=== PATIENT | female | born 1990 | race Caucasian/White ===

== ENCOUNTER 2018-03-09 19:05 | Emergency (ER) | payer OTHER, MEDICAID, SELFPAY ==
[2018-03-09 19:19] VITALS: BP 139/82; PULSE 69; RESP 15; TEMP 36.5; O2SAT 100; BMI 29.2
--- NOTE | 2018-03-09 19:44 | ED.PREGNANCY ---
HPI - General Chief complaint: OB/Uterine Contractions Stated complaint: THINKS SHE HAD MISCARRIAGE Time Seen by Provider: 03/09/18 19:34 Source: patient Mode of arrival: ambulatory Limitations: no limitations History of Present Illness HPI Narrative: Patient is a at which she thinks is 6 weeks EGA by her last menstrual period unknown blood type here for evaluation of vaginal bleeding. She states that the vaginal bleeding started earlier this evening. She states that it is as much as a menstrual cycle. She states she had multiple positive home tests in the past several weeks. She states she does have some cramping. No urinary symptoms. Has not been evaluated by an OB provider to this point in this . Patient : Yes Related Data Home Medications Medication Instructions Recorded Confirmed [id number] fumarate-FA 1 cap PO QAM 03/09/18 03/09/18 [] Allergies Allergy/AdvReac Type Severity Reaction Status Date / Time acetaminophen [From Vicodin] AdvReac Verified 03/09/18 19:18 hydrocodone [From Vicodin] AdvReac Verified 03/09/18 19:18 Review of Systems Constitutional Denies chills, Denies fever(s), Denies lethargy and Denies weakness Gastrointestinal Comments: Some lower abdominal cramping Genitourinary Comments: Vaginal bleeding Integumentary/Breasts Denies pruritus, Denies erythema, Denies rash and Denies wounds Neurologic Denies weakness Hematologic/Lymphatic Denies easy bruising PMFSH - Past Medical History Medical history: Reports no medical history Surgical history: Reports no surgical history Patient : Yes Family history: Reports no significant family history Exam Initial Vital Signs Initial Vital Signs: Vital Signs Temperature 97.7 F 03/09/18 19:19 Pulse Rate 69 03/09/18 19:19 Respiratory Rate 15 03/09/18 19:19 Blood Pressure 139/82 H 03/09/18 19:19 Pulse Oximetry 100 03/09/18 19:19 Const General: cooperative and well developed Nutritional Appearance: well nourished Orientation: alert, awake, oriented x3 and not confused Resp Effort & Inspection: normal respiratory effort, able to speak in complete sentences, no respiratory distress and no use of accessory muscles Auscultation: clear to auscultation bilaterally, no rales, no rhonchi and no wheezes Cardio Rate: regular rate Rhythm: regular rhythm Heart Sounds: no click, no gallops, no murmurs and no rubs Pulses: normal peripheral pulses GI Inspection: non-distended Palpation: soft, no hepatosplenomegaly, No guarding, No pulsatile mass and No tender Auscultation: normal bowel sounds Skin General: no rashes or lesions noted, No jaundice and No petechiae Neuro General: alert, oriented x3, gait normal and no focal motor deficits Speech: speech normal Extrem General: full ROM, no clubbing, cyanosis or edema, no pedal edema and no calf tenderness Course Orders Ordered: ED Orders 03/09/18 19:36 Urine Culture Stat Urine Microscopic Stat 03/09/18 19:44 US pelvic complete Stat 03/09/18 19:56 ABO RH Type Stat Basic Metabolic Panel Stat Complete Blood Count AUTO DIFF Stat HCG Quantitative Stat Vital Signs - 8 hr 03/09/18 19:19 03/09/18 20:42 03/09/18 22:00 Temperature 97.7 F Pulse Rate 69 67 72 Respiratory Rate 15 16 18 Blood Pressure 139/82 H 122/79 H Blood Pressure [Right Arm] 124/81 H Pulse Oximetry 100 100 100 MDM - OB/Uterine Contractions Lab Data Attestation: I reviewed the patient's lab results. Result diagrams: 03/09/18 19:56 03/09/18 19:56 Lab Results 03/09/18 03/09/18 03/09/18 Range/Units 19:36 19:56 19:56 WBC (4.5-11.0) X10^3/uL RBC (4.0-5.2) X10^6/uL Hgb (12.0-16.0) g/dL Hct (36-46) % MCV (80-100) fL MCH (26-34) PG MCHC (30-36) % RDW (11.6-14.8) % Plt Count (150-400) X10^3/uL Neut % (Auto) (50-75) % Lymph % (Auto) (25-40) % [place] % (Auto) (3-14) % Eos % (Auto) (2-4) % Baso % (Auto) (0-2) % Neut # (Auto) (0316-8998) /uL Sodium (137-145) mmol/L Potassium (3.4-5.1) mmol/L Chloride (98-107) mmol/L Carbon Dioxide (22-32) mmol/L BUN (7-17) mg/dL Creatinine (0.52-1.04) mg/dL Estimated GFR (>60) mL/min BUN/Creatinine Ratio (6-22) Glucose (70-100) mg/dL Calcium (8.4-10.2) mg/dL HCG, Quant 16.77 mIU/mL Urine RBC 10-30/hpf H (0-5/HPF) Urine WBC 10-30/hpf H (0-5/HPF) Urine Bacteria None seen (None) Ur Culture Indicated? Specimen cultured Micro UA Comment Not Reportable Blood Type O Positive 03/09/18 03/09/18 Range/Units 19:56 19:56 WBC 11.1 H (4.5-11.0) X10^3/uL RBC 4.36 (4.0-5.2) X10^6/uL Hgb 13.1 (12.0-16.0) g/dL Hct 38.8 (36-46) % MCV 89.0 (80-100) fL MCH 30.1 (26-34) PG MCHC 33.8 (30-36) % RDW 12.5 (11.6-14.8) % Plt Count 362 (150-400) X10^3/uL Neut % (Auto) 67.9 (50-75) % Lymph % (Auto) 22.3 L (25-40) % [place] % (Auto) 6.8 (3-14) % Eos % (Auto) 1.9 L (2-4) % Baso % (Auto) 1.1 (0-2) % Neut # (Auto) 7500 H (5422-8847) /uL Sodium 142 (137-145) mmol/L Potassium 4.1 (3.4-5.1) mmol/L Chloride 104 (98-107) mmol/L Carbon Dioxide 27 (22-32) mmol/L BUN 12 (7-17) mg/dL Creatinine 0.80 (0.52-1.04) mg/dL Estimated GFR > 60.0 (>60) mL/min BUN/Creatinine Ratio 15.0 (6-22) Glucose 102 H (70-100) mg/dL Calcium 9.6 (8.4-10.2) mg/dL HCG, Quant mIU/mL Urine RBC (0-5/HPF) Urine WBC (0-5/HPF) Urine Bacteria (None) Ur Culture Indicated? Micro UA Comment Blood Type Imaging Data Pelvic ultrasound: Radiologist's impression: PROCEDURE: US PELVIC COMPLETE INDICATIONS: approx 6 weeks ega with bleeding TECHNIQUE: Real-time scanning was performed of the pelvic organs, with image documentation. Additional endovaginal scanning was necessary due to incomplete visualization of the adnexal and endometrial structures by transabdominal scanning. COMPARISON: None. FINDINGS: Transabdominal scanning: Limited scanning through the kidneys shows no hydronephrosis. No pathologic free abdominal or pelvic fluid. Endovaginal scanning: Uterus: Uterus is normal in size at 8.5 x 4.4 x 5.3 cm. The endometrium measures 16 mm in combined thickness. Ovaries: Right ovary measures 2.4 x 1.6 x 2.8 CM. The left ovary measures 3.4 x 2.7 x 2.8 CM. There is a 2.3 cm left ovarian cyst. IMPRESSION: No intrauterine gestation identified. Given the patient's positive test possibilities include spontaneous , normal too small for identification with ultrasound, or ectopic . No direct evidence of ectopic is identified. Please note ultrasound cannot exclude ectopic . Recommend short term clinical and sonographic followup. Dictated by: Mo Bustamante M.D. on 03/09/2018 at 21:02 MDM Narrative Medical decision making narrative: Patient is Rh positive. No IUP seen on pelvic ultrasound however her hCG quant is only 14. I suspect in this clinical setting that she is having a miscarriage however there is some question about her exact gestational age. I discussed all this with the patient. Informed her that she needed to contact her primary doctor tomorrow to schedule a repeat HCG quant in 48 hr. She was given return precautions. She expressed understanding and agreement with plan. Discharge Plan Departure Patient Disposition: Home, Self-Care Clinical Impression: Miscarriage, threatened, early Discharge Date/Time: 03/09/18 21:50 Interventions: ED Discharge Assessment Last Done: 03/09/18 22:00 Instructions: Dealing With Miscarriage, DI for Miscarriage Activity Restrictions/Additional Instructions: Tomorrow you need to contact your primary care doctor's office to schedule a recheck all of your hormone level in at least 48 hr. Return to the emergency department for any new symptoms, worsening pain, bleeding more than 1 pad an hour for 4 hr or any other concerning symptoms. Recommend that you continue to take the vitamins as directed. Prescriptions: No Action [id number] fumarate-FA [] 28-800 mg-mcg Tablet 1 cap PO QAM RF: 0
[2018-03-09 19:50] LABS: Bacteria Urine None Seen
--- NOTE | 2018-03-09 20:01 | PC.NURSE ---
pt reports vag spotting started at work this afternoon and progressively increasing in amt. Bright red w/o clots and mild abd cramping associated with this vag bleeding.
[2018-03-09 20:02] LABS: Add Manual Diff / Slide Review NO; Basophils Percent Auto 1.1 % (0-2); Eosinophils Percent Auto 1.9 % (2-4); Hematocrit 38.8 % (36-46); Hemoglobin 13.1 g/dL (12.0-16.0); Lymphocytes Percent Auto 22.3 % (25-40); Mean Corpuscular HGB Conc 33.8 % (30-36); Mean Corpuscular Hemoglobin 30.1 PG (26-34); Monocytes Percent Auto 6.8 % (3-14); Neutrophils Absolute Auto 7500 /uL (3000-5900); Neutrophils Percent Auto 67.9 % (50-75); Platelet Count 362 X10^3/uL (150-400); Red Blood Cell Count 4.36 X10^6/uL (4.0-5.2); Red Cell Distribution Width 12.5 % (11.6-14.8); White Blood Cell Count 11.1 X10^3/uL (4.5-11.0)
[2018-03-09 20:05] LABS: Culture Indicated Urine Specimen Cultured; RBC Urine 10-30/HPF (0-5/HPF); WBC Urine 10-30/HPF (0-5/HPF)
[2018-03-09 20:14] LABS: Blood Urea Nitrogen 12 mg/dL (7-17); Calcium 9.6 mg/dL (8.4-10.2); Carbon Dioxide 27 mmol/L (22-32); Chloride 104 mmol/L (98-107); Estimated Glomerular Filt Rate > 60.0 mL/min (>60); Glucose 102 mg/dL (70-100); HEMOLYSIS < 15 (0-50); Potassium 4.1 mmol/L (3.4-5.1); Sodium 142 mmol/L (137-145)
--- NOTE | 2018-03-09 20:33 | PC.NURSE ---
Stand by assist provided for US tech Brent for pelvic US test
[2018-03-09 20:42] VITALS: BP 124/81; PULSE 67; RESP 16; O2SAT 100
--- NOTE | 2018-03-09 21:28 | PC.NURSE ---
Care endorsed to SMITH Almanza for continuation of care.
[2018-03-09 22:00] VITALS: BP 122/79; PULSE 72; RESP 18; O2SAT 100
[2018-03-15 20:56] LABS: HCG Quantitative /Beta subunit 16.77 mIU/mL
== END 2018-03-09 21:50 | disposition home or self-care (01) ==
PROVIDERS: Emergency Provider Emergency Medicine; PCP Family Medicine
DX: O20.0 Threatened abortion (principal)
CPT/HCPCS: 36415; 76856; 80048; 81003; 81015; 81025; 84702; 85025; 86900; 86901; 87077; 87086; 99282; 99284

== ENCOUNTER → 2018-09-19 10:25 | Outpatient (CLI) | payer OTHER, MEDICAID, SELFPAY | PROVIDERS: Visit Provider Physician Assistant | DX: N39.0 Urinary tract infection, site not specified (principal); N94.9 Unspecified condition associated with female genital organs and menstrual cycle | CPT/HCPCS: 87086; 87210; 87491; 87591 ==

== ENCOUNTER → 2018-12-24 12:48 | Outpatient (CLI) | payer OTHER, MEDICAID, SELFPAY | PROVIDERS: Visit Provider Physician Assistant | DX: N89.8 Other specified noninflammatory disorders of vagina (principal) | CPT/HCPCS: 87210 ==

== ENCOUNTER 2019-09-12 20:55 | Emergency (ER) | payer OTHER, MEDICAID, SELFPAY ==
[2019-09-12 21:01] VITALS: BP 129/77; PULSE 64; RESP 24; TEMP 35.8; O2SAT 97
[2019-09-12] MEDS: SODIUM CHLORIDE 0.9% 1,000 ML 1000 ML IV ×2 (21:13→22:20)
[2019-09-12] MEDS: ONDANSETRON 4 MG/2 ML INJ IV ×2 (21:13→21:47)
[2019-09-12] MEDS: KETOROLAC 60 MG/2 ML VIAL 30 MG IV (21:47)
[2019-09-12 21:48] LABS: Add Manual Diff / Slide Review NO; Basophils Absolute Auto 100 /uL (0-100); Basophils Percent Auto 0.5 % (0-2); Eosinophils Absolute Auto 0 /uL (0-450); Eosinophils Percent Auto 0.1 % (2-4); Hematocrit 40.5 % (36-46); Hemoglobin 13.8 g/dL (12.0-16.0); Lymphocytes Absolute Auto 1700 /uL (1100-4500); Lymphocytes Percent Auto 9.2 % (25-40); Mean Corpuscular HGB Conc 34.1 % (30-36); Mean Corpuscular Hemoglobin 30.2 PG (26-34); Mean Corpuscular Volume 88.7 fL (80-100); Monocytes Absolute Auto 400 /uL (0-900); Monocytes Percent Auto 2.3 % (3-14); Neutrophils Absolute Auto 16600 /uL (1500-7000); Neutrophils Percent Auto 87.9 % (50-75); Platelet Count 424 X10^3/uL (150-400); Red Blood Cell Count 4.56 X10^6/uL (4.0-5.2); Red Cell Distribution Width 13.1 % (11.6-14.8); White Blood Cell Count 18.9 X10^3/uL (4.5-11.0)
[2019-09-12 21:50] LABS: Alanine Aminotransferase 25 IU/L (<35); Albumin 4.7 g/dL (3.5-5.0); Albumin Globulin Ratio 1.5 (1.0-2.8); Alkaline Phosphatase 86 U/L (38-126); Aspartate Aminotransferase 45 IU/L (14-36); BUN Creatinine Ratio 16.7 (6-22); Bilirubin Total 0.6 mg/dL (0.2-1.3); Blood Urea Nitrogen 15 mg/dL (7-17); Calcium 9.9 mg/dL (8.4-10.2); Carbon Dioxide 18 mmol/L (22-32); Chloride 104 mmol/L (98-107); Estimated Glomerular Filt Rate > 60.0 mL/min (>60); Globulin 3.1 g/dL (1.7-4.1); Glucose 180 mg/dL (70-100); HEMOLYSIS < 15 (0-50); Lipase 101 U/L (23-300); Potassium 3.8 mmol/L (3.4-5.1); Sodium 137 mmol/L (137-145); Total Protein 7.8 g/dL (6.3-8.2)
--- NOTE | 2019-09-12 22:06 | ED.ABDPAIN ---
HPI - Abdominal Pain General Chief Complaint: Abdominal Pain Stated Complaint: ABDOMINAL PAIN Time Seen by Provider: 09/12/19 22:06 Source: patient and family Mode of arrival: Ambulatory Limitations: no limitations History of Present Illness HPI narrative: 29-year-old female comes to the emergency department with complaint of abdominal pain, nausea and vomiting and diarrhea that all started today about 5:00 a.m. this evening. Patient has not had fevers but she has felt super chilled. She has goose bumps when I evaluate her. She complains of generalized abdominal pains not really localize to 1 area but does kind of radiate to the back area too. She states that this all started when she felt like she had to go to the bathroom and she had a large amount of diarrhea. She denies any black or blood in her stool. Any urinary symptoms. Patient denies any medical problems otherwise. States she has not had similar symptoms in the past. Denies any prior surgical history. States that she is allergic to Vicodin and it sometimes makes her throw up. Patient states she uses marijuana but denies alcohol, tobacco or other illicit. Related Data Home Medications Medication Instructions Recorded Confirmed [id number] fumarate-FA 1 cap PO QAM 03/09/18 12/24/18 [] Previous Rx's Medication Instructions Recorded fluconazole 150 mg tablet 150 mg PO ONCE #1 tab 12/24/18 Allergies Allergy/AdvReac Type Severity Reaction Status Date / Time acetaminophen [From Vicodin] AdvReac Verified 12/24/18 12:05 hydrocodone [From Vicodin] AdvReac Verified 12/24/18 12:05 Review of Systems Review of Systems ROS Unobtainable: All systems reviewed & are unremarkable except as noted in HPI and below Patient History Medical History 2 (Resolved) Vaginal delivery (Resolved) Social History Smoking Status: Never smoker alcohol intake frequency: 0-2 drinks per day Substance Use Type: marijuana Exam Narrative Exam Narrative: GENERAL: Alert and oriented x three, moderately obese female in moderate distress. Patient appears pale and uncomfortable. HEENT: Head normocephalic, atraumatic, EOMI, pupils reactive, face symmetric, moist mucous membranes NECK: Supple, full range of motion CARDIOVASCULAR: Regular rate and rhythm without murmurs, rubs or gallops. RESPIRATORY: Breath sounds equal bilaterally, no wheezes rales or rhonchi. ABDOMEN: Soft, generalized tenderness. Nondistended. Normoactive bowel sounds all 4 quadrants. No guarding or rebound, rigidity, no mass : No CVA tenderness EXTREMITIES: Normal range of motion, no clubbing or edema. Neurovascularly intact NEUROLOGICAL: Cranial nerves II through XII grossly intact. Moving all extremities SKIN: Warm, dry, no petechiae, no rashes or lesions. Patient does have goosebumps and piloerection Initial Vital Signs Initial Vital Signs: Vital Signs Temperature 96.4 F L 09/12/19 21:01 Pulse Rate 64 09/12/19 21:01 Respiratory Rate 24 09/12/19 21:01 Blood Pressure 129/77 09/12/19 21:01 Pulse Oximetry 97 09/12/19 21:01 Course Orders Ordered: ED Orders 09/12/19 22:00 Urine Microscopic Stat 09/12/19 22:13 CT abdomen pelvis w con Stat 09/12/19 22:35 Lactate (Lactic Acid) Stat 09/12/19 22:41 Blood Culture Stat 09/12/19 23:14 EKG-12 Lead Stat 09/13/19 02:36 Troponin & CK Cardiac Panel Stat Sodium Chloride (Normal Saline 0.9%) 1,000 mls @ 1,000 mls/hr IV BOLUS PRN PRN Reason: Fluid replacement Last Infusion: 09/13/19 00:15 Dose: 0 mls/hr Documented by: Admin: 09/12/19 22:20 Dose: 1,000 mls/hr Documented by: BRIAN Discontinued Medications Diphenhydramine HCl (Benadryl) 50 mg IV NOW ONE Stop: 09/13/19 01:55 Last Admin: 09/13/19 02:00 Dose: 50 mg Documented by: JESSICA Sodium Chloride (Normal Saline 0.9%) 1,000 mls @ 1,000 mls/hr IV BOLUS ONE Stop: 09/12/19 22:08 Last Infusion: 09/12/19 22:20 Dose: 0 mls/hr Documented by: Admin: 09/12/19 21:13 Dose: 1,000 mls/hr Documented by: BHARATI Sodium Chloride (Normal Saline 0.9%) 1,000 mls @ 1,000 mls/hr IV BOLUS ONE Stop: 09/13/19 01:25 Last Infusion: 09/13/19 03:16 Dose: 0 mls/hr Documented by: Admin: 09/13/19 01:15 Dose: 1,000 mls/hr Documented by: JESSICA Ketorolac Tromethamine (Toradol) 30 mg IV NOW ONE Stop: 09/12/19 21:42 Last Admin: 09/12/19 21:47 Dose: 30 mg Documented by: BRIAN Lorazepam (Ativan) 0.5 mg IV NOW ONE Stop: 09/12/19 22:11 Last Admin: 09/12/19 22:20 Dose: 0.5 mg Documented by: BRIAN Morphine Sulfate (Morphine) 4 mg IV NOW ONE Stop: 09/12/19 22:11 Last Admin: 09/12/19 22:19 Dose: 4 mg Documented by: BRIAN Ondansetron HCl (Zofran) 4 mg IV NOW ONE Stop: 09/12/19 21:11 Last Admin: 09/12/19 21:13 Dose: 4 mg Documented by: BHARATI Ondansetron HCl (Zofran) 4 mg IV NOW ONE Stop: 09/12/19 21:41 Last Admin: 09/12/19 21:47 Dose: 4 mg Documented by: BRIAN Ondansetron HCl (Zofran Odt Prepack) 1 bottle MISC SEEINSTR ONE Stop: 09/13/19 01:34 Last Admin: 09/13/19 01:44 Dose: 1 bottle Documented by: JAMESFARL Prochlorperazine (Compazine) 10 mg IV NOW ONE Stop: 09/13/19 01:55 Last Admin: 09/13/19 02:00 Dose: 10 mg Documented by: JESSICA Vital Signs Vital signs: Vital Signs - 8 hr 09/12/19 22:48 09/13/19 00:04 09/13/19 01:21 Pulse Rate 45 L 48 L 70 Respiratory Rate 16 14 23 Blood Pressure Blood Pressure [Right Arm] 151/84 H 108/49 L 141/81 H Pulse Oximetry 93 98 100 09/13/19 02:00 09/13/19 02:34 09/13/19 04:42 Pulse Rate 53 L 50 L 64 Respiratory Rate 16 10 L Blood Pressure 163/85 H Blood Pressure [Right Arm] 134/81 107/66 Pulse Oximetry 100 99 09/13/19 05:38 09/13/19 06:08 Pulse Rate 43 L 52 L Respiratory Rate 13 13 Blood Pressure Blood Pressure [Right Arm] 103/55 L 100/50 L Pulse Oximetry 99 98 MDM - Abdominal Pain Lab Data Attestation: I reviewed the patient's lab results. Result diagrams: 09/12/19 21:15 09/12/19 21:15 Labs: Lab Results 09/12/19 09/12/19 09/12/19 Range/Units 21:15 21:15 21:15 WBC 18.9 H (4.5-11.0) X10^3/uL RBC 4.56 (4.0-5.2) X10^6/uL Hgb 13.8 (12.0-16.0) g/dL Hct 40.5 (36-46) % MCV 88.7 (80-100) fL MCH 30.2 (26-34) PG MCHC 34.1 (30-36) % RDW 13.1 (11.6-14.8) % Plt Count 424 H (150-400) X10^3/uL Neut % (Auto) 87.9 H (50-75) % Lymph % (Auto) 9.2 L (25-40) % [place] % (Auto) 2.3 L (3-14) % Eos % (Auto) 0.1 L (2-4) % Baso % (Auto) 0.5 (0-2) % Neut # (Auto) 47340 H (5097-4499) /uL Lymph # (Auto) 1700 (8789-8262) /uL [place] # (Auto) 400 (0-900) /uL Eos # (Auto) 0 (0-450) /uL Baso # (Auto) 100 (0-100) /uL Sodium 137 (137-145) mmol/L Potassium 3.8 (3.4-5.1) mmol/L Chloride 104 (98-107) mmol/L Carbon Dioxide 18 L (22-32) mmol/L BUN 15 (7-17) mg/dL Creatinine 0.90 (0.52-1.04) mg/dL Estimated GFR > 60.0 (>60) mL/min BUN/Creatinine Ratio 16.7 (6-22) Glucose 180 H (70-100) mg/dL Lactate (0.7-2.1) mmol/L Calcium 9.9 (8.4-10.2) mg/dL Total Bilirubin 0.6 (0.2-1.3) mg/dL AST 45 H (14-36) IU/L ALT 25 (<35) IU/L Alkaline Phosphatase 86 (38-126) U/L Total Creatine Kinase (30-135) U/L CK-MB (CK-2) CK-MB (CK-2) Rel Index Troponin I (0.01-0.034) ng/mL Total Protein 7.8 (6.3-8.2) g/dL Albumin 4.7 (3.5-5.0) g/dL Globulin 3.1 (1.7-4.1) g/dL Albumin/Globulin Ratio 1.5 (1.0-2.8) Lipase 101 (23-300) U/L Serum , Qual Negative (Negative) Urine RBC (0-5/HPF) Urine WBC (0-5/HPF) Ur Squamous Epith Cells (0-5/HPF) Amorphous Sediment Urine Bacteria (None) Urine Mucus (Negative) Ur Culture Indicated? 09/12/19 09/12/19 09/12/19 Range/Units 21:15 22:00 22:35 WBC (4.5-11.0) X10^3/uL RBC (4.0-5.2) X10^6/uL Hgb (12.0-16.0) g/dL Hct (36-46) % MCV (80-100) fL MCH (26-34) PG MCHC (30-36) % RDW (11.6-14.8) % Plt Count (150-400) X10^3/uL Neut % (Auto) (50-75) % Lymph % (Auto) (25-40) % [place] % (Auto) (3-14) % Eos % (Auto) (2-4) % Baso % (Auto) (0-2) % Neut # (Auto) (0081-1751) /uL Lymph # (Auto) (7906-3270) /uL [place] # (Auto) (0-900) /uL Eos # (Auto) (0-450) /uL Baso # (Auto) (0-100) /uL Sodium (137-145) mmol/L Potassium (3.4-5.1) mmol/L Chloride (98-107) mmol/L Carbon Dioxide (22-32) mmol/L BUN (7-17) mg/dL Creatinine (0.52-1.04) mg/dL Estimated GFR (>60) mL/min BUN/Creatinine Ratio (6-22) Glucose (70-100) mg/dL Lactate 3.0 H (0.7-2.1) mmol/L Calcium (8.4-10.2) mg/dL Total Bilirubin (0.2-1.3) mg/dL AST (14-36) IU/L ALT (<35) IU/L Alkaline Phosphatase (38-126) U/L Total Creatine Kinase 79 (30-135) U/L CK-MB (CK-2) TNP CK-MB (CK-2) Rel Index TNP Troponin I < 0.012 (0.01-0.034) ng/mL Total Protein (6.3-8.2) g/dL Albumin (3.5-5.0) g/dL Globulin (1.7-4.1) g/dL Albumin/Globulin Ratio (1.0-2.8) Lipase (23-300) U/L Serum , Qual (Negative) Urine RBC None seen (0-5/HPF) Urine WBC 5-10/hpf H (0-5/HPF) Ur Squamous Epith Cells 5-10 /hpf H (0-5/HPF) Amorphous Sediment 1+ Urine Bacteria Moderate (10-30) H (None) Urine Mucus 1+ H (Negative) Ur Culture Indicated? Cult not indicated 09/13/19 Range/Units 00:45 WBC (4.5-11.0) X10^3/uL RBC (4.0-5.2) X10^6/uL Hgb (12.0-16.0) g/dL Hct (36-46) % MCV (80-100) fL MCH (26-34) PG MCHC (30-36) % RDW (11.6-14.8) % Plt Count (150-400) X10^3/uL Neut % (Auto) (50-75) % Lymph % (Auto) (25-40) % [place] % (Auto) (3-14) % Eos % (Auto) (2-4) % Baso % (Auto) (0-2) % Neut # (Auto) (8580-4607) /uL Lymph # (Auto) (1001-0200) /uL [place] # (Auto) (0-900) /uL Eos # (Auto) (0-450) /uL Baso # (Auto) (0-100) /uL Sodium (137-145) mmol/L Potassium (3.4-5.1) mmol/L Chloride (98-107) mmol/L Carbon Dioxide (22-32) mmol/L BUN (7-17) mg/dL Creatinine (0.52-1.04) mg/dL Estimated GFR (>60) mL/min BUN/Creatinine Ratio (6-22) Glucose (70-100) mg/dL Lactate 1.1 (0.7-2.1) mmol/L Calcium (8.4-10.2) mg/dL Total Bilirubin (0.2-1.3) mg/dL AST (14-36) IU/L ALT (<35) IU/L Alkaline Phosphatase (38-126) U/L Total Creatine Kinase (30-135) U/L CK-MB (CK-2) CK-MB (CK-2) Rel Index Troponin I (0.01-0.034) ng/mL Total Protein (6.3-8.2) g/dL Albumin (3.5-5.0) g/dL Globulin (1.7-4.1) g/dL Albumin/Globulin Ratio (1.0-2.8) Lipase (23-300) U/L Serum , Qual (Negative) Urine RBC (0-5/HPF) Urine WBC (0-5/HPF) Ur Squamous Epith Cells (0-5/HPF) Amorphous Sediment Urine Bacteria (None) Urine Mucus (Negative) Ur Culture Indicated? Point of care testing: Point of Care Testing Test Results Negative Urine Dip Bedside Urine Glucose Negative Bedside Urine Bilirubin - Negative Bedside Urine Ketone +++ 80 Urine Specific [place] 1.015 Bedside Urine Occult Blood - Negative Bedside Urine pH 8.5 Bedside Urine Protein +/- 15 Bedside Urine Urobilinogen - Negative Bedside Urine Nitrite - Negative Bedside Urine Leukocytes - Negative Esterase Imaging Data CT scan - abdomen: Radiologist's impression: Moderate liver enlargement with periportal edema with venous or lymphatic congestion. No discrete liver lesions. ECG Data Attestation: I personally reviewed and interpreted this ECG as follows: Interpretation: Sinus bradycardia with sinus arrhythmia, rate of 38, VT 156, QRS of 91 and QTC of 406. MDM Narrative Medical decision making narrative: With General surgery with Dr. Fred valdivia. She states this could possibly be 2nd to an enteritis, she states a very nonspecific finding. She would follow the patient clinically and if they are improving could potentially be discharged home. If there is worsening than but potentially need further evaluation. Patient had several episodes of dry heaves after initial medications. After last round of medications, patient was able to sleep several hours and is feeling much better. Pain is at 2/10 with no nausea at this time. Patient and I did discuss that her lactate improved. Patient has had intermittently sinus bradycardia particularly when she is asleep. But her pressures have not been inappropriate. Discussed with patient possible causes, the findings on her CT including her changes of the liver. We also discussed signs and symptoms and reasons to return. Patient was given Zofran prepack. Strict return precautions. Differential could include enteritis, possible other acute intra-abdominal process, possibly hyperemesis cannabis although she has not had these symptoms in the past she does use THC. Discharge Plan Departure Patient Disposition: Home Clinical Impression: Enteritis Discharge Date/Time: 09/13/19 06:30 Instructions: DI for Enteritis Activity Restrictions/Additional Instructions: Follow up in 2-3 days for recheck if your symptoms have not totally resolved. You may take 1 Zofran sublingually every 6 hours as needed for nausea. I would not eat any solid foods this evening, I would start clear liquids later in the morning and advance your diet as tolerated. Return to the emergency department for fevers greater 100.4 F, persistent vomiting, rapidly worsening abdominal or flank pain, passing out, black or bloody stools or other new or concerning symptoms. Prescriptions: No Action fluconazole 150 mg tablet 150 mg PO ONCE Qty: 1 RF: 0 [id number] fumarate-FA [] 28-800 mg-mcg Tablet 1 cap PO QAM RF: 0
--- NOTE | 2019-09-12 22:13 | DI.CT.S_ITS ---
PROCEDURE: CT ABDOMEN PELVIS W CON INDICATIONS: abdominal pain, generalized, vomiting and diarrhea today TECHNIQUE: After the administration of intravenous contrast, 5 mm thick sections acquired from the diaphragm to the symphysis. 5 mm coronal and sagittal reformats were acquired. For radiation dose reduction, the following was used: automated exposure control, adjustment of mA and/or kV according to patient size. COMPARISON: None. FINDINGS: Image quality: Excellent. ABDOMEN: Lung bases: Lung bases are clear. Heart size is normal. Solid organs: Liver is mildly enlarged. There is prominent periportal edema. Gallbladder is normal. Biliary system is non dilated. Pancreas enhances normally. Spleen is normal in size and enhancement. No adrenal nodules. Kidneys demonstrate normal size and enhancement, without hydronephrosis. Peritoneum and bowel: Bowel loops demonstrate normal caliber. There is mural thickening in the proximal intestine primarily involving jejunum. Mild colonic wall thickening involving the descending and transverse colon. No free air. There is a small amount of free fluid. Nodes and vessels: No retroperitoneal or mesenteric adenopathy by size criteria. Aorta and inferior vena cava are normal in size. Miscellaneous: No ventral hernias. PELVIS: Genitourinary: Bladder wall thickness is normal. Uterus is normal. There is a 1.9 cm irregular right ovarian cyst with peripheral enhancement likely a collapsing corpus luteum. A small amount of free fluid is present. Miscellaneous: No inguinal hernias or adenopathy. Bones: No suspicious bony lesions. No vertebral body compression fractures. IMPRESSION: 1. Mild hepatomegaly. There is prominent periportal edema suggesting hepatitis. Please correlate with liver enzymes. 2. There is mural thickening in the proximal intestine primarily involving jejunum as well as colonic wall thickening involving the descending and transverse colon. Differential diagnoses include inflammatory bowel disease versus infectious etiology. 3. There is a 1.9 cm irregular rim enhancing cyst in the right ovary, probably a collapsing corpus luteum. 4. A small amount of free fluid is present. No free air. Dictated by: Krystle Allen M.D. on 09/13/2019 at 8:12 Approved by: Krystle Allen M.D. on 09/13/2019 at 8:26
[2019-09-12] MEDS: MORPHINE 4 MG/ML INJ IV (22:19)
[2019-09-12] MEDS: LORazepam 2 MG/ML INJ 0.5 MG IV (22:20)
[2019-09-12 22:31] LABS: Pregnancy Test Serum,Qual Negative (Negative)
[2019-09-12 22:46] LABS: RBC Urine None Seen (0-5/HPF)
[2019-09-12 22:48] VITALS: BP 151/84; PULSE 45; RESP 16; O2SAT 93
[2019-09-12 22:48] LABS: Squamous Epithelial Cell Urine 5-10 /HPF (0-5/HPF)
[2019-09-12 22:49] LABS: Amorphous Sediment Urine 1+; Bacteria Urine Moderate (10-30); Culture Indicated Urine Cult Not Indicated; Mucus Urine 1+ (Negative); WBC Urine 5-10/HPF (0-5/HPF)
[2019-09-13] VITALS (7 sets, daily range): BP systolic 100–163; BP diastolic 49–85; PULSE 43–70; RESP 10–23; O2SAT 98–100
[2019-09-13 00:48] LABS: Reflexed Lactate in 2 Hours Y
[2019-09-13 01:01] LABS: Lactate 2HR (Lactic Acid Rflx) 1.1 mmol/L (0.7-2.1)
[2019-09-13] MEDS: SODIUM CHLORIDE 0.9% 1,000 ML 1000 ML IV (01:15)
[2019-09-13] MEDS: ONDANSETRON 4 MG ODT PREPACK 1 BOTTLE MISC (01:44)
[2019-09-13] MEDS: diphenhydrAMINE 50 MG/ML VIAL IV (02:00)
[2019-09-13] MEDS: PROCHLORPERAZINE 10 MG/2 ML VIAL IV (02:00)
[2019-09-13 02:48] LABS: Creatine Kinase 79 U/L (30-135)
[2019-09-13 03:01] LABS: Troponin I < 0.012 ng/mL (0.01-0.034)
== END 2019-09-13 06:30 | disposition home or self-care (01) ==
PROVIDERS: Emergency Provider Emergency Medicine
DX: K52.9 Noninfective gastroenteritis and colitis, unspecified (principal); R11.2 Nausea with vomiting, unspecified; R00.1 Bradycardia, unspecified; R16.0 Hepatomegaly, not elsewhere classified
CPT/HCPCS: 36415; 74177; 80053; 81003; 81015; 81025; 82550; 83605; 83690; 84484; 84703; 85025; 87040; 93005; 96361; 96374; 96375; 96376; 99285; J0780; J1200; J1885; J2060; J2270; J2405; Q9967

== ENCOUNTER 2020-10-26 08:51 | Emergency (ER) | payer OTHER, MEDICAID, SELFPAY ==
[2020-10-26] VITALS (15 sets, daily range): BP systolic 112–170; BP diastolic 58–91; PULSE 52–94; RESP 16; TEMP 36.6; O2SAT 99–100; BMI 27.3
--- NOTE | 2020-10-26 09:05 | ED_ITS ---
HPI - General Chief complaint: Abdominal Pain Stated complaint: , EXTREME NAUSEA, VOMITING Time Seen by Provider: 10/26/20 08:56 Source: patient Mode of arrival: Ambulatory Limitations: no limitations History of Present Illness HPI Narrative: Patient is a 30-year-old female who is approximately 6 weeks presents with vomiting. She says it has been ongoing for the last few days but has gotten significantly worse over the last night. She has all-over abdominal pain. She denies any vaginal bleeding. She states she just can not keep anything down. She wishes to terminate this . MD Complaint: abdominal pain Onset (ago): day(s) Pain Consistency: constant Location: abdomen Severity: moderate Relieving factors: none Exacerbating factors: none Associated symptoms: nausea and vomiting Vaginal discharge: none Vaginal bleeding: none Patient : Yes OB History - Previous Pregnancies: hyperemesis Related Data Home Medications Medication Instructions Recorded Confirmed [id number] fumarate-FA 1 cap PO QAM 03/09/18 12/24/18 [] Previous Rx's Medication Instructions Recorded fluconazole 150 mg tablet 150 mg PO ONCE #1 tab 12/24/18 doxylamine-pyridoxine (vit B6) 1 tab PO DAILY PRN #60 tab 10/26/20 ondansetron 4 mg PO Q8H PRN #10 tab 10/26/20 Allergies Allergy/AdvReac Type Severity Reaction Status Date / Time acetaminophen [From Vicodin] AdvReac Verified 10/26/20 09:04 hydrocodone [From Vicodin] AdvReac Verified 10/26/20 09:04 Review of Systems Review of Systems Narrative: GENERAL: Denies chills, fatigue, malaise, fever, sweats, travel HEENT: Denies sinus pain, ear pain, sore throat, difficulty swallowing, neck p ain RESPIRATORY: Denies dyspnea, cough, wheezing, hemoptysis, sputum. CARDIOVASCULAR: Denies chest pain, palpitations, orthopnea, edema GASTROINTESTINAL: See HPI : Denies dysuria, frequency, incontinence, hematuria, urinary retention, flank pain. MUSCULOSKELETAL: Denies weakness, joint pain, or bony pain SKIN: No rash, no erythema, no pruritus NEUROLOGIC: Denies weakness, dizziness, headache, numbness, change in speech, confusion PSYCHIATRIC: No concerning psychosocial issues. 12 point review of systems is negative except for those stated above and HPI PMFSH - Past Medical History Medical history: Reports no medical history Surgical history: Reports no surgical history Patient : Yes Family History Family history: Reports no significant family history Exam Initial Vital Signs Initial Vital Signs: Vital Signs Temperature 97.9 F 10/26/20 09:01 Pulse Rate 65 10/26/20 09:01 Respiratory Rate 16 10/26/20 09:01 Blood Pressure 152/73 H 10/26/20 09:01 Pulse Oximetry 100 10/26/20 09:01 GENERAL: Alert 30-year-old female appears to not feel well actually dry heaving HEENT: Head atraumatic,EOMI, pupils reactive, face symmetric, moist mucous membranes CARDIOVASCULAR: Regular rate and rhythm without murmurs, rubs or gallops. RESPIRATORY: Breath sounds equal bilaterally, no wheezes rales or rhonchi. ABDOMEN: Soft, diffuse all-over pain no localization no guarding no rebound : No CVA tenderness EXTREMITIES: Normal range of motion, no clubbing or edema. Neurovascularly intact NEUROLOGICAL: Alert and oriented x4.Normal gait and speech. Cranial nerves II through XII grossly intact. SKIN: Warm, dry, no laceration, no petechiae, no rashes or lesions. Course Orders Ordered: ED Orders 10/26/20 09:15 Complete Blood Count AUTO DIFF Stat Comprehensive Metabolic Panel Stat 10/26/20 11:48 US OB <= 14 weeks fetus Stat Discontinued Medications Diphenhydramine HCl (Diphenhydramine 50 Mg/Ml Vial) 25 mg IV NOW ONE Stop: 10/26/20 09:32 Last Admin: 10/26/20 09:35 Dose: 25 mg Documented by: MIRELLA Sodium Chloride (Normal Saline 0.9%) 1,000 mls @ 1,000 mls/hr IV BOLUS ONE Stop: 10/26/20 10:02 Last Infusion: 10/26/20 10:25 Dose: 0 mls/hr Documented by: Admin: 10/26/20 09:21 Dose: 1,000 mls/hr Documented by: NALDO Sodium Chloride (Normal Saline 0.9%) 1,000 mls @ 1,000 mls/hr IV BOLUS ONE Stop: 10/26/20 11:21 Last Infusion: 10/26/20 11:58 Dose: 0 mls/hr Documented by: Admin: 10/26/20 10:38 Dose: 1,000 mls/hr Documented by: MIRELLA Lorazepam (Lorazepam 2 Mg/Ml Inj) 0.5 mg IV NOW ONE Stop: 10/26/20 10:52 Last Admin: 10/26/20 10:57 Dose: 0.5 mg Documented by: MIRELLA Metoclopramide HCl (Metoclopramide 10 Mg/2 Ml Inj) 10 mg IV NOW ONE Stop: 10/26/20 09:32 Last Admin: 10/26/20 09:35 Dose: 10 mg Documented by: MIRELLA Ondansetron HCl (Ondansetron 4 Mg/2 Ml Inj) 4 mg IV NOW ONE Stop: 10/26/20 09:04 Last Admin: 10/26/20 09:21 Dose: 4 mg Documented by: NALDO Vital Signs Vital signs: Vital Signs - 8 hr 10/26/20 09:01 10/26/20 09:06 10/26/20 09:30 Temperature 97.9 F Pulse Rate 65 94 H 58 L Respiratory Rate 16 Blood Pressure 152/73 H Pulse Oximetry 100 100 100 10/26/20 10:00 10/26/20 10:30 10/26/20 10:38 Temperature Pulse Rate 52 L 71 66 Respiratory Rate Blood Pressure 170/91 H Pulse Oximetry 100 100 100 10/26/20 11:00 10/26/20 11:30 10/26/20 12:00 Temperature Pulse Rate 53 L 74 84 Respiratory Rate Blood Pressure Pulse Oximetry 100 100 100 10/26/20 12:01 10/26/20 12:30 10/26/20 12:31 Temperature Pulse Rate 73 78 59 L Respiratory Rate Blood Pressure 112/58 L 123/77 Pulse Oximetry 100 100 100 10/26/20 13:00 10/26/20 13:01 10/26/20 13:30 Temperature Pulse Rate 81 73 66 Respiratory Rate Blood Pressure 128/80 128/80 131/74 Pulse Oximetry 100 99 100 MDM - OB/Uterine Contractions Lab Data Attestation: I reviewed the patient's lab results. Result diagrams: 10/26/20 09:15 10/26/20 09:15 Labs: Lab Results 10/26/20 10/26/20 Range/Units 09:15 09:15 WBC 12.3 H (4.5-11.0) X10^3/uL RBC 4.88 (4.0-5.2) X10^6/uL Hgb 14.4 (12.0-16.0) g/dL Hct 42.5 (36-46) % MCV 87.1 (80-100) fL MCH 29.6 (26-34) PG MCHC 34.0 (30-36) % RDW 12.8 (11.6-14.8) % Plt Count 477 H (150-400) X10^3/uL Neut % (Auto) 81.5 H (50-75) % Lymph % (Auto) 14.2 L (25-40) % [place] % (Auto) 3.3 (3-14) % Eos % (Auto) 0.4 L (2-4) % Baso % (Auto) 0.6 (0-2) % Neut # (Auto) 97931 H (3595-1573) /uL Lymph # (Auto) 1700 (6920-3412) /uL [place] # (Auto) 400 (0-900) /uL Eos # (Auto) 100 (0-450) /uL Baso # (Auto) 100 (0-100) /uL Sodium 135 L (137-145) mmol/L Potassium 3.8 (3.4-5.1) mmol/L Chloride 103 (98-107) mmol/L Carbon Dioxide 19 L (22-32) mmol/L BUN 9 (7-17) mg/dL Creatinine 0.85 (0.52-1.04) mg/dL Estimated GFR > 60.0 (>60) mL/min BUN/Creatinine Ratio 10.6 (6-22) Glucose 171 H (70-100) mg/dL Calcium 10.0 (8.4-10.2) mg/dL Total Bilirubin 1.1 (0.2-1.3) mg/dL AST 29 (14-36) IU/L ALT 17 (<35) IU/L Alkaline Phosphatase 80 (38-126) U/L Total Protein 8.3 H (6.3-8.2) g/dL Albumin 4.8 (3.5-5.0) g/dL Globulin 3.5 (1.7-4.1) g/dL Albumin/Globulin Ratio 1.4 (1.0-2.8) Point of Care Testing Test Results Positive Urine Dip Bedside Urine Glucose Negative Bedside Urine Bilirubin - Negative Bedside Urine Ketone +++ 80 Urine Specific [place] 1.015 Bedside Urine Occult Blood - Negative Bedside Urine pH 8.0 Bedside Urine Protein - Negative Bedside Urine Urobilinogen - Negative Bedside Urine Nitrite - Negative Imaging Data US - OB: Radiologist's Impression: PROCEDURE: US OB <= 14 WEEKS FETUS INDICATIONS: VOMITING OUTSIDE/PRIOR DATING DATA: Last menstrual period (LMP): 09/16/2020. LMP-based estimated date of delivery (FLORES): 06/23/2021. First dating scan (date and location): 10/26/2020. Estimated date of delivery (FLORES) from first dating scan: 06/18/2021. TECHNIQUE: Real-time scanning was performed of the fetus and maternal pelvic organs, with image documentation. Endovaginal scanning was also performed to better visualize the fetus and maternal ovaries. COMPARISON: None. FINDINGS: Embryo: A single live intrauterine is seen. The measured heart rate is approximately 100 beats per minute. The crown-rump length measures 0.6 cm, corresponding to an estimated gestational age of 6 weeks 3 days. It is too early for detailed anatomic assessment. By visual inspection, the amount of amniotic fluid is within normal limits. No significant findings of subchorionic/perigestational hemorrhage are seen. Measurement variability in dating: +/- 4 weeks by LMP, +/- 7 days by mean sac diameter (use before 6 weeks gestation if crown-rump length not able to be measured), +/- 5 days by crown-rump length (up to 8 weeks 6 days gestation), +/- 7 days by crown-rump length (up to 13 weeks 6 days gestation). Maternal organs: The right ovary is not seen. The left ovary demonstrates an apparent corpus luteum. Limited images through the kidneys demonstrate no hydroneph rosis. IMPRESSION: A single live intrauterine is seen. No significant discrepancy is found between the estimated gestational age based on these images and the estimated gestational age based upon the given date of the last menstrual period. Dictated by: Yo Grace M.D. on 10/26/2020 at 12:01 Approved by: Yo Grace M.D. on 10/26/2020 at 12:02 [facility] Narrative Medical decision making narrative: 10:20 a.m. patient re-evaluated sleeping at this time Patient still had intermittent dry heaves. She was given Ativan on top of Benadryl the. The seem to help. She is tolerating some ice chips. Recommend she follow up with OB. I sent in prescription for B6 and Zofran Discharge Plan Departure Patient Disposition: Home Clinical Impression: Hyperemesis gravidarum Instructions: Hyperemesis Gravidarum Activity Restrictions/Additional Instructions: *You have been diagnosed with hyperemesis gravidarum *What to do: Increase fluid intake as tolerated. Recommend Gatorade or G atorade like product. Please call OB to discuss options *Continue to take medications as directed--> SENT TO [facility] [place] Zofran 4 mg every 8 hours if needed for nausea or vomiting doxylamine-pyroxine (vit B6) one tab once a day if needed for nausea or vomiting *Follow up with your primary care provider in 2-3 days *Return to ER if you should have persistent vomiting inability to tolerate fluids or any new, worsening or concerning symptoms Prescriptions: New doxylamine-pyridoxine (vit B6) 10-10 mg tablet,delayed release (DR/EC) 1 tab PO DAILY PRN (Reason: vomiting) Qty: 60 RF: 0 ondansetron 4 mg tablet,disintegrating 4 mg PO Q8H PRN (Reason: nausea and vomiting) Qty: 10 RF: 0 No Action fluconazole 150 mg tablet 150 mg PO ONCE Qty: 1 RF: 0 [id number] fumarate-FA [] 28-800 mg-mcg Tablet 1 cap PO QAM RF: 0 Referrals: Janett Curran MD [Physician] - Krystal Mcclure MD [Physician] - Connie Ventura MD [Physician] -
[2020-10-26] MEDS: ONDANSETRON 4 MG/2 ML INJ IV (09:21)
[2020-10-26] MEDS: SODIUM CHLORIDE 0.9% 1,000 ML 1000 ML IV ×2 (09:21→10:38)
[2020-10-26 09:35] LABS: Add Manual Diff / Slide Review NO; Basophils Absolute Auto 100 /uL (0-100); Basophils Percent Auto 0.6 % (0-2); Eosinophils Absolute Auto 100 /uL (0-450); Eosinophils Percent Auto 0.4 % (2-4); Hematocrit 42.5 % (36-46); Hemoglobin 14.4 g/dL (12.0-16.0); Lymphocytes Absolute Auto 1700 /uL (1100-4500); Lymphocytes Percent Auto 14.2 % (25-40); Mean Corpuscular Hemoglobin 29.6 PG (26-34); Mean Corpuscular Volume 87.1 fL (80-100); Monocytes Absolute Auto 400 /uL (0-900); Monocytes Percent Auto 3.3 % (3-14); Neutrophils Absolute Auto 10000 /uL (1500-7000); Neutrophils Percent Auto 81.5 % (50-75); Platelet Count 477 X10^3/uL (150-400); Red Blood Cell Count 4.88 X10^6/uL (4.0-5.2); Red Cell Distribution Width 12.8 % (11.6-14.8); White Blood Cell Count 12.3 X10^3/uL (4.5-11.0)
[2020-10-26] MEDS: METOCLOPRAMIDE 10 MG/2 ML INJ IV (09:35)
[2020-10-26] MEDS: diphenhydrAMINE 50 MG/ML VIAL 25 MG IV (09:35)
[2020-10-26 09:43] LABS: Alanine Aminotransferase 17 IU/L (<35); Albumin 4.8 g/dL (3.5-5.0); Albumin Globulin Ratio 1.4 (1.0-2.8); Alkaline Phosphatase 80 U/L (38-126); Aspartate Aminotransferase 29 IU/L (14-36); BUN Creatinine Ratio 10.6 (6-22); Bilirubin Total 1.1 mg/dL (0.2-1.3); Blood Urea Nitrogen 9 mg/dL (7-17); Carbon Dioxide 19 mmol/L (22-32); Chloride 103 mmol/L (98-107); Estimated Glomerular Filt Rate > 60.0 mL/min (>60); Globulin 3.5 g/dL (1.7-4.1); Glucose 171 mg/dL (70-100); HEMOLYSIS < 15 (0-50); Potassium 3.8 mmol/L (3.4-5.1); Sodium 135 mmol/L (137-145); Total Protein 8.3 g/dL (6.3-8.2)
[2020-10-26] MEDS: LORazepam 2 MG/ML INJ 0.5 MG IV (10:57)
--- NOTE | 2020-10-26 11:48 | DI.US.S_ITS ---
PROCEDURE: US OB <= 14 WEEKS FETUS INDICATIONS: VOMITING OUTSIDE/PRIOR DATING DATA: Last menstrual period (LMP): 09/16/2020. LMP-based estimated date of delivery (FLORES): 06/23/2021. First dating scan (date and location): 10/26/2020. Estimated date of delivery (FLORES) from first dating scan: 06/18/2021. TECHNIQUE: Real-time scanning was performed of the fetus and maternal pelvic organs, with image documentation. Endovaginal scanning was also performed to better visualize the fetus and maternal ovaries. COMPARISON: None. FINDINGS: Embryo: A single live intrauterine is seen. The measured heart rate is approximately 100 beats per minute. The crown-rump length measures 0.6 cm, corresponding to an estimated gestational age of 6 weeks 3 days. It is too early for detailed anatomic assessment. By visual inspection, the amount of amniotic fluid is within normal limits. No significant findings of subchorionic/perigestational hemorrhage are seen. Measurement variability in dating: +/- 4 weeks by LMP, +/- 7 days by mean sac diameter (use before 6 weeks gestation if crown-rump length not able to be measured), +/- 5 days by crown-rump length (up to 8 weeks 6 days gestation), +/- 7 days by crown-rump length (up to 13 weeks 6 days gestation). Maternal organs: The right ovary is not seen. The left ovary demonstrates an apparent corpus luteum. Limited images through the kidneys demonstrate no hydronephrosis. IMPRESSION: A single live intrauterine is seen. No significant discrepancy is found between the estimated gestational age based on these images and the estimated gestational age based upon the given date of the last menstrual period. Dictated by: Yo Grace M.D. on 10/26/2020 at 12:01 Approved by: Yo Grace M.D. on 10/26/2020 at 12:02
== END 2020-10-26 13:41 | disposition home or self-care (01) ==
PROVIDERS: Emergency Provider Emergency Medicine
DX: O21.0 Mild hyperemesis gravidarum (principal)
CPT/HCPCS: 36415; 76801; 76817; 80053; 81003; 81025; 85025; 96361; 96374; 96375; 99281; 99284; J1200; J2060; J2405; J2765

== ENCOUNTER 2020-10-31 12:29 | Emergency (ER) | payer OTHER, MEDICAID, SELFPAY ==
[2020-10-31] VITALS (12 sets, daily range): BP systolic 86–158; BP diastolic 50–88; PULSE 58–70; RESP 16–18; TEMP 37.2; O2SAT 100; BMI 27.3
[2020-10-31] MEDS: SODIUM CHLORIDE 0.9% 1,000 ML 1000 ML IV (12:49)
--- NOTE | 2020-10-31 12:50 | ED_ITS ---
HPI - Nausea/Vomiting/Diarrhea General Chief complaint: Nausea/Vomiting/Diarrhea Stated complaint: 6wks preg, extreme morning sickness,vomiting Time Seen by Provider: 10/31/20 12:41 Source: patient Mode of arrival: Ambulatory Limitations: no limitations History of Present Illness HPI Narrative: Patient is a at approximately 6 weeks EGA who is here for the 2nd time in 1 week for nausea and vomiting. She states she is having some abdominal cramping with the vomiting. No vaginal bleeding. No diarrhea. No sick contacts. Was seen here in the emergency department a couple days ago. Had an ultrasound which showed a single live IUP. She does [facility]. She does have Zofran at home which she has been taking without any improvement. Related Data Home Medications Medication Instructions Recorded Confirmed [id number] fumarate-FA 1 cap PO QAM 03/09/18 12/24/18 [] Previous Rx's Medication Instructions Recorded fluconazole 150 mg tablet 150 mg PO ONCE #1 tab 12/24/18 doxylamine-pyridoxine (vit B6) 1 tab PO DAILY PRN #60 tab 10/26/20 ondansetron 4 mg PO Q8H PRN #10 tab 10/26/20 promethazine 25 mg VT Q4-6H PRN #12 ea 10/31/20 Allergies Allergy/AdvReac Type Severity Reaction Status Date / Time acetaminophen [From Vicodin] AdvReac Verified 10/31/20 12:40 hydrocodone [From Vicodin] AdvReac Verified 10/31/20 12:40 Review of Systems Constitutional Constitutional: Denies fever(s) Cardiovascular Cardiovascular: Denies chest pain and Denies dyspnea Respiratory Respiratory: Denies dyspnea Gastrointestinal Gastrointestinal: Reports abdominal pain, Denies change in bowel habits, Reports nausea and Reports vomiting Genitourinary Genitourinary: Denies dysuria Genitourinary: Denies dysuria and Denies vaginal discharge Musculoskeletal Musculoskeletal: Denies arthralgias and Denies myalgias Integumentary/Breasts Skin/Breast: Denies lesions and Denies rash Neurologic Neurologic: Denies behavioral changes Psychiatric Psychiatric: Denies behavioral changes Hematologic/Lymphatic On Anticoagulants: No Allergic/Immunologic Allergic/Immunologic: Denies urticaria Patient History Medical History (Updated 10/31/20 @ 16:01 by Tremayne Jorgensen DO) 2 Vaginal delivery Social History Smoking Status: Never smoker Smoking Status: Never smoker alcohol intake frequency: 0-2 drinks per day Substance Use Type: marijuana Exam Initial Vital Signs Initial Vital Signs: Vital Signs Temperature 99.0 F 10/31/20 12:32 Pulse Rate 70 10/31/20 12:32 Respiratory Rate 18 10/31/20 12:32 Blood Pressure 158/72 H 10/31/20 12:32 Pulse Oximetry 100 10/31/20 12:32 Const General: cooperative Limitations: mental status not altered HENMT Head: normal to inspection and normocephalic Resp Effort & Inspection: normal respiratory effort Auscultation: clear to auscultation bilaterally Cardio Rate: regular rate Rhythm: regular rhythm GI Inspection: non-distended Palpation: soft Skin Lesions: no lesions Rashes: no rashes Neuro General: patient alert and patient awake Cognition: normal cognition Speech: speech normal Extrem General: capillary refill normal Psych Appearance: grossly normal and well kempt Course Orders Ordered: ED Orders 10/31/20 12:55 ABO RH Type Stat HCG Quantitative /Beta subunit Stat Discontinued Medications Sodium Chloride (Normal Saline 0.9%) 1,000 mls @ 1,000 mls/hr IV BOLUS ONE Stop: 10/31/20 13:43 Last Infusion: 10/31/20 15:38 Dose: 0 mls/hr Documented by: VICTOR M Admin: 10/31/20 12:49 Dose: 1,000 mls/hr Documented by: VICTOR M Metoclopramide HCl (Metoclopramide 10 Mg/2 Ml Inj) 10 mg IV NOW ONE Stop: 10/31/20 14:11 Last Admin: 10/31/20 14:17 Dose: 10 mg Documented by: VICTOR M Ondansetron HCl (Ondansetron 4 Mg/2 Ml Inj) 4 mg IV NOW ONE Stop: 10/31/20 12:51 Last Admin: 10/31/20 13:05 Dose: 4 mg Documented by: VICTOR M Vital Signs Vital signs: Vital Signs - 8 hr 10/31/20 12:32 10/31/20 13:08 10/31/20 13:09 Temperature 99.0 F Pulse Rate 70 58 L 59 L Respiratory Rate 18 Blood Pressure 158/72 H 128/66 Pulse Oximetry 100 100 100 10/31/20 13:30 10/31/20 14:00 10/31/20 14:30 Temperature Pulse Rate 68 63 59 L Respiratory Rate 16 Blood Pressure 134/67 128/88 Pulse Oximetry 100 100 100 10/31/20 15:00 10/31/20 15:30 10/31/20 15:35 Temperature Pulse Rate 69 66 64 Respiratory Rate 16 Blood Pressure 91/57 L 86/51 L 100/56 L Pulse Oximetry 100 100 100 10/31/20 15:59 10/31/20 16:00 10/31/20 16:08 Temperature Pulse Rate 70 66 Respiratory Rate 16 Blood Pressure 111/50 L 111/50 L Pulse Oximetry 100 100 MDM - Nausea/Vomiting/Diarrhea Lab Data Attestation: I reviewed the patient's lab results. Labs: Lab Results 10/31/20 10/31/20 Range/Units 12:55 12:55 HCG, Quant [id number] mIU/mL Blood Type O Positive MDM Narrative Medical decision making narrative: Rh positive. No vaginal bleeding. Patient states she plans on electively terminating the in a couple weeks and she already has a scheduled appointment for this. Patient was given fluids and medications. She felt that the Reglan potentially help her symptoms the most. She has a benign exam. Will send home with a prescription for rectal Phenergan. This was electronically transmitted to the pharmacy of her choice. No indication to admit to the hospital today. I feel we can hold on labs. She was given return precautions and follow-up instructions. She expressed understanding and agreement. Discharge Plan Departure Patient Disposition: Home Clinical Impression: Nausea and vomiting during Instructions: Nausea of (Alternative Therapy) Activity Restrictions/Additional Instructions: Continue all of your medications as directed. A prescription for nausea medicine was transmitted to [facility]. Take it as needed as directed. Keep all of your scheduled medical appointments. Return to the emergency department for any new or worsening symptoms Prescriptions: New promethazine 25 mg suppository 25 mg VT Q4-6H PRN (Reason: nausea and vomiting) Qty: 12 RF: 0 No Action fluconazole 150 mg tablet 150 mg PO ONCE Qty: 1 RF: 0 [id number] fumarate-FA [] 28-800 mg-mcg Tablet 1 cap PO QAM RF: 0 doxylamine-pyridoxine (vit B6) 10-10 mg tablet,delayed release (DR/EC) 1 tab PO DAILY PRN (Reason: vomiting) Qty: 60 RF: 0 ondansetron 4 mg tablet,disintegrating 4 mg PO Q8H PRN (Reason: nausea and vomiting) Qty: 10 RF: 0
[2020-10-31] MEDS: ONDANSETRON 4 MG/2 ML INJ IV (13:05)
[2020-10-31 13:55] LABS: HCG Quantitative /Beta subunit 105230 mIU/mL
[2020-10-31] MEDS: METOCLOPRAMIDE 10 MG/2 ML INJ IV (14:17)
== END 2020-10-31 16:09 | disposition home or self-care (01) ==
PROVIDERS: Emergency Provider Emergency Medicine
DX: O21.9 Vomiting of pregnancy, unspecified (principal); Z3A.01 Less than 8 weeks gestation of pregnancy
CPT/HCPCS: 36415; 84702; 86900; 86901; 96361; 96374; 96375; 99281; 99284; J2405; J2765

== ENCOUNTER 2021-08-30 12:23 | Emergency (ER) | payer OTHER, MEDICAID, SELFPAY ==
[2021-08-30 12:42] VITALS: BP 123/87; PULSE 82; RESP 19; TEMP 37.1; O2SAT 99; BMI 28.3
[2021-08-30] MEDS: SODIUM CHLORIDE 0.9% 1,000 ML 1000 ML IV (14:37)
--- NOTE | 2021-08-30 15:01 | ED_ITS ---
HPI - General Adult General Chief complaint: OB/Uterine Contractions Stated complaint: Needs fluids per - 6 wks Time Seen by Provider: 08/30/21 14:00 Source: patient Mode of arrival: Family Vehicle Limitations: no limitations History of Present Illness HPI narrative: Patient is a 31-year-old female. She is a at approximately 6 weeks EGA. Was seen here in the emergency department at the beginning of the year with a prior that she eventually electively terminated for similar symptoms to include nausea and vomiting. She has yet to see OBGYN during this . She has continued to have nausea at home. Has Zofran at home. Has also tried Unisom and B6. Contacted the [employer] [facility] last evening and describing the symptoms and was told to come to the emergency department. Related Data Home Medications Medication Instructions Recorded Confirmed vit no.133-ferrous 1 cap PO QAM 03/09/18 12/24/18 fumarate 28 mg-folic acid 800 mcg tablet () Previous Rx's Medication Instructions Recorded doxylamine 10 mg-pyridoxine (vit 1 tab PO DAILY PRN #60 tab 10/26/20 B6) 10 mg tablet,delayed release promethazine 25 mg rectal 25 mg MD Q4-6H PRN #12 ea 10/31/20 suppository ondansetron 4 mg disintegrating 4 mg PO Q6H PRN #20 tab 08/28/21 tablet Allergies Allergy/AdvReac Type Severity Reaction Status Date / Time hydrocodone [From Vicodin] AdvReac Verified 10/31/20 12:40 Review of Systems Constitutional Constitutional: Denies fever(s) Gastrointestinal Gastrointestinal: Reports as per HPI and Reports system reviewed and no additional complaints, except as documented Genitourinary Genitourinary: Reports system reviewed and no additional complaints, except as documented and Reports as per HPI Musculoskeletal Musculoskeletal: Reports system reviewed and no additional complaints, except as documented Hematologic/Lymphatic On Anticoagulants: No Patient History Medical History 2 Vaginal delivery Social History Smoking Status: Never smoker Smoking Status: Never smoker alcohol intake frequency: 0-2 drinks per day Substance Use Type: marijuana Exam Initial Vital Signs Initial Vital Signs: Vital Signs Temperature 98.7 F 08/30/21 12:42 Pulse Rate 82 08/30/21 12:42 Respiratory Rate 19 08/30/21 12:42 Blood Pressure 123/87 08/30/21 12:42 Pulse Oximetry 99 08/30/21 12:42 HENMT Head: normal to inspection and atraumatic Resp Effort & Inspection: normal respiratory effort Cardio Rate: regular rate GI Inspection: normal to inspection Palpation: soft, No firm and No tender Skin General: no rashes or lesions noted Neuro General: patient alert, patient awake, patient oriented x3 and moves all extremities Extrem General: normal to inspection and capillary refill normal Psych Appearance: grossly normal and well kempt Course Orders Ordered: Discontinued Medications Sodium Chloride (Normal Saline 0.9%) 1,000 mls @ 1,000 mls/hr IV BOLUS ONE Stop: 08/30/21 15:27 Last Infusion: 08/30/21 15:54 Dose: 0 mls/hr Documented by: Admin: 08/30/21 14:37 Dose: 1,000 mls/hr Documented by: ODILIA Vital Signs Vital signs: Vital Signs - 8 hr 08/30/21 12:42 08/30/21 16:21 Temperature 98.7 F Pulse Rate 82 80 Respiratory Rate 19 18 Blood Pressure 123/87 Pulse Oximetry 99 100 Medical Decision Making MDM Narrative Medical decision making narrative: Patient denies cramping. Denies vaginal bleeding. Stated that she did feel better after the IV fluids. I feel that we can hold on ultrasound for now. She does have nausea medication at home already prescribed to her. Patient states she feels well enough to go home. Was given return precautions and follow-up instructions. She expressed understanding and agreement. Discharge Plan Departure Patient Disposition: Home Clinical Impression: Nausea and vomiting during Instructions: DI for -- Discomforts and Remedies Activity Restrictions/Additional Instructions: I do recommend that you drink small amounts of fluid over longer periods of time. Keep all of your scheduled medical appointments. Return to the emergency department for any new or worsening symptoms Prescriptions: No Action ondansetron 4 mg tablet,disintegrating 4 mg PO Q6H PRN (Reason: nausea and vomiting) Qty: 20 2RF promethazine 25 mg suppository 25 mg MD Q4-6H PRN (Reason: nausea and vomiting) Qty: 12 0RF [id number] fumarate-FA [] 28-800 mg-mcg Tablet 1 cap PO QAM 0RF doxylamine-pyridoxine (vit B6) 10-10 mg tablet,delayed release (DR/EC) 1 tab PO DAILY PRN (Reason: vomiting) Qty: 60 0RF
[2021-08-30 16:21] VITALS: PULSE 80; RESP 18; O2SAT 100
== END 2021-08-30 16:22 | disposition home or self-care (01) ==
PROVIDERS: Emergency Provider Emergency Medicine; Referring Provider Obstetrics & Gynecology
DX: O21.9 Vomiting of pregnancy, unspecified (principal); Z3A.01 Less than 8 weeks gestation of pregnancy
CPT/HCPCS: 96360; 99283

== ENCOUNTER 2021-09-11 18:15 | Emergency (ER) | payer OTHER, MEDICAID, SELFPAY ==
[2021-09-11 18:28] VITALS: BP 131/86; PULSE 92; RESP 20; TEMP 37.4; O2SAT 96; BMI 27.5
--- NOTE | 2021-09-11 19:42 | ED_ITS ---
HPI - Nausea/Vomiting/Diarrhea General Chief complaint: OB/Uterine Contractions Stated complaint: 7 wks Preg/Can't Keep Anything Down/Dehydrated Time Seen by Provider: 09/11/21 19:42 Source: patient Mode of arrival: Family Vehicle Limitations: no limitations History of Present Illness HPI Narrative: 31F former smoker without chronic medical problems is a at 7 weeks with persistent nausea and vomiting over the course of the day. She has become a bit fatigued and lightheaded. She denies any fever or chills. She has no vaginal bleeding, discharge or leakage of fluid. She denies any focal neurologic find ings. Related Data Home Medications Medication Instructions Recorded Confirmed vit no.133-ferrous 1 cap PO QAM 03/09/18 12/24/18 fumarate 28 mg-folic acid 800 mcg tablet () Previous Rx's Medication Instructions Recorded doxylamine 10 mg-pyridoxine (vit 1 tab PO DAILY PRN #60 tab 10/26/20 B6) 10 mg tablet,delayed release promethazine 25 mg rectal 25 mg VA Q4-6H PRN #12 ea 10/31/20 suppository ondansetron 4 mg disintegrating 4 mg PO Q6H PRN #20 tab 08/28/21 tablet Allergies Allergy/AdvReac Type Severity Reaction Status Date / Time hydrocodone [From Vicodin] AdvReac Vomiting Verified 09/11/21 18:33 Review of Systems Review of Systems Narrative: GENERAL: Denies chills, fatigue, malaise, fever, sweats. HEENT: Denies sinus pain, ear pain, sore throat, difficulty swallowing, dizziness. RESPIRATORY: Denies dyspnea, cough, wheezing, hemoptysis, sputum. CARDIOVASCULAR: Denies chest pain, palpitations, orthopnea, edema, GASTROINTESTINAL: See HPI : Denies dysuria, frequency, incontinence, hematuria, urinary retention. MUSCULOSKELETAL: denies weakness, joint pain, or bony pain SKIN: Denies rash, skin lesions, or other NEUROLOGIC: Denies weakness, headache, numbness, change in speech, confusion, seizures, incoordination. PSYCHIATRIC: No concerning psychosocial issues. 12 point review of systems is negative except for those stated above Patient History Medical History 2 Vaginal delivery Social History (Reviewed 09/11/21 @ 19:55 by DIANNE Silva Smoking Status: Former smoker Smoking Status: Former smoker alcohol intake frequency: holidays/special occasions only Substance Use Type: marijuana Exam Narrative Exam Narrative: GENERAL: [31] year old patient appears stated age. Well-developed patient, in mild distress. HEAD: Atraumatic. Normocephalic. EYES: Pupils equal round and reactive. Extraocular motions intact. No scleral icterus. No injection or drainage. ENT: Nose without bleeding, purulent drainage. Throat without erythema, tonsillar hypertrophy or exudate. Airway patent. NECK: Trachea midline. Non tender CARDIOVASCULAR: Regular rate and rhythm without murmurs, gallops, or rubs. RESPIRATORY: Clear to auscultation. Breath sounds equal bilaterally. No wheezes, rales, or rhonchi. GASTROINTESTINAL: Abdomen soft, non-tender, nondistended. EXTREMITIES: No edema or joint tenderness. BACK: Nontender without deformity or crepitance. No flank tenderness. NEURO: AOx3. SKIN: No rash or erythema of visible areas Initial Vital Signs Initial Vital Signs: Vital Signs Temperature 99.4 F 09/11/21 18:28 Pulse Rate 92 H 09/11/21 18:28 Respiratory Rate 20 09/11/21 18:28 Blood Pressure 131/86 09/11/21 18:28 Pulse Oximetry 96 09/11/21 18:28 Course Orders Ordered: Discontinued Medications Sodium Chloride (Normal Saline 0.9%) 1,000 mls @ 1,000 mls/hr IV BOLUS ONE Stop: 09/11/21 20:41 Last Infusion: 09/11/21 21:04 Dose: 0 mls/hr Documented by: Admin: 09/11/21 20:01 Dose: 1,000 mls/hr Documented by: ESTEBAN Sodium Chloride (Normal Saline 0.9%) 1,000 mls @ 1,000 mls/hr IV BOLUS ONE Stop: 09/11/21 21:48 Last Infusion: 09/11/21 21:42 Dose: 0 mls/hr Documented by: Admin: 09/11/21 20:59 Dose: 1,000 mls/hr Documented by: ESTEBAN Metoclopramide HCl (Metoclopramide 10 Mg/2 Ml Inj) 10 mg IV NOW ONE Stop: 09/11/21 20:50 Last Admin: 09/11/21 20:59 Dose: 10 mg Documented by: ESTEBAN Ondansetron HCl (Ondansetron 4 Mg/2 Ml Inj) 4 mg IV NOW ONE Stop: 09/11/21 20:03 Last Admin: 09/11/21 20:07 Dose: 4 mg Documented by: ESTEBAN Vital Signs Vital signs: Vital Signs - 8 hr 09/11/21 18:28 Temperature 99.4 F Pulse Rate 92 H Respiratory Rate 20 Blood Pressure 131/86 Pulse Oximetry 96 MDM - Nausea/Vomiting/Diarrhea Lab Data Result diagrams: 09/11/21 20:00 09/11/21 20:00 Labs: Lab Results 09/11/21 09/11/21 09/11/21 Range/Units 20:00 20:00 20:40 WBC 16.4 H (4.5-11.0) X10^3/uL RBC 4.56 (4.0-5.2) X10^6/uL Hgb 13.5 (12.0-16.0) g/dL Hct 39.8 (36-46) % MCV 87.4 (80-100) fL MCH 29.6 (26-34) PG MCHC 33.9 (30-36) % RDW 13.1 (11.6-14.8) % Plt Count 396 (150-400) X10^3/uL Neut % (Auto) 82.1 H (50-75) % Lymph % (Auto) 12.6 L (25-40) % [place] % (Auto) 4.4 (3-14) % Eos % (Auto) 0.4 L (2-4) % Baso % (Auto) 0.5 (0-2) % Neut # (Auto) 75642 H (3420-8849) /uL Lymph # (Auto) 2100 (2083-7122) /uL [place] # (Auto) 700 (0-900) /uL Eos # (Auto) 100 (0-450) /uL Baso # (Auto) 100 (0-100) /uL Sodium 134 L (137-145) mmol/L Potassium 3.6 (3.4-5.1) mmol/L Chloride 98 (98-107) mmol/L Carbon Dioxide 28 (22-32) mmol/L BUN 5 L (7-17) mg/dL Creatinine 0.61 (0.52-1.04) mg/dL Estimated GFR > 60.0 (>60) mL/min BUN/Creatinine Ratio 8.2 (6-22) Glucose 102 H (70-100) mg/dL Calcium 9.7 (8.4-10.2) mg/dL Total Bilirubin 0.9 (0.2-1.3) mg/dL AST 25 (14-36) IU/L ALT 15 (<35) IU/L Alkaline Phosphatase 52 (38-126) U/L Total Protein 7.4 (6.3-8.2) g/dL Albumin 4.5 (3.5-5.0) g/dL Globulin 2.9 (1.7-4.1) g/dL Albumin/Globulin Ratio 1.6 (1.0-2.8) Urine Color Yellow Urine Appearance Clear Urine pH 8.0 (4.5-8.0) Ur Specific [place] 1.020 (1.000-1.035) Urine Protein Trace H (Negative) Urine Glucose (UA) Negative (Negative) g/dL Urine Ketones 1+ H (NEGATIVE) Urine Occult Blood Negative (Negative) Urine Nitrate Negative (Negative) Urine Bilirubin Negative (NEGATIVE) Urine Urobilinogen 0.2 (0.2) E.U./dL Ur Leukocyte Esterase Trace H (NEGATIVE) Urine RBC None seen (0-5/HPF) Urine WBC None seen (0-5/HPF) Amorphous Sediment 2+ Urine Bacteria None seen (None) Ur Culture Indicated? Cult not indicated Ketones 0.28 H (<0.27) mmol/L MDM Narrative Medical decision making narrative: Patient feels much better after above-stated therapies. She is tolerating orals. She is able to ambulate without difficulty. Return precautions discussed and questions answered to her apparent satisfaction Discharge Plan Departure Patient Disposition: Home Clinical Impression: Hyperemesis Instructions: DI for Hyperemesis Gravidarum Activity Restrictions/Additional Instructions: *You have been diagnosed with [nausea and vomiting associated with ] *What to do: *Please continue to take your regular medications as directed. [ ] New medication prescriptions sent to your pharmacy: [ ] [ ] New medication written as a paper prescription [x ] No new medications given *Please follow up with your primary care provider in 2-3 days, call for an appointment. Let them know you were seen in the Emergency Department and that we ask that you be seen in follow up. We will electronically transmit a record of today's note if your PCP is in our system *If you do not have a primary care provider please contact the [facility] Resource line at [phone]. They will ask some questions about your medical history and help get you set up with a doctor in the community. *Return to Emergency Department if you should have any new, worsening or concerning symptoms, such as [fever greater than 101 F, shaking chills, worsening pain, persistent vomiting or other bothersome symptoms] Prescriptions: No Action ondansetron 4 mg tablet,disintegrating 4 mg PO Q6H PRN (Reason: nausea and vomiting) Qty: 20 2RF promethazine 25 mg suppository 25 mg VA Q4-6H PRN (Reason: nausea and vomiting) Qty: 12 0RF [id number] fumarate-FA [] 28-800 mg-mcg Tablet 1 cap PO QAM 0RF doxylamine-pyridoxine (vit B6) 10-10 mg tablet,delayed release (DR/EC) 1 tab PO DAILY PRN (Reason: vomiting) Qty: 60 0RF Referrals: Connie Ventura MD [Primary Care Provider] -
[2021-09-11] MEDS: SODIUM CHLORIDE 0.9% 1,000 ML 1000 ML IV ×2 (20:01→20:59)
[2021-09-11] MEDS: ONDANSETRON 4 MG/2 ML INJ IV (20:07)
[2021-09-11 20:16] LABS: Add Manual Diff / Slide Review NO; Basophils Absolute Auto 100 /uL (0-100); Basophils Percent Auto 0.5 % (0-2); Eosinophils Absolute Auto 100 /uL (0-450); Eosinophils Percent Auto 0.4 % (2-4); Hematocrit 39.8 % (36-46); Hemoglobin 13.5 g/dL (12.0-16.0); Lymphocytes Absolute Auto 2100 /uL (1100-4500); Lymphocytes Percent Auto 12.6 % (25-40); Mean Corpuscular HGB Conc 33.9 % (30-36); Mean Corpuscular Hemoglobin 29.6 PG (26-34); Mean Corpuscular Volume 87.4 fL (80-100); Monocytes Absolute Auto 700 /uL (0-900); Monocytes Percent Auto 4.4 % (3-14); Neutrophils Absolute Auto 13500 /uL (1500-7000); Neutrophils Percent Auto 82.1 % (50-75); Platelet Count 396 X10^3/uL (150-400); Red Blood Cell Count 4.56 X10^6/uL (4.0-5.2); Red Cell Distribution Width 13.1 % (11.6-14.8); White Blood Cell Count 16.4 X10^3/uL (4.5-11.0)
[2021-09-11 20:28] LABS: Alanine Aminotransferase 15 IU/L (<35); Albumin 4.5 g/dL (3.5-5.0); Albumin Globulin Ratio 1.6 (1.0-2.8); Alkaline Phosphatase 52 U/L (38-126); Aspartate Aminotransferase 25 IU/L (14-36); BUN Creatinine Ratio 8.2 (6-22); Bilirubin Total 0.9 mg/dL (0.2-1.3); Blood Urea Nitrogen 5 mg/dL (7-17); Calcium 9.7 mg/dL (8.4-10.2); Carbon Dioxide 28 mmol/L (22-32); Chloride 98 mmol/L (98-107); Estimated Glomerular Filt Rate > 60.0 mL/min (>60); Globulin 2.9 g/dL (1.7-4.1); HEMOLYSIS < 15 (0-50); Potassium 3.6 mmol/L (3.4-5.1); Sodium 134 mmol/L (137-145); Total Protein 7.4 g/dL (6.3-8.2)
[2021-09-11 20:31] LABS: Ketones (Beta-Hydroxybutyrate) 0.28 mmol/L (<0.27)
[2021-09-11 20:43] LABS: Appearance Urine UA CLEAR; Bilirubin Urine UA NEGATIVE (NEGATIVE); Color Urine UA YELLOW; Glucose Urine UA NEGATIVE (Negative); Ketones Urine UA 1+ (NEGATIVE); Leukocyte Esterase Urine UA TRACE (NEGATIVE); Nitrite Urine UA NEGATIVE (Negative); Occult Blood Urine UA NEGATIVE (Negative); Protein Urine UA TRACE (Negative); Urobilinogen Urine UA 0.2 E.U./dL (0.2)
[2021-09-11 20:45] LABS: Glucose 102 mg/dL (70-100)
[2021-09-11 20:53] LABS: Amorphous Sediment Urine 2+; Bacteria Urine None Seen; Culture Indicated Urine Cult Not Indicated; RBC Urine None Seen (0-5/HPF); WBC Urine None Seen (0-5/HPF)
[2021-09-11] MEDS: METOCLOPRAMIDE 10 MG/2 ML INJ IV (20:59)
[2021-09-11 22:16] VITALS: BP 150/99; PULSE 76; RESP 18; O2SAT 100
== END 2021-09-11 22:17 | disposition home or self-care (01) ==
PROVIDERS: Emergency Provider Emergency Medicine; PCP Obstetrics & Gynecology
DX: O21.0 Mild hyperemesis gravidarum (principal); Z3A.01 Less than 8 weeks gestation of pregnancy
CPT/HCPCS: 36415; 80053; 81001; 82009; 85025; 96361; 96374; 96375; 99284; J2405; J2765

== ENCOUNTER → 2021-09-14 09:35 | Outpatient (CLI) | payer OTHER, MEDICAID, SELFPAY ==
--- NOTE | 2021-09-14 09:36 | DI.RAD.S_ITS ---
PROCEDURE: FL GUIDED PICC PLACEMENT INDICATIONS: PICC line placement COMPARISON: None. FINDINGS: PICC was placed by the intravenous therapy team from the left side. Fluoroscopic spot film demonstrates the tip of PICC projecting to the area of distal SVC IMPRESSION: Tip of PICC projects to the area of distal SVC. Dictated by: Elli Engle MD, PhD on 09/14/2021 at 10:24 Approved by: Elli Engle MD, PhD on 09/14/2021 at 10:25
== END ==
PROVIDERS: Referring Provider Obstetrics & Gynecology; Visit Provider Obstetrics & Gynecology
DX: Z45.2 Encounter for adjustment and management of vascular access device (principal); O21.1 Hyperemesis gravidarum with metabolic disturbance; O99.280 Endocrine, nutritional and metabolic diseases complicating pregnancy, unspecified trimester; E86.0 Dehydration
CPT/HCPCS: 36573; 96360; 96361

== ENCOUNTER 2021-10-17 20:59 | Emergency (ER) | payer OTHER, MEDICAID, SELFPAY ==
[2021-10-17 21:09] VITALS: BP 180/86; PULSE 80; RESP 17; TEMP 36.8; O2SAT 97; BMI 27.8
[2021-10-17] MEDS: SODIUM CHLORIDE 0.9% 1,000 ML 1000 ML IV ×2 (21:27→22:40)
--- NOTE | 2021-10-17 21:27 | ED.NAVMDI ---
HPI - Nausea/Vomiting/Diarrhea General Chief complaint: Nausea/Vomiting/Diarrhea Stated complaint: Constipation/hyperemisis x2 days Time Seen by Provider: 10/17/21 21:14 Source: patient Mode of arrival: Ambulatory History of Present Illness HPI Narrative: Patient is a 31-year-old female. Is a at approximately 12 weeks EGA. She has had issues with hyperemesis in this . Had standing orders for the infusion clinic but over the past couple weeks has not needed to use them. Apparently over the past couple days the nausea and vomiting has returned. She has Zofran at home which she has taken without any improvement. At the end of last week she did go to the infusion clinic. Received medications and also fluids. Discharged home. She has not had a bowel movement for the past couple days. Also states that she has not had much to eat. This time as well. Has an appointment with her OB provider scheduled for the beginning of next week. Related Data Home Medications Medication Instructions Recorded Confirmed vit no.133-ferrous 1 cap PO QAM 03/09/18 09/28/21 fumarate 28 mg-folic acid 800 mcg tablet () doxylamine succinate 25 mg tablet 25 mg PO BEDTIME PRN 09/24/21 09/28/21 (Unisom (doxylamine)) pyridoxine (vitamin B6) 50 mg 50 mg PO ONCE 09/24/21 09/28/21 tablet ondansetron 4 mg disintegrating mg 10/17/21 tablet Previous Rx's Medication Instructions Recorded ondansetron 4 mg disintegrating 4 mg PO Q6H PRN #20 tab 09/28/21 tablet metoclopramide HCl 10 mg tablet 10 mg PO Q6H PRN #14 tab 10/17/21 (Reglan) Allergies Allergy/AdvReac Type Severity Reaction Status Date / Time hydrocodone [From Vicodin] AdvReac Vomiting Verified 09/28/21 15:25 Review of Systems Constitutional Constitutional: Denies fever(s) Cardiovascular Cardiovascular: Reports system reviewed and no additional complaints, except as documented Respiratory Respiratory: Reports system reviewed and no additional complaints, except as documented Gastrointestinal Gastrointestinal: Reports as per HPI and Reports system reviewed and no additional complaints, except as documented Genitourinary Genitourinary: Reports system reviewed and no additional complaints, except as documented and Reports as per HPI Integumentary/Breasts Skin/Breast: Reports system reviewed and no additional complaints, except as documented Hematologic/Lymphatic On Anticoagulants: No Patient History Medical History Chronic eczema (~2014) 2 Hyperemesis affecting , antepartum (~2020) Vaginal delivery (~2010) Surgical History (Updated 09/24/21 @ 14:01 by Belén Jaime RN) History of placement of ear tubes (~2006) S/P tonsillectomy and adenoidectomy (~2006) [place] teeth extracted (~2019) Family History (Updated 09/24/21 @ 14:08 by Belén Jaime RN) Mother No problems noted. Father Family history unknown Grandmother Multiple sclerosis Grandfather S/P CABG x 3 Hyperlipidemia Alcoholic Grandmother Cancer Grandfather No problems noted. Social History marital status: unmarried,living together number of children: 2 household members: significant other, family (FOBs Mom. ) and children (Her son and FOB's son: half custody.) lives independently: Yes caregiver/support person: No pets and animals: Yes (2 dogs, 3 sheep, 50 pigs, chicken, ducks, geese: aware. ) education level: high school occupational status: unemployed (Left job in Jun due to vaccine mandate. 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 special mallory needs: No seatbelt use: always do you feel safe at home: Yes Smoking Status: Never smoker second hand exposure: No alcohol intake: former (Pre-: a couple times a month. ) substance use type: marijuana (Quit with . Previously was a daily smoker. ) during the past year weight has: decreased > 10 lbs (lost 12 lbs r/t hyperemesis.) well-balanced diet: rarely or never (Week 4 until present: many days she can't keep anything down. Yesterday was first time she ate in a while.) daily servings fruits/ve-1 (1-2) caffeine: No Type(s) of exercise: walking (Normally walks regularly, but last 6 weeks has felt too poorly. ) frequency: 3-4 times per week duration: 45-60 minutes/day Smoking Status: Never smoker alcohol intake frequency: other Substance Use Type: does not use Exam Initial Vital Signs Initial Vital Signs: Vital Signs Temperature 98.3 F 10/17/21 21:09 Pulse Rate 80 10/17/21 21:09 Respiratory Rate 17 10/17/21 21:09 Blood Pressure 180/86 H 10/17/21 21:09 Pulse Oximetry 97 10/17/21 21:09 HENMT Head: normal to inspection and normocephalic Resp Effort & Inspection: normal respiratory effort Cardio Rate: regular rate GI Inspection: normal to inspection Palpation: soft, No firm and No guarding Skin General: no rashes or lesions noted Neuro General: patient alert, patient awake and moves all extremities Extrem General: normal to inspection Psych Appearance: grossly normal and well kempt Course Orders Ordered: Discontinued Medications Sodium Chloride (Normal Saline 0.9%) 1,000 mls @ 1,000 mls/hr IV BOLUS ONE Stop: 10/17/21 22:14 Last Infusion: 10/17/21 22:18 Dose: 0 mls/hr Documented by: Admin: 10/17/21 21:27 Dose: 1,000 mls/hr Documented by: MARYSOL Sodium Chloride (Normal Saline 0.9%) 1,000 mls @ 1,000 mls/hr IV BOLUS ONE Stop: 10/17/21 23:29 Last Admin: 10/17/21 22:40 Dose: 1,000 mls/hr Documented by: MARYSOL Metoclopramide HCl (Metoclopramide 10 Mg/2 Ml Inj) 10 mg IV NOW ONE Stop: 10/17/21 22:31 Last Admin: 10/17/21 22:40 Dose: 10 mg Documented by: MARYSOL Vital Signs Vital signs: Vital Signs - 8 hr 10/17/21 21:09 10/17/21 22:18 10/17/21 23:22 Temperature 98.3 F Pulse Rate 80 78 77 Respiratory Rate 17 16 16 Blood Pressure 180/86 H 158/94 H 134/63 Pulse Oximetry 97 100 99 10/17/21 23:47 Temperature Pulse Rate 88 Respiratory Rate 14 Blood Pressure 112/58 L Pulse Oximetry 99 MDM - Nausea/Vomiting/Diarrhea MDM Narrative Medical decision making narrative: Patient's vital signs unremarkable. See 2 L of fluid. Received Reglan which seemed to improve his symptoms somewhat. She has a benign exam. I have low suspicion for bowel obstruction. I feel that the risks of a CT scan/x-ray of her abdomen far away benefits currently. Did discuss this with her. Will give a prescription for Reglan that she can peanut picker in the pharmacy tomorrow. Will have her keep her appointment with her primary doctor for next week. She was given return precautions and follow-up instructions. She expressed understanding and agreement. Discharge Plan Departure Patient Disposition: Home Clinical Impression: Hyperemesis gravidarum, Instructions: DI for Hyperemesis Gravidarum Activity Restrictions/Additional Instructions: Keep all of your scheduled medical appointments. Be sure to increase your fluid intake can use the nausea medication as needed. Return to the emergency department for any new symptoms. Prescriptions: New metoclopramide HCl [Reglan] 10 mg tablet 10 mg PO Q6H PRN (Reason: nausea and vomiting) Qty: 14 0RF No Action ondansetron 4 mg tablet,disintegrating 4 mg PO Q6H PRN (Reason: nausea and vomiting) Qty: 20 2RF Unisom (doxylamine) 25 mg tablet 25 mg PO BEDTIME PRN0RF pyridoxine (vitamin B6) 50 mg tablet 50 mg PO ONCE 0RF [id number] fumarate-FA [] 28-800 mg-mcg Tablet 1 cap PO QAM 0RF ondansetron 4 mg tablet,disintegrating 0RF Label Comments: DISSOLVE ONE TABLET IN MOUTH EVERY SIX HOURS NEEDED FOR NAUSEA AND VOMITING
[2021-10-17 22:18] VITALS: BP 158/94; PULSE 78; RESP 16; O2SAT 100
--- NOTE | 2021-10-17 22:19 | PC.NURSE ---
pt states she is feeling a little better but does continue to be nauseated
--- NOTE | 2021-10-17 22:20 | PC.NURSE ---
pt is 12 weeks and has had hyperemesis she has been taking the medication rx for her n/v without relief.
[2021-10-17] MEDS: METOCLOPRAMIDE 10 MG/2 ML INJ IV (22:40)
[2021-10-17 23:22] VITALS: BP 134/63; PULSE 77; RESP 16; O2SAT 99
--- NOTE | 2021-10-17 23:23 | PC.NURSE ---
pt resting on right side with eyes closed resp even and unlabored
[2021-10-17 23:47] VITALS: BP 112/58; PULSE 88; RESP 14; O2SAT 99
--- NOTE | 2021-10-30 15:59 | PC.NURSE ---
late entry- per RN IV fluids DC'd when IV catheter DC'd at discharge at 2330
--- NOTE | 2021-11-08 23:53 | PC.NURSE ---
late entry 1000 ml NS bolus completed at 2340 on 10/17/21
== END 2021-10-18 | disposition home or self-care (01) ==
PROVIDERS: Emergency Provider Emergency Medicine
DX: O21.0 Mild hyperemesis gravidarum (principal); Z3A.12 12 weeks gestation of pregnancy
CPT/HCPCS: 36415; 96361; 96374; 99284; J2765

== ENCOUNTER 2021-11-19 09:36 | Observation (INO) | payer OTHER, MEDICAID, SELFPAY ==
[2021-11-19] VITALS (25 sets, daily range): BP systolic 130–177; BP diastolic 69–95; PULSE 48–77; RESP 15–20; TEMP 36.1–37.3; O2SAT 98–100; BMI 30.2
--- NOTE | 2021-11-19 09:43 | ED.NAVMDI ---
HPI - Nausea/Vomiting/Diarrhea General Chief complaint: Abdominal Pain Stated complaint: hyperemisis, puking blood, constant vomit/diarrhea Time Seen by Provider: 11/19/21 09:39 History of Present Illness HPI Narrative: 31F nonsmoker with history of hyperemesis gravidarum is a at 17 weeks and presents with about 24 hours of persistent nausea and vomiting with mild abdominal cramping. She has become a bit dizzy and fatigued. She has prescriptions for Zofran and Reglan but did not take them because they make her constipated. She denies any fever or chills. She denies chest pain or shortness of breath. She denies any dysuria, frequency or urgency. She has no vaginal bleeding, discharge or leakage of fluid. Related Data Home Medications Medication Instructions Recorded Confirmed vit no.133-ferrous 1 cap PO QAM 03/09/18 11/19/21 fumarate 28 mg-folic acid 800 mcg tablet () pyridoxine (vitamin B6) 50 mg 50 mg PO ONCE 09/24/21 11/19/21 tablet Previous Rx's Medication Instructions Recorded metoclopramide HCl 10 mg 10 mg PO Q6H PRN #20 tab 10/21/21 disintegrating tablet Allergies Allergy/AdvReac Type Severity Reaction Status Date / Time hydrocodone [From Vicodin] AdvReac Vomiting Verified 11/19/21 09:47 Review of Systems Review of Systems Narrative: GENERAL: Denies chills, fatigue, malaise, fever, sweats. HEENT: Denies sinus pain, ear pain, sore throat, difficulty swallowing, dizziness. RESPIRATORY: See HPI CARDIOVASCULAR: Denies chest pain, palpitations, orthopnea, edema, GASTROINTESTINAL: See HPI : Denies dysuria, frequency, incontinence, hematuria, urinary retention. MUSCULOSKELETAL: denies weakness, joint pain, or bony pain SKIN: Denies rash, skin lesions, or other NEUROLOGIC: Denies weakness, headache, numbness, change in speech, confusion, seizures, incoordination. PSYCHIATRIC: No concerning psychosocial issues. 12 point review of systems is negative except for those stated above Patient History Medical History Chronic eczema (~2014) 2 Hyperemesis affecting , antepartum (~2020) Vaginal delivery (~2010) Surgical History History of placement of ear tubes (~2006) S/P tonsillectomy and adenoidectomy (~2006) [place] teeth extracted (~2019) Family History Mother No problems noted. Father Family history unknown Grandmother Multiple sclerosis Grandfather S/P CABG x 3 Hyperlipidemia Alcoholic Grandmother Cancer Grandfather No problems noted. Social History marital status: unmarried,living together number of children: 2 household members: significant other, family and children lives independently: Yes caregiver/support person: No pets and animals: Yes (2 dogs, 3 sheep, 50 pigs, chicken, ducks, geese: aware. ) education level: high school occupational status: unemployed (Left job in Jun due to vaccine mandate. 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 special mallory needs: No seatbelt use: always do you feel safe at home: Yes Smoking Status: Never smoker second hand exposure: No alcohol intake: former substance use type: marijuana (Quit with . Previously was a daily smoker. ) during the past year weight has: decreased > 10 lbs (lost 12 lbs r/t hyperemesis.) well-balanced diet: rarely or never (Week 4 until present: many days she can't keep anything down. Yesterday was first time she ate in a while.) daily servings fruits/ve-1 (1-2) caffeine: No Type(s) of exercise: walking (Normally walks regularly, but last 6 weeks has felt too poorly. ) frequency: 3-4 times per week duration: 45-60 minutes/day Smoking Status: Never smoker alcohol intake frequency: other Substance Use Type: does not use Exam Narrative Exam Narrative: GENERAL: [31 year old patient appears stated age. Well-developed patient, in mild distress. Tearful, holding an emesis bag HEAD: Atraumatic. Normocephalic. EYES: Pupils equal round and reactive. Extraocular motions intact. No scleral icterus. No injection or drainage. ENT: Nose without bleeding, purulent drainage. Throat without erythema, tonsillar hypertrophy or exudate. Airway patent. NECK: Trachea midline. Non tender CARDIOVASCULAR: Regular rate and rhythm without murmurs, gallops, or rubs. RESPIRATORY: Clear to auscultation. Breath sounds equal bilaterally. No wheezes, rales, or rhonchi. GASTROINTESTINAL: Abdomen soft, non-tender, nondistended. EXTREMITIES: No edema or joint tenderness. BACK: Nontender without deformity or crepitance. No flank tenderness. NEURO: AOx3. SKIN: No rash or erythema of visible areas Initial Vital Signs Initial Vital Signs: Vital Signs Temperature 96.9 F L 11/19/21 09:40 Pulse Rate 67 11/19/21 09:40 Respiratory Rate 15 11/19/21 09:40 Blood Pressure 177/86 H 11/19/21 09:40 Pulse Oximetry 99 11/19/21 09:40 Course Course Course Narrative: Patient has had multiple rounds of antiemetics and is still unable to stop dry heaving, oral challenge unable to even be attempted. Patient will need to be hospitalized for the treatment of her hyperemesis, Dr. Mcclure will see the patient at the bedside Orders Ordered: ED Orders 11/19/21 10:20 ALT [Alanine Aminotransferase] Stat Complete Blood Count AUTO DIFF Stat Comprehensive Metabolic Panel Stat Ketones (Beta-Hydroxybutyrate) Stat LDH [Lactate Dehydrogenase] Stat 11/19/21 10:45 Urinalysis and Microscopic Stat 11/19/21 11:30 COVID19 -Nasal swab/Pre-Proc Stat Dextrose/Lactated Ringer's (Dextrose 5%-Lactated Ringers) 1,000 mls @ 100 mls/hr IV CONT [facility] Last Admin: 11/19/21 14:32 Dose: 100 mls/hr Documented by: CMCFARL Methylprednisolone (Methylprednisolone 125 Mg/2 Ml Vial) 16 mg IV Q8HR [facility] Last Admin: 11/19/21 14:33 Dose: 16 mg Documented by: SIMBAFARL Ondansetron HCl (Ondansetron 4 Mg/2 Ml Inj) 4 mg IV Q8HR PRN PRN Reason: Nausea And Vomiting Thiamine HCl (Thiamine 200 Mg/2 Ml Vial) 100 mg IV DAILY [facility] Last Admin: 11/19/21 14:33 Dose: 100 mg Documented by: BEBO Discontinued Medications Hydralazine HCl (Hydralazine 20 Mg/Ml Vial) 5 mg IV NOW ONE Stop: 11/19/21 11:05 Last Admin: 11/19/21 11:09 Dose: 5 mg Documented by: DELROY Sodium Chloride (Normal Saline 0.9%) 1,000 mls @ 1,000 mls/hr IV BOLUS ONE Stop: 11/19/21 10:41 Last Infusion: 11/19/21 12:02 Dose: 0 mls/hr Documented by: Admin: 11/19/21 10:14 Dose: 1,000 mls/hr Documented by: DANIKA Labetalol HCl (Labetalol 20 Mg/4 Ml Syringe) 20 mg IV NOW ONE Stop: 11/19/21 10:55 Last Admin: 11/19/21 12:39 Dose: Not Given Documented by: DANIKA Metoclopramide HCl (Metoclopramide 10 Mg/2 Ml Inj) 10 mg IV NOW ONE Stop: 11/19/21 11:19 Last Admin: 11/19/21 11:20 Dose: 10 mg Documented by: EMILY Ondansetron HCl (Ondansetron 4 Mg/2 Ml Inj) 4 mg IV NOW ONE Stop: 11/19/21 09:43 Last Admin: 11/19/21 10:15 Dose: 4 mg Documented by: DANIKA Ondansetron HCl (Ondansetron 4 Mg/2 Ml Inj) 4 mg IV NOW ONE Stop: 11/19/21 12:29 Last Admin: 11/19/21 12:34 Dose: 4 mg Documented by: DELROY Pantoprazole Sodium (Pantoprazole 40 Mg Vial) 40 mg IV NOW ONE Stop: 11/19/21 09:43 Last Admin: 11/19/21 10:14 Dose: 40 mg Documented by: DANIKA Prochlorperazine (Prochlorperazine 10 Mg/2 Ml Vial) 10 mg IV NOW ONE Stop: 11/19/21 13:17 Last Admin: 11/19/21 13:42 Dose: 10 mg Documented by: CHELY Reevaluation(s) Reevaluation #1: Elevated blood pressure even once vomiting is under control. She has had some episodes her heart rate dipping but persists in the 60s, labetalol considered but thought to be less appropriate then hydralazine given the episodes of bradycardia Vital Signs Vital signs: Vital Signs - 8 hr 11/19/21 11:12 11/19/21 11:14 11/19/21 11:30 Pulse Rate 48 L 70 72 Blood Pressure 155/88 H 158/91 H Pulse Oximetry 100 100 100 11/19/21 11:41 11/19/21 11:43 11/19/21 12:00 Pulse Rate 77 72 69 Blood Pressure 130/72 130/72 Pulse Oximetry 100 100 11/19/21 12:02 11/19/21 12:30 Pulse Rate 62 57 L Blood Pressure 137/80 143/69 H Pulse Oximetry 100 99 MDM - Nausea/Vomiting/Diarrhea Lab Data Result diagrams: 11/19/21 10:20 11/19/21 10:20 Labs: Lab Results 11/19/21 11/19/21 11/19/21 Range/Units 10:20 10:20 10:20 WBC 15.9 H (4.5-11.0) X10^3/uL RBC 3.93 L (4.0-5.2) X10^6/uL Hgb 11.9 L (12.0-16.0) g/dL Hct 35.1 L (36-46) % MCV 89.4 (80-100) fL MCH 30.3 (26-34) PG MCHC 33.9 (30-36) % RDW 13.3 (11.6-14.8) % Plt Count 329 (150-400) X10^3/uL Neut % (Auto) 87.8 H (50-75) % Lymph % (Auto) 9.0 L (25-40) % [place] % (Auto) 2.3 L (3-14) % Eos % (Auto) 0.6 L (2-4) % Baso % (Auto) 0.3 (0-2) % Neut # (Auto) 25154 H (7169-2921) /uL Lymph # (Auto) 1400 (7038-3280) /uL [place] # (Auto) 400 (0-900) /uL Eos # (Auto) 100 (0-450) /uL Baso # (Auto) 100 (0-100) /uL Sodium 135 L (137-145) mmol/L Potassium 3.6 (3.4-5.1) mmol/L Chloride 106 (98-107) mmol/L Carbon Dioxide 25 (22-32) mmol/L BUN 5 L (7-17) mg/dL Creatinine 0.59 (0.52-1.04) mg/dL Estimated GFR > 60.0 (>60) mL/min BUN/Creatinine Ratio 8.5 (6-22) Glucose 130 H (70-100) mg/dL Calcium 9.0 (8.4-10.2) mg/dL Total Bilirubin 0.6 (0.2-1.3) mg/dL AST 27 (14-36) IU/L ALT 14 14 (<35) IU/L Alkaline Phosphatase 58 (38-126) U/L Lactate Dehydrogenase 379 (313-618) U/L Total Protein 6.9 (6.3-8.2) g/dL Albumin 3.8 (3.5-5.0) g/dL Globulin 3.1 (1.7-4.1) g/dL Albumin/Globulin Ratio 1.2 (1.0-2.8) Urine Color Urine Appearance Urine pH (4.5-8.0) Ur Specific [place] (1.000-1.035) Urine Protein (Negative) Urine Glucose (UA) (Negative) g/dL Urine Ketones (NEGATIVE) Urine Occult Blood (Negative) Urine Nitrate (Negative) Urine Bilirubin (NEGATIVE) Urine Urobilinogen (0.2) E.U./dL Ur Leukocyte Esterase (NEGATIVE) Urine RBC (0-5/HPF) Urine WBC (0-5/HPF) Ur Squamous Epith Cells (0-5/HPF) Amorphous Sediment Urine Bacteria (None) Ur Culture Indicated? Ketones 0.65 H (<0.27) mmol/L SARS-CoV-2 (PCR) (Negative) 11/19/21 11/19/21 Range/Units 10:45 11:30 WBC (4.5-11.0) X10^3/uL RBC (4.0-5.2) X10^6/uL Hgb (12.0-16.0) g/dL Hct (36-46) % MCV (80-100) fL MCH (26-34) PG MCHC (30-36) % RDW (11.6-14.8) % Plt Count (150-400) X10^3/uL Neut % (Auto) (50-75) % Lymph % (Auto) (25-40) % [place] % (Auto) (3-14) % Eos % (Auto) (2-4) % Baso % (Auto) (0-2) % Neut # (Auto) (9476-3253) /uL Lymph # (Auto) (2431-8667) /uL [place] # (Auto) (0-900) /uL Eos # (Auto) (0-450) /uL Baso # (Auto) (0-100) /uL Sodium (137-145) mmol/L Potassium (3.4-5.1) mmol/L Chloride (98-107) mmol/L Carbon Dioxide (22-32) mmol/L BUN (7-17) mg/dL Creatinine (0.52-1.04) mg/dL Estimated GFR (>60) mL/min BUN/Creatinine Ratio (6-22) Glucose (70-100) mg/dL Calcium (8.4-10.2) mg/dL Total Bilirubin (0.2-1.3) mg/dL AST (14-36) IU/L ALT (<35) IU/L Alkaline Phosphatase (38-126) U/L Lactate Dehydrogenase (313-618) U/L Total Protein (6.3-8.2) g/dL Albumin (3.5-5.0) g/dL Globulin (1.7-4.1) g/dL Albumin/Globulin Ratio (1.0-2.8) Urine Color Yellow Urine Appearance Sl cloudy Urine pH >= 9.0 H (4.5-8.0) Ur Specific [place] 1.020 (1.000-1.035) Urine Protein 1+ H (Negative) Urine Glucose (UA) Negative (Negative) g/dL Urine Ketones 2+ H (NEGATIVE) Urine Occult Blood Negative (Negative) Urine Nitrate Negative (Negative) Urine Bilirubin Negative (NEGATIVE) Urine Urobilinogen 0.2 (0.2) E.U./dL Ur Leukocyte Esterase Negative (NEGATIVE) Urine RBC 0-1/hpf (0-5/HPF) Urine WBC 0-1/hpf (0-5/HPF) Ur Squamous Epith Cells 1-5 /hpf (0-5/HPF) Amorphous Sediment 2+ Urine Bacteria None seen (None) Ur Culture Indicated? Cult not indicated Ketones (<0.27) mmol/L SARS-CoV-2 (PCR) Negative (Negative) Urine Dip Bedside Urine Glucose Negative Bedside Urine Bilirubin - Negative Bedside Urine Ketone +/- 5 Urine Specific [place] 1.010 Bedside Urine Occult Blood - Negative Bedside Urine pH 9.0 Bedside Urine Protein +/- 15 Bedside Urine Urobilinogen - Negative Bedside Urine Nitrite - Negative Bedside Urine Leukocytes - Negative Esterase Discharge Plan Departure Patient Disposition: Admitted as Observation Clinical Impression: Hyperemesis gravidarum Admit Date/Time: 11/19/21 13:27 Admit Provider: Krystal Mcclure
[2021-11-19] MEDS: PANTOPRAZOLE 40 MG VIAL IV (10:14)
[2021-11-19] MEDS: SODIUM CHLORIDE 0.9% 1,000 ML 1000 ML IV (10:14)
[2021-11-19] MEDS: ONDANSETRON 4 MG/2 ML INJ IV ×3 (10:15→19:32)
[2021-11-19 10:31] LABS: Add Manual Diff / Slide Review NO; Basophils Absolute Auto 100 /uL (0-100); Basophils Percent Auto 0.3 % (0-2); Eosinophils Absolute Auto 100 /uL (0-450); Eosinophils Percent Auto 0.6 % (2-4); Hematocrit 35.1 % (36-46); Hemoglobin 11.9 g/dL (12.0-16.0); Lymphocytes Absolute Auto 1400 /uL (1100-4500); Mean Corpuscular HGB Conc 33.9 % (30-36); Mean Corpuscular Hemoglobin 30.3 PG (26-34); Mean Corpuscular Volume 89.4 fL (80-100); Monocytes Absolute Auto 400 /uL (0-900); Monocytes Percent Auto 2.3 % (3-14); Neutrophils Absolute Auto 13900 /uL (1500-7000); Neutrophils Percent Auto 87.8 % (50-75); Platelet Count 329 X10^3/uL (150-400); Red Blood Cell Count 3.93 X10^6/uL (4.0-5.2); Red Cell Distribution Width 13.3 % (11.6-14.8); White Blood Cell Count 15.9 X10^3/uL (4.5-11.0)
[2021-11-19 10:43] LABS: Alanine Aminotransferase 14 IU/L (<35); Albumin 3.8 g/dL (3.5-5.0); Albumin Globulin Ratio 1.2 (1.0-2.8); Alkaline Phosphatase 58 U/L (38-126); Aspartate Aminotransferase 27 IU/L (14-36); BUN Creatinine Ratio 8.5 (6-22); Bilirubin Total 0.6 mg/dL (0.2-1.3); Blood Urea Nitrogen 5 mg/dL (7-17); Carbon Dioxide 25 mmol/L (22-32); Chloride 106 mmol/L (98-107); Estimated Glomerular Filt Rate > 60.0 mL/min (>60); Globulin 3.1 g/dL (1.7-4.1); Glucose 130 mg/dL (70-100); HEMOLYSIS < 15 (0-50); Potassium 3.6 mmol/L (3.4-5.1); Sodium 135 mmol/L (137-145); Total Protein 6.9 g/dL (6.3-8.2)
[2021-11-19 10:45] LABS: Alanine Aminotransferase 14 IU/L (<35); Lactate Dehydrogenase 379 U/L (313-618)
[2021-11-19 10:46] LABS: Ketones (Beta-Hydroxybutyrate) 0.65 mmol/L (<0.27)
[2021-11-19] MEDS: HYDRALAZINE 20 MG/ML VIAL 5 MG IV (11:09)
[2021-11-19] MEDS: METOCLOPRAMIDE 10 MG/2 ML INJ IV ×2 (11:20→21:28)
--- NOTE | 2021-11-19 11:29 | PC.NURSE ---
Pt's HR dropped to 48 while lying flat, sat pt up in bed and rate returned to mid-60's. Provider aware.
[2021-11-19 11:40] LABS: Appearance Urine UA SL CLOUDY; Bilirubin Urine UA NEGATIVE (NEGATIVE); Color Urine UA YELLOW; Glucose Urine UA NEGATIVE (Negative); Ketones Urine UA 2+ (NEGATIVE); Leukocyte Esterase Urine UA NEGATIVE (NEGATIVE); Nitrite Urine UA NEGATIVE (Negative); Occult Blood Urine UA NEGATIVE (Negative); Protein Urine UA 1+ (Negative); Urobilinogen Urine UA 0.2 E.U./dL (0.2)
[2021-11-19 11:43] LABS: pH Urine UA >= 9.0 (4.5-8.0)
[2021-11-19 11:51] LABS: COVID19 -Nasal RAPID Negative (Negative)
[2021-11-19 11:59] LABS: Amorphous Sediment Urine 2+; Bacteria Urine None Seen; Culture Indicated Urine Cult Not Indicated; RBC Urine 0-1/HPF (0-5/HPF); Squamous Epithelial Cell Urine 1-5 /HPF (0-5/HPF); WBC Urine 0-1/HPF (0-5/HPF)
--- NOTE | 2021-11-19 12:05 | PC.NURSE ---
Pt has a follow up appt with Dr. Ventura tomorrow 11/20 @ 3057.
--- NOTE | 2021-11-19 12:09 | PC.NURSE ---
Pt states she is 17 wks , has been seen at the infusion clinic weekly for fluids due to hyper emesis with .
[2021-11-19] MEDS: PROCHLORPERAZINE 10 MG/2 ML VIAL IV (13:42)
[2021-11-19] MEDS: DEXTROSE 5%-LACTATED RINGERS 1,000 ML 100 ML IV (14:32)
[2021-11-19] MEDS: methylPREDNISolone 125 MG/2 ML VIAL 16 MG IV ×2 (14:33→21:28)
[2021-11-19] MEDS: THIAMINE 200 MG/2 ML VIAL 100 MG IV (14:33)
--- NOTE | 2021-11-19 14:40 | PM.GYNHP.1 ---
History of Present Illness History of Present Illness Reason for admission: other (Hyperemesis) Narrative: Laurie Ferrera is a 31 year old female 4 para 1 EDC 04/26 at 17 weeks gestation with hyperemesis throughout this and her prior pregnancies. Patient had a PICC line in that was removed at the end of September due to a crack in the line. She was doing better so it was left out. Patient has been getting IV infusions however fairly frequently. She presented to the emergency room complaining of 24 hours of severe nausea and vomiting. She was treated in the emergency room with IV fluids IV Reglan, Zofran, prochlorperazine. She has had no relief of her severe nausea vomiting. Her blood pressure was significantly elevated at 170 7/86 on admission and was treated with hydralazine and labetalol. Blood pressure is now improved. Because she still is having emesis she is admitted for observation and continued hydration. Patient has been having constipation. She did have some diarrhea this morning. She denies any vaginal bleeding. She has cramping but she feels is more intestinal than uterine. No UTI symptoms. No cough, shortness of breath, or chest pain. On physical exam the patient's lungs are clear to auscultation percussion. Heart is regular rate and rhythm no S3-S4 murmurs. Abdomen is soft with some upper abdominal tenderness but no rebound. Uterus is 17 weeks size and nontender. Extremities without edema and nontender. [facility] Medical History Chronic eczema (~2014) 2 Hyperemesis affecting , antepartum (~2020) Vaginal delivery (~2010) Surgical History History of placement of ear tubes (~2006) S/P tonsillectomy and adenoidectomy (~2006) [place] teeth extracted (~2019) Family History Mother No problems noted. Father Family history unknown Grandmother Multiple sclerosis Grandfather S/P CABG x 3 Hyperlipidemia Alcoholic Grandmother Cancer Grandfather No problems noted. Social History marital status: unmarried,living together number of children: 2 household members: significant other, family ([place] Mom. ) and children (Her son and FOB's son: half custody.) lives independently: Yes caregiver/support person: No pets and animals: Yes (2 dogs, 3 sheep, 50 pigs, chicken, ducks, geese: aware. ) education level: high school occupational status: unemployed (Left job in Jun due to vaccine mandate. 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 special mallory needs: No seatbelt use: always do you feel safe at home: Yes Smoking Status: Never smoker second hand exposure: No alcohol intake: former (Pre-: a couple times a month. ) substance use type: marijuana (Quit with . Previously was a daily smoker. ) during the past year weight has: decreased > 10 lbs (lost 12 lbs r/t hyperemesis.) well-balanced diet: rarely or never (Week 4 until present: many days she can't keep anything down. Yesterday was first time she ate in a while.) daily servings fruits/ve-1 (1-2) caffeine: No Type(s) of exercise: walking (Normally walks regularly, but last 6 weeks has felt too poorly. ) frequency: 3-4 times per week duration: 45-60 minutes/day Meds Home Medications and Allergies Home Medications Medication Instructions Recorded Confirmed Type vit no.133-ferrous 1 cap PO QAM 03/09/18 10/29/21 History fumarate 28 mg-folic acid 800 mcg tablet () doxylamine succinate 25 mg tablet 25 mg PO BEDTIME PRN 09/24/21 10/29/21 History (Unisom (doxylamine)) pyridoxine (vitamin B6) 50 mg 50 mg PO ONCE 09/24/21 10/29/21 History tablet metoclopramide HCl 10 mg 10 mg PO Q6H PRN #20 tab 10/21/21 10/29/21 Rx disintegrating tablet Allergies Allergy/AdvReac Type Severity Reaction Status Date / Time hydrocodone [From Vicodin] AdvReac Vomiting Verified 11/19/21 09:47 Exam Vital Signs (past 8 hours): - 11/19/21 09:40 11/19/21 10:07 11/19/21 10:08 Temperature 96.9 F L Pulse Rate 67 Respiratory Rate 15 Blood Pressure 177/86 H 168/95 H 168/95 H Pulse Oximetry 99 11/19/21 10:23 11/19/21 10:26 11/19/21 10:30 Temperature Pulse Rate 68 68 55 L Respiratory Rate 18 Blood Pressure 168/95 H Pulse Oximetry 100 99 99 11/19/21 10:31 11/19/21 10:45 11/19/21 11:00 Temperature Pulse Rate 64 62 63 Respiratory Rate Blood Pressure 176/78 H 173/79 H Pulse Oximetry 100 100 99 11/19/21 11:01 11/19/21 11:09 11/19/21 11:12 Temperature Pulse Rate 67 66 48 L Respiratory Rate Blood Pressure 161/83 H 161/83 H 155/88 H Pulse Oximetry 98 100 11/19/21 11:14 11/19/21 11:30 11/19/21 11:41 Temperature Pulse Rate 70 72 77 Respiratory Rate Blood Pressure 158/91 H 130/72 Pulse Oximetry 100 100 100 11/19/21 11:43 11/19/21 12:00 11/19/21 12:02 Temperature Pulse Rate 72 69 62 Respiratory Rate Blood Pressure 130/72 137/80 Pulse Oximetry 100 100 11/19/21 12:30 Temperature Pulse Rate 57 L Respiratory Rate Blood Pressure 143/69 H Pulse Oximetry 99 Oxygen Delivery Method Room Air Objective Labs Result Diagrams: 11/19/21 10:20 11/19/21 10:20 Labs: Laboratory Results - last 24 hr 11/19/21 11/19/21 11/19/21 10:20 10:20 10:20 WBC 15.9 H RBC 3.93 L Hgb 11.9 L Hct 35.1 L MCV 89.4 MCH 30.3 MCHC 33.9 RDW 13.3 Plt Count 329 Neut % (Auto) 87.8 H Lymph % (Auto) 9.0 L [place] % (Auto) 2.3 L Eos % (Auto) 0.6 L Baso % (Auto) 0.3 Neut # (Auto) 03509 H Lymph # (Auto) 1400 [place] # (Auto) 400 Eos # (Auto) 100 Baso # (Auto) 100 Sodium 135 L Potassium 3.6 Chloride 106 Carbon Dioxide 25 BUN 5 L Creatinine 0.59 Estimated GFR > 60.0 BUN/Creatinine Ratio 8.5 Glucose 130 H Calcium 9.0 Total Bilirubin 0.6 AST 27 ALT 14 14 Alkaline Phosphatase 58 Lactate Dehydrogenase 379 Total Protein 6.9 Albumin 3.8 Globulin 3.1 Albumin/Globulin Ratio 1.2 Urine Color Urine Appearance Urine pH Ur Specific [place] Urine Protein Urine Glucose (UA) Urine Ketones Urine Occult Blood Urine Nitrate Urine Bilirubin Urine Urobilinogen Ur Leukocyte Esterase Urine RBC Urine WBC Ur Squamous Epith Cells Amorphous Sediment Urine Bacteria Ur Culture Indicated? Ketones 0.65 H SARS-CoV-2 (PCR) 11/19/21 11/19/21 10:45 11:30 WBC RBC Hgb Hct MCV MCH MCHC RDW Plt Count Neut % (Auto) Lymph % (Auto) [place] % (Auto) Eos % (Auto) Baso % (Auto) Neut # (Auto) Lymph # (Auto) [place] # (Auto) Eos # (Auto) Baso # (Auto) Sodium Potassium Chloride Carbon Dioxide BUN Creatinine Estimated GFR BUN/Creatinine Ratio Glucose Calcium Total Bilirubin AST ALT Alkaline Phosphatase Lactate Dehydrogenase Total Protein Albumin Globulin Albumin/Globulin Ratio Urine Color Yellow Urine Appearance Sl cloudy Urine pH >= 9.0 H Ur Specific [place] 1.020 Urine Protein 1+ H Urine Glucose (UA) Negative Urine Ketones 2+ H Urine Occult Blood Negative Urine Nitrate Negative Urine Bilirubin Negative Urine Urobilinogen 0.2 Ur Leukocyte Esterase Negative Urine RBC 0-1/hpf Urine WBC 0-1/hpf Ur Squamous Epith Cells 1-5 /hpf Amorphous Sediment 2+ Urine Bacteria None seen Ur Culture Indicated? Cult not indicated Ketones SARS-CoV-2 (PCR) Negative Assessment & Plan Assessment and plan (1) Hyperemesis gravidarum: Status: Acute (2) 17 weeks gestation of : Status: Acute Assessment & Plan narrative: 17 week gestation with hyperemesis on resolve with IV fluids and IV anti nausea medicines in the emergency room. Patient will be admitted for continued hydration and treatment for nausea. Will give her IV thiamine and methylprednisolone as well as IV Zofran. COVID-19 COVID-19 status: Negative Result date/Date tested (Pos, Neg/Pending): 11/19/21 Time Spent With Patient Time with patient: less than 30 minutes Critical Care time: I spent a total of [] minutes of critical care time on this patient's care today; this time is exclusive of procedural time.
[2021-11-20 00:20] VITALS: BP 159/98; PULSE 77; RESP 16; TEMP 37; O2SAT 98
[2021-11-20] MEDS: DEXTROSE 5%-LACTATED RINGERS 1,000 ML 100 ML IV (01:01)
[2021-11-20] MEDS: ONDANSETRON 4 MG/2 ML INJ IV ×2 (03:15→11:19)
[2021-11-20] MEDS: METOCLOPRAMIDE 10 MG/2 ML INJ IV ×2 (05:58→11:28)
[2021-11-20] MEDS: methylPREDNISolone 125 MG/2 ML VIAL 16 MG IV (05:58)
[2021-11-20 06:15] VITALS: BP 123/84; RESP 18; TEMP 36.8; O2SAT 97
[2021-11-20 06:47] LABS: BUN Creatinine Ratio 5.8 (6-22); Blood Urea Nitrogen 3 mg/dL (7-17); Calcium 8.3 mg/dL (8.4-10.2); Carbon Dioxide 25 mmol/L (22-32); Chloride 105 mmol/L (98-107); Estimated Glomerular Filt Rate > 60.0 mL/min (>60); Glucose 133 mg/dL (70-100); HEMOLYSIS < 15 (0-50); Potassium 3.1 mmol/L (3.4-5.1); Sodium 134 mmol/L (137-145)
[2021-11-20 07:00] VITALS: O2SAT 98
[2021-11-20 07:25] VITALS: BP 140/81; PULSE 59; RESP 18; TEMP 37; O2SAT 98
[2021-11-20] MEDS: PROMETHAZINE 12.5 MG SUPP PR (08:44)
[2021-11-20] MEDS: THIAMINE 200 MG/2 ML VIAL 100 MG IV (08:48)
[2021-11-20 09:43] VITALS: O2SAT 99
[2021-11-20] MEDS: POTASSIUM CHLORIDE IN WATER 10 MEQ/100 ML PIGGYBACK 100 MEQ IV ×2 (09:44→11:29)
--- NOTE | 2021-11-20 10:25 | PM.DS.1 ---
History of Present Illness History of Present Illness Date Patient Seen: 11/20/21 Time Patient Seen: 10:25 Date of Onset of Symptoms: 11/19/21 Chief complaint: hyperemisis, puking blood, constant vomit/diarrhea Discharge Providers Provider Date of admission: 11/19/21 13:27 Discharge Date: 11/20/21 Primary care physician: Connie Ventura MD Discharge provider: Krystal Mcclure MD Summary Hospital Course Discharge Diagnosis: Hyperemesis at 17 weeks Hospital Course: Patient was admitted from the emergency room for uncontrolled hyperemesis with some blood in her emesis, upper abdominal pain, diarrhea. She also had hypertension that resolved with hydralazine and labetalol. She received IV fluids, IV anti nausea medicines with Phenergan rectal suppositories, IV steroid, IV thiamine, IV potassium replacement. Patient states she feels much better today and is requesting discharge. Status at Discharge Cognitive/behavioral status at discharge: oriented Functional status at discharge: independent ambulation Overall status at discharge: patient is progressing back to baseline Time Spent with Patient Time spent: Less than 30 minutes Exam Vital Signs (past 8 hours): - 11/20/21 06:15 11/20/21 07:25 Temperature 98.2 F 98.6 F Pulse Rate 59 L Respiratory Rate 18 18 Blood Pressure 123/84 140/81 Pulse Oximetry 97 98 Oxygen Delivery Method Room Air Oxygen Flow Rate 0 Narrative Exam Narrative: Abdomen is soft, nontender. Uterus is soft, 17 weeks size, nontender. No vaginal bleeding. Extremities without edema and nontender. Objective Labs Result Diagrams: 11/19/21 10:20 11/20/21 05:58 Labs: Laboratory Results - last 24 hr 11/19/21 11/19/21 11/19/21 10:20 10:20 10:20 WBC 15.9 H RBC 3.93 L Hgb 11.9 L Hct 35.1 L MCV 89.4 MCH 30.3 MCHC 33.9 RDW 13.3 Plt Count 329 Neut % (Auto) 87.8 H Lymph % (Auto) 9.0 L [place] % (Auto) 2.3 L Eos % (Auto) 0.6 L Baso % (Auto) 0.3 Neut # (Auto) 20065 H Lymph # (Auto) 1400 [place] # (Auto) 400 Eos # (Auto) 100 Baso # (Auto) 100 Sodium 135 L Potassium 3.6 Chloride 106 Carbon Dioxide 25 BUN 5 L Creatinine 0.59 Estimated GFR > 60.0 BUN/Creatinine Ratio 8.5 Glucose 130 H Calcium 9.0 Total Bilirubin 0.6 AST 27 ALT 14 14 Alkaline Phosphatase 58 Lactate Dehydrogenase 379 Total Protein 6.9 Albumin 3.8 Globulin 3.1 Albumin/Globulin Ratio 1.2 Urine Color Urine Appearance Urine pH Ur Specific [place] Urine Protein Urine Glucose (UA) Urine Ketones Urine Occult Blood Urine Nitrate Urine Bilirubin Urine Urobilinogen Ur Leukocyte Esterase Urine RBC Urine WBC Ur Squamous Epith Cells Amorphous Sediment Urine Bacteria Ur Culture Indicated? Ketones 0.65 H SARS-CoV-2 (PCR) 11/19/21 11/19/21 11/20/21 10:45 11:30 05:58 WBC RBC Hgb Hct MCV MCH MCHC RDW Plt Count Neut % (Auto) Lymph % (Auto) [place] % (Auto) Eos % (Auto) Baso % (Auto) Neut # (Auto) Lymph # (Auto) [place] # (Auto) Eos # (Auto) Baso # (Auto) Sodium 134 L Potassium 3.1 L Chloride 105 Carbon Dioxide 25 BUN 3 L Creatinine 0.52 Estimated GFR > 60.0 BUN/Creatinine Ratio 5.8 L Glucose 133 H Calcium 8.3 L Total Bilirubin AST ALT Alkaline Phosphatase Lactate Dehydrogenase Total Protein Albumin Globulin Albumin/Globulin Ratio Urine Color Yellow Urine Appearance Sl cloudy Urine pH >= 9.0 H Ur Specific [place] 1.020 Urine Protein 1+ H Urine Glucose (UA) Negative Urine Ketones 2+ H Urine Occult Blood Negative Urine Nitrate Negative Urine Bilirubin Negative Urine Urobilinogen 0.2 Ur Leukocyte Esterase Negative Urine RBC 0-1/hpf Urine WBC 0-1/hpf Ur Squamous Epith Cells 1-5 /hpf Amorphous Sediment 2+ Urine Bacteria None seen Ur Culture Indicated? Cult not indicated Ketones SARS-CoV-2 (PCR) Negative PFSH Medical History Chronic eczema (~2014) 2 Hyperemesis affecting , antepartum (~2020) Vaginal delivery (~2010) Surgical History History of placement of ear tubes (~2006) S/P tonsillectomy and adenoidectomy (~2006) Slaughter teeth extracted (~2019) Family History Mother No problems noted. Father Family history unknown Grandmother Multiple sclerosis Grandfather S/P CABG x 3 Hyperlipidemia Alcoholic Grandmother Cancer Grandfather No problems noted. Social History marital status: unmarried,living together number of children: 2 household members: significant other, family and children lives independently: Yes caregiver/support person: No pets and animals: Yes (2 dogs, 3 sheep, 50 pigs, chicken, ducks, geese: aware. ) education level: high school occupational status: unemployed (Left job in Jun due to vaccine mandate. 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 special mallory needs: No seatbelt use: always do you feel safe at home: Yes Smoking Status: Never smoker second hand exposure: No alcohol intake: former substance use type: marijuana (Quit with . Previously was a daily smoker. ) during the past year weight has: decreased > 10 lbs (lost 12 lbs r/t hyperemesis.) well-balanced diet: rarely or never (Week 4 until present: many days she can't keep anything down. Yesterday was first time she ate in a while.) daily servings fruits/ve-1 (1-2) caffeine: No Type(s) of exercise: walking (Normally walks regularly, but last 6 weeks has felt too poorly. ) frequency: 3-4 times per week duration: 45-60 minutes/day Discharge Assessment & Plan Assessment and Plan Assessment: 17 weeks gestation with hyperemesis and elevated blood pressures in the emergency room Plan of Treatment: Patient discharged home she would like a prescription for the Phenergan rectal suppositories sent to her pharmacy. Her blood pressures are borderline high but I do not feel that she needs to be on blood pressure medicine at this time. Discharge Plan Discharge Plan Patient Disposition: Home Discharge orders & Medications Prescriptions: New promethazine 12.5 mg Suppository 12.5 mg GA Q6HR PRN (Reason: Nausea) Qty: 10 2RF Continued metoclopramide HCl 10 mg tablet,disintegrating 10 mg PO Q6H PRN (Reason: nausea and vomiting) Qty: 20 2RF pyridoxine (vitamin B6) 50 mg tablet 50 mg PO ONCE 0RF 28-800 mg-mcg Tablet 1 cap PO QAM 0RF Follow up/Referrals: Connie Ventura MD [Primary Care Provider] - As previously scheduled Diet/Activity/Treatments Diet: Diet as Tolerated Activity: no restrictions Skin/Wound/Dressing Care Report to your healthcare provider any signs of infection, such as:: chills, fever and increased pain Discharge Data Primary Care Provider: Connie Ventura Attending Provider: Krystal Mcclure Quality VTE Deep Vein Thrombosis/Pulmonary Embolism Present on Admission: No
--- NOTE | 2021-11-20 11:09 | CM.DANOTE ---
DCP Brief Assessment Note Patient is a 31 yo female who was admitted on 11/19/21 for Hyperemeisis. Pt has [facility] and [facility] for insurance and her PCP is Dr. Connie Ventura. EMR was reviewed. Per OBGYN, pt is 17 weeks with intractable v/d and admitted for stabilization. Per OBGYN, pt has improved and medically stable to d/c home later today with medications sent to her preferred pharmacy. Per RN, no concerns at this time. Pt lives in [place] with her Sig Other and is independent at baseline and drives and currently not working since this fall 2020 due to COVID vaccine requirements for work. Pt has had difficult with morning sickness but has received consistent care. No barriers to discharge at this time. Plan: SW to follow for plan of discharge to home today via Sig other POV and outpt f/u with her OBGYN. LOAN Mitchell
[2021-11-20 11:15] VITALS: BP 126/79; PULSE 74; RESP 18; TEMP 36.9; O2SAT 98
--- NOTE | 2021-11-20 12:58 | PC.NURSE ---
Pt is A&OX3, VSS, afebrile on RA. She is independent in her room. She denies vomitting since previous night and reports nausea feeling much better controlled but rates it a 4 on a scale of 10. PRN anti emetics given per orders with some relief and she is able to tolerate a fair amount of po intake w/vomitting. MD at bedside this a.m. clearing her for discharge home. Pt verbalizes undertanding of activity, recommendations,symptoms worsening, medications and follow up recommendations. She is escorted out of the hospital via w/ch this a.m with her mother and all of her belongings for discharge home via private vehicle.
== END 2021-11-20 12:30 | disposition home or self-care (01) ==
LOC: ED 09:39 → AC 13:27
PROVIDERS: Admitting Provider Specialist; Emergency Provider Emergency Medicine; PCP Obstetrics & Gynecology; Referring Provider Emergency Medicine; Visit Provider Specialist
DX: O21.0 Mild hyperemesis gravidarum (principal); Z3A.17 17 weeks gestation of pregnancy; Z20.822 Contact with and (suspected) exposure to COVID-19
CPT/HCPCS: 36415; 80048; 80053; 81001; 81003; 82009; 83615; 84460; 85025; 87635; 94760; 96361; 96365; 96366; 96375; 96376; 99217; 99219; 99284; C9803; G0378; C9113; J0360; J0780; J2405; J2765; J2930; J7121

== ENCOUNTER 2021-12-14 17:15 | Emergency (ER) | payer OTHER, MEDICAID, SELFPAY ==
[2021-11-19 14:40] VITALS: BMI 30.2
[2021-12-14 17:51] VITALS: BP 157/93; PULSE 54; RESP 16; TEMP 36.3; O2SAT 100; BMI 28.3
--- NOTE | 2021-12-14 18:05 | DI.US.S_ITS ---
PROCEDURE: US OB LIMITED INDICATIONS: INCREASED CRAMPING, 20 WEEKS OUTSIDE/PRIOR DATING DATA: Last menstrual period (LMP): 07/20/2021. LMP-based estimated date of delivery (FLORES): 04/26/2022 First dating scan (date and location): 09/28/2021 Estimated date of delivery (FLORES) from first dating scan: 04/22/2022 TECHNIQUE: Real-time scanning was performed of the fetus, with image documentation. Endovaginal scanning: None COMPARISON: None. FINDINGS: A single living intrauterine gestation is present. Presentation: Transverse Placenta: Placental position is fundal, without previa. Amniotic fluid index: 17.3 cm, normal range is 5-24 cm. heart rate: 147 beats per minute. Maternal cervical canal: 2.7 cm long. Normal lower limit is 2.5 cm. Estimated gestational age from initial scan: 21 week 4 day. IMPRESSION: Single live intrauterine consistent with a 21 week 4 day gestation No evidence of placental abruption. Cervix 2.7 cm, closed Approved by: Linus Garcia M.D. on 12/14/2021 at 18:01
--- NOTE | 2021-12-14 19:44 | PC.NURSE ---
Spoke w/ Dr. Ventura who states pt may go to center: ED is on diversion / saturation.
[2021-12-14 20:07] LABS: RBC Urine None Seen (0-5/HPF); WBC Urine 1-5/HPF (0-5/HPF)
[2021-12-14 20:08] LABS: Amorphous Sediment Urine 1+; Bacteria Urine Occasional (0-1); Culture Indicated Urine Cult Not Indicated; Mucus Urine 1+ (Negative); Squamous Epithelial Cell Urine 5-10 /HPF (0-5/HPF)
== END 2021-12-14 20:00 | disposition left against medical advice (07) ==
PROVIDERS: Emergency Provider Emergency Medicine; PCP Obstetrics & Gynecology
DX: O21.0 Mild hyperemesis gravidarum (principal); O26.892 Other specified pregnancy related conditions, second trimester; R10.9 Unspecified abdominal pain; Z3A.21 21 weeks gestation of pregnancy; Z53.21 Procedure and treatment not carried out due to patient leaving prior to being seen by health care provider
CPT/HCPCS: 36415; 59050; 76815; 80048; 81003; 81015; 96360; 96361; 96375; 99283; G0378; G0379; J2405; J2765

== ENCOUNTER 2021-12-14 19:47 | Observation (INO) | payer OTHER, MEDICAID, SELFPAY ==
[2021-11-19 14:40] VITALS: BMI 30.2
[2021-12-14 20:44] LABS: BUN Creatinine Ratio 13.8 (6-22); Blood Urea Nitrogen 8 mg/dL (7-17); Calcium 8.8 mg/dL (8.4-10.2); Carbon Dioxide 22 mmol/L (22-32); Chloride 103 mmol/L (98-107); Estimated Glomerular Filt Rate > 60.0 mL/min (>60); Glucose 152 mg/dL (70-100); HEMOLYSIS < 15 (0-50); Potassium 3.3 mmol/L (3.4-5.1); Sodium 133 mmol/L (137-145)
[2021-12-14] MEDS: ONDANSETRON 8 MG in SODIUM CHLORIDE 0.9% 50 ML 216 ML IV (21:26)
[2021-12-14] MEDS: METOCLOPRAMIDE 10 MG/2 ML INJ IV (21:28)
[2021-12-14] MEDS: LACTATED RINGERS 1,000 ML 1000 ML IV (22:04)
[2021-12-15] MEDS: PROMETHAZINE 25 MG SUPP PR (00:04)
== END 2021-12-15 00:55 | disposition home or self-care (01) ==
LOC: LABOR 20:01
PROVIDERS: Admitting Provider Obstetrics & Gynecology; PCP Obstetrics & Gynecology; Referring Provider Obstetrics & Gynecology; Visit Provider Obstetrics & Gynecology
DX: O21.9 Vomiting of pregnancy, unspecified (principal); Z3A.21 21 weeks gestation of pregnancy
CPT/HCPCS: 36415; 59050; 80048; 96360; G0378; G0379; J2405; J2765

== ENCOUNTER → 2022-01-28 19:20 | Outpatient (ROUT) | payer OTHER, MEDICAID, SELFPAY ==
[2021-11-19 14:40] VITALS: BMI 30.2
[2022-01-28 20:52] LABS: Urine N gonorrhoeae NOT DETECTED
[2022-01-28 20:55] LABS: Urine Chlamydia NOT DETECTED
== END ==
PROVIDERS: PCP Obstetrics & Gynecology; Visit Provider Specialist
DX: Z34.82 Encounter for supervision of other normal pregnancy, second trimester (principal); Z3A.27 27 weeks gestation of pregnancy
CPT/HCPCS: 87491; 87591

== ENCOUNTER 2022-01-30 12:34 | Emergency (ER) | payer OTHER, MEDICAID, SELFPAY ==
[2021-11-19 14:40] VITALS: BMI 30.2
[2022-01-30] VITALS (9 sets, daily range): BP systolic 121–185; BP diastolic 58–96; PULSE 66–93; RESP 18; TEMP 36.7; O2SAT 98–100; BMI 31.7
--- NOTE | 2022-01-30 13:23 | ED_ITS ---
HPI - Nausea/Vomiting/Diarrhea <Joseline Ramirez, [facility] - Last Filed: 01/30/22 19:04> General Chief complaint: Nausea/Vomiting/Diarrhea Stated complaint: HG 27wk preg. can't keep anything down over 24hr Time Seen by Provider: 01/30/22 13:13 Source: patient Mode of arrival: Ambulatory History of Present Illness HPI Narrative: This is a 32-year-old female, who is 27 weeks and states she has a history of hyperemesis gravidarum and states that she has been vomiting with blood since last night. Patient states that she has had this problem before but in lesser amounts. Patient states that she was vomiting multiple times then had bleeding in her emesis approximately 4-5 oz. patient denies any fever, denies any dark stools or changes to her stool, denies diarrhea, denies constipation. She states that [facility] for this problem and dehydration. She denies any dizziness, lightheadedness, weakness, syncope, shortness of breath, chest pain, or back pain. She denies any injuries. She states that she takes Zofran and Reglan at home for her hyperemesis but was unable to keep anything down since last night. She feels dehydrated. She denies any abdominal pain. Related Data Home Medications Medication Instructions Recorded Confirmed vit no.133-ferrous 1 cap PO QAM 03/09/18 01/28/22 fumarate 28 mg-folic acid 800 mcg tablet () pyridoxine (vitamin B6) 50 mg 50 mg PO ONCE 09/24/21 01/28/22 tablet Previous Rx's Medication Instructions Recorded metoclopramide HCl 10 mg 10 mg PO Q6H PRN #20 tab 10/21/21 disintegrating tablet potassium chloride 20 mEq oral 20 meq PO DAILY #10 ea 11/20/21 packet promethazine 12.5 mg rectal 12.5 mg NC Q6HR PRN #10 ea 11/20/21 suppository hydrocortisone 2.5 % topical cream 1 applic NC BID-QID PRN #30 g 12/31/21 with perineal applicator (Anusol-HC) hydrocortisone acetate 30 mg 30 mg NC BEDTIME #12 ea 01/28/22 rectal suppository (Hemmorex-HC) Allergies Allergy/AdvReac Type Severity Reaction Status Date / Time hydrocodone [From Vicodin] AdvReac Vomiting Verified 01/30/22 13:13 Review of Systems <GALA Graves - Last Filed: 01/30/22 19:04> Review of Systems Narrative: General: denies fever, chills, malaise, sweats, fatigue Head/Neck: denies headache, neck pain, dizziness Eyes: denies visual changes, eye pain Cardio: denies chest pain, palpitations, edema Respiratory: denies dyspnea, cough, orthopnea GI: denies abdominal pain, endorses nausea and vomiting, denies diarrhea : denies dysuria, hematuria, urinary retention, frequency or incontinence MSK: denies joint pain, muscle weakness Skin: denies rash, itching, skin lesions or other Neuro: denies numbness, tingling Patient History <GALA Graves - Last Filed: 01/30/22 19:04> Medical History Chronic eczema (~2014) 2 Hyperemesis affecting , antepartum (~2020) Vaginal delivery (~2010) Surgical History History of placement of ear tubes (~2006) S/P tonsillectomy and adenoidectomy (~2006) [place] teeth extracted (~2019) Family History Mother No problems noted. Father Family history unknown Grandmother Multiple sclerosis Grandfather S/P CABG x 3 Hyperlipidemia Alcoholic Grandmother Cancer Grandfather No problems noted. Social History marital status: unmarried,living together number of children: 2 household members: significant other, family and children lives independently: Yes caregiver/support person: No pets and animals: Yes (2 dogs, 3 sheep, 50 pigs, chicken, ducks, geese: aware. ) education level: high school occupational status: unemployed (Left job in Jun due to vaccine mandate. 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 special mallory needs: No seatbelt use: always do you feel safe at home: Yes Smoking Status: Never smoker second hand exposure: No alcohol intake: former substance use type: marijuana (Quit with . Previously was a daily smoker. ) during the past year weight has: decreased > 10 lbs (lost 12 lbs r/t hyperemesis.) well-balanced diet: rarely or never (Week 4 until present: many days she can't keep anything down. Yesterday was first time she ate in a while.) daily servings fruits/ve-1 (1-2) caffeine: No Type(s) of exercise: walking (Normally walks regularly, but last 6 weeks has felt too poorly. ) frequency: 3-4 times per week duration: 45-60 minutes/day Smoking Status: Never smoker alcohol intake frequency: other Substance Use Type: does not use Exam <GALA Graves - Last Filed: 01/30/22 19:04> Narrative Exam Narrative: Independently reviewed vitals signs and nursing notes. General: cooperative, comfortable, in no acute distress, well developed and well groomed Head: atraumatic, symmetrical facial expressions Neck: supple, atraumatic, without lymphadenopathy. Eyes: pupils equal round and reactive, EOMI, conjunctiva normal Nose: nares patent, no rhinorrhea Mouth/Throat: moist mucus membranes Cardiovascular: regular rate and rhythm, no peripheral edema, warm extremities Respiratory: normal effort, able to speak in complete sentences, no audible wheezing, stridor, or rales. No retractions or tachypnea. GI: abdomen gravid fundus above the umbilicus, nontender to palpation, nondistended, no masses, no exquisite tenderness with exam, without guarding or rebound. No CVA tenderness, heart tones are 158 and regular Health Care Attorney: Patient has a moderately sized, soft hemorrhoid MSK: moves all extremities, ambulatory w/steady gait, neurovascularly intact, no weakness Skin: brisk capillary refill, no rash, no erythema Neuro: normal speech and cognition, A&O x3, normal tone Psych: mental status is grossly normal, congruent mood, normal affect, pleasant and cooperative Initial Vital Signs Initial Vital Signs: Vital Signs Pulse Rate 66 01/30/22 13:09 Blood Pressure 185/96 H 01/30/22 13:09 Pulse Oximetry 99 01/30/22 13:09 <Cathie Shields MD - Last Filed: 01/31/22 07:39> Initial Vital Signs Initial Vital Signs: Vital Signs Pulse Rate 66 01/30/22 13:09 Blood Pressure 185/96 H 01/30/22 13:09 Pulse Oximetry 99 01/30/22 13:09 Course <GALA Graves - Last Filed: 01/30/22 19:04> Orders Ordered: Discontinued Medications Sodium Chloride (Normal Saline 0.9%) 1,000 mls @ 1,000 mls/hr IV BOLUS ONE Stop: 01/30/22 14:13 Last Infusion: 01/30/22 14:30 Dose: 0 mls/hr Documented by: Admin: 01/30/22 13:32 Dose: 1,000 mls/hr Documented by: ODILIA Sodium Chloride (Normal Saline 0.9%) 1,000 mls @ 1,000 mls/hr IV BOLUS ONE Stop: 01/30/22 15:29 Last Infusion: 01/30/22 15:50 Dose: 0 mls/hr Documented by: Admin: 01/30/22 14:40 Dose: 1,000 mls/hr Documented by: ODILIA Metoclopramide HCl (Metoclopramide 10 Mg/2 Ml Inj) 10 mg IV NOW ONE Stop: 01/30/22 14:33 Last Admin: 01/30/22 14:41 Dose: 10 mg Documented by: ODILIA Ondansetron HCl (Ondansetron 4 Mg/2 Ml Inj) 4 mg IV NOW ONE Stop: 01/30/22 13:15 Last Admin: 01/30/22 13:33 Dose: 4 mg Documented by: ODILIA Ondansetron HCl (Ondansetron 4 Mg/2 Ml Inj) 4 mg IV NOW ONE Stop: 01/30/22 15:52 Last Admin: 01/30/22 16:06 Dose: 4 mg Documented by: ODILIA Pantoprazole Sodium (Pantoprazole 40 Mg Vial) 20 mg IV NOW ONE Stop: 01/30/22 13:25 Last Admin: 01/30/22 13:32 Dose: 20 mg Documented by: ODILIA Potassium Chloride (Potassium Chloride 20 Meq/15 Ml Udc) 40 meq PO NOW ONE Stop: 01/30/22 14:02 Last Admin: 01/30/22 14:11 Dose: Not Given Documented by: ODILIA Potassium Chloride (Potassium Chloride 20 Meq Tab) 40 meq PO NOW ONE Stop: 01/30/22 14:04 Last Admin: 01/30/22 14:14 Dose: 40 meq Documented by: ODILIA Vital Signs Vital signs: Vital Signs - 8 hr 01/30/22 13:09 01/30/22 13:13 01/30/22 14:41 Temperature 98.1 F Pulse Rate 66 68 Respiratory Rate 18 Blood Pressure 185/96 H 185/96 H Pulse Oximetry 99 99 99 01/30/22 14:42 01/30/22 15:00 01/30/22 15:01 Temperature Pulse Rate 69 73 72 Respiratory Rate Blood Pressure 158/84 H 131/65 Pulse Oximetry 100 100 100 01/30/22 15:30 01/30/22 16:00 01/30/22 16:30 Temperature Pulse Rate 82 77 93 H Respiratory Rate Blood Pressure 138/82 152/72 H 121/58 L Pulse Oximetry 100 99 98 <Cathie Shields MD - Last Filed: 01/31/22 07:39> Orders Ordered: Discontinued Medications Sodium Chloride (Normal Saline 0.9%) 1,000 mls @ 1,000 mls/hr IV BOLUS ONE Stop: 01/30/22 14:13 Last Infusion: 01/30/22 14:30 Dose: 0 mls/hr Documented by: Admin: 01/30/22 13:32 Dose: 1,000 mls/hr Documented by: ODILIA Sodium Chloride (Normal Saline 0.9%) 1,000 mls @ 1,000 mls/hr IV BOLUS ONE Stop: 01/30/22 15:29 Last Infusion: 01/30/22 15:50 Dose: 0 mls/hr Documented by: Admin: 01/30/22 14:40 Dose: 1,000 mls/hr Documented by: ODILIA Metoclopramide HCl (Metoclopramide 10 Mg/2 Ml Inj) 10 mg IV NOW ONE Stop: 01/30/22 14:33 Last Admin: 01/30/22 14:41 Dose: 10 mg Documented by: ODILIA Ondansetron HCl (Ondansetron 4 Mg/2 Ml Inj) 4 mg IV NOW ONE Stop: 01/30/22 13:15 Last Admin: 01/30/22 13:33 Dose: 4 mg Documented by: ODILIA Ondansetron HCl (Ondansetron 4 Mg/2 Ml Inj) 4 mg IV NOW ONE Stop: 01/30/22 15:52 Last Admin: 01/30/22 16:06 Dose: 4 mg Documented by: ODILIA Pantoprazole Sodium (Pantoprazole 40 Mg Vial) 20 mg IV NOW ONE Stop: 01/30/22 13:25 Last Admin: 01/30/22 13:32 Dose: 20 mg Documented by: ODILIA Potassium Chloride (Potassium Chloride 20 Meq/15 Ml Udc) 40 meq PO NOW ONE Stop: 01/30/22 14:02 Last Admin: 01/30/22 14:11 Dose: Not Given Documented by: ODILIA Potassium Chloride (Potassium Chloride 20 Meq Tab) 40 meq PO NOW ONE Stop: 01/30/22 14:04 Last Admin: 01/30/22 14:14 Dose: 40 meq Documented by: ODILIA Vital Signs Vital signs: Vital Signs - 8 hr 01/30/22 13:09 01/30/22 13:13 01/30/22 14:41 Temperature 98.1 F Pulse Rate 66 68 Respiratory Rate 18 Blood Pressure 185/96 H 185/96 H Pulse Oximetry 99 99 99 01/30/22 14:42 01/30/22 15:00 01/30/22 15:01 Temperature Pulse Rate 69 73 72 Respiratory Rate Blood Pressure 158/84 H 131/65 Pulse Oximetry 100 100 100 01/30/22 15:30 01/30/22 16:00 01/30/22 16:30 Temperature Pulse Rate 82 77 93 H Respiratory Rate Blood Pressure 138/82 152/72 H 121/58 L Pulse Oximetry 100 99 98 MDM - Nausea/Vomiting/Diarrhea <GALA Graves - Last Filed: 01/30/22 19:04> Lab Data Result diagrams: 01/30/22 13:20 01/30/22 13:20 Labs: Lab Results 01/30/22 01/30/22 01/30/22 Range/Units 13:20 13:20 14:19 WBC 21.8 H (4.5-11.0) X10^3/uL RBC 4.24 (4.0-5.2) X10^6/uL Hgb 12.7 (12.0-16.0) g/dL Hct 36.5 (36-46) % MCV 86.2 (80-100) fL MCH 30.0 (26-34) PG MCHC 34.7 (30-36) % RDW 12.9 (11.6-14.8) % Plt Count 388 (150-400) X10^3/uL Neut % (Auto) Not Reportable Lymph % (Auto) Not Reportable [place] % (Auto) Not Reportable Eos % (Auto) Not Reportable Baso % (Auto) Not Reportable Lymph # (Auto) Not Reportable [place] # (Auto) Not Reportable Baso # (Auto) Not Reportable Total Counted 100 Seg Neutrophils % 88.0 H (38-70) % Band Neutrophils % 4.0 (3-7) % Lymphocytes % (Manual) 3.0 L (25-45) % Monocytes % (Manual) 5.0 (2-11) % Neutrophils # (Manual) 29444 H (4120-0651) /uL Plt Morphology Comment RBC Morphology Normal morphology Sodium 136 L (137-145) mmol/L Potassium 3.2 L (3.4-5.1) mmol/L Chloride 102 (98-107) mmol/L Carbon Dioxide 23 (22-32) mmol/L BUN 6 L (7-17) mg/dL Creatinine 0.69 (0.52-1.04) mg/dL Estimated GFR > 60 (>60) mL/min BUN/Creatinine Ratio 8.7 (6-22) Glucose 135 H (70-100) mg/dL Calcium 8.8 (8.4-10.2) mg/dL Magnesium 1.6 (1.6-2.3) mg/dL Total Bilirubin 0.6 (0.2-1.3) mg/dL AST 28 (14-36) IU/L ALT 16 (<35) IU/L Alkaline Phosphatase 111 (38-126) U/L Total Protein 7.5 (6.3-8.2) g/dL Albumin 4.1 (3.5-5.0) g/dL Globulin 3.4 (1.7-4.1) g/dL Albumin/Globulin Ratio 1.2 (1.0-2.8) Procalcitonin < 0.03 (<0.5) ng/mL Urine Color Urine Appearance Urine pH (4.5-8.0) Ur Specific [place] (1.000-1.035) Urine Protein (Negative) Urine Glucose (UA) (Negative) g/dL Urine Ketones (NEGATIVE) Urine Occult Blood (Negative) Urine Nitrate (Negative) Urine Bilirubin (NEGATIVE) Urine Urobilinogen (0.2) E.U./dL Ur Leukocyte Esterase (NEGATIVE) Urine RBC (0-5/HPF) Urine WBC (0-5/HPF) Ur Squamous Epith Cells (0-5/HPF) Urine Bacteria (None) Ur Culture Indicated? 01/30/22 Range/Units 14:36 WBC (4.5-11.0) X10^3/uL RBC (4.0-5.2) X10^6/uL Hgb (12.0-16.0) g/dL Hct (36-46) % MCV (80-100) fL MCH (26-34) PG MCHC (30-36) % RDW (11.6-14.8) % Plt Count (150-400) X10^3/uL Neut % (Auto) Lymph % (Auto) [place] % (Auto) Eos % (Auto) Baso % (Auto) Lymph # (Auto) [place] # (Auto) Baso # (Auto) Total Counted Seg Neutrophils % (38-70) % Band Neutrophils % (3-7) % Lymphocytes % (Manual) (25-45) % Monocytes % (Manual) (2-11) % Neutrophils # (Manual) (2105-9063) /uL Plt Morphology Comment RBC Morphology Sodium (137-145) mmol/L Potassium (3.4-5.1) mmol/L Chloride (98-107) mmol/L Carbon Dioxide (22-32) mmol/L BUN (7-17) mg/dL Creatinine (0.52-1.04) mg/dL Estimated GFR (>60) mL/min BUN/Creatinine Ratio (6-22) Glucose (70-100) mg/dL Calcium (8.4-10.2) mg/dL Magnesium (1.6-2.3) mg/dL Total Bilirubin (0.2-1.3) mg/dL AST (14-36) IU/L ALT (<35) IU/L Alkaline Phosphatase (38-126) U/L Total Protein (6.3-8.2) g/dL Albumin (3.5-5.0) g/dL Globulin (1.7-4.1) g/dL Albumin/Globulin Ratio (1.0-2.8) Procalcitonin (<0.5) ng/mL Urine Color Yellow Urine Appearance Cloudy Urine pH 5.5 (4.5-8.0) Ur Specific [place] >=1.030 H (1.000-1.035) Urine Protein 2+ H (Negative) Urine Glucose (UA) Negative (Negative) g/dL Urine Ketones 3+ H (NEGATIVE) Urine Occult Blood Negative (Negative) Urine Nitrate Negative (Negative) Urine Bilirubin Negative (NEGATIVE) Urine Urobilinogen 0.2 (0.2) E.U./dL Ur Leukocyte Esterase Negative (NEGATIVE) Urine RBC None seen (0-5/HPF) Urine WBC 5-10/hpf H (0-5/HPF) Ur Squamous Epith Cells >30 /hpf H (0-5/HPF) Urine Bacteria Moderate (10-30) H (None) Ur Culture Indicated? Cult not indicated MDM Narrative Medical decision making narrative: This is a 27 week gravid female who presents to the emergency department with hyperemesis gravidarum and a history of the same. She also endorses hemorrhoid pain but she is under treatment for this currently. Patient complains of vomiting for the last 2 days, unable to keep anything down. She was given 2 L of normal saline in the emergency department, Zofran 8 mg total, 10 mg of Reglan, she stopped having dry heaves after Reglan was given. She feels better and was ready for discharge home. Recommend to follow-up with her primary care provider, continue taking her vitamins, recommend potassium supplement as her potassium was low today and is been low on numerous lab draws, it was 3.2, she was given 40 mEq of p.o. potassium in and tolerated this without emesis. Patient already has prescription of Zofran and Reglan at home. Recommend close follow-up and return to the emergency department for any worsening. Patient endorses blood in her emesis but it was Hemoccult negative today. No peritoneal signs on abdominal exam. Patient remains p.o. tolerant. Serial abdominal exam without increase in abdominal pain. Given history and exam, low suspicion for acute abdominal process, such as acute cholecystitis, pancreatitis, perforated viscus, atypical appendicitis, colitis, diverticulitis or torsion. Wet prep was negative for yeast, Trichomonas, or other abnormality, pain for UA shows white blood cells, epithelial cells, protein and bacteria but patient is asymptomatic. Will not treat with antibiotics. No glucose, blood or leukocyte esterase. Conversation about ER return precautions and need for close follow-up. Patient is appropriate and amenable to discharge home. Vital signs are stable on repeat examination is unremarkable. Patient has been informed of results. Patient has been given strict return to ER precautions for any new or worsening symptoms. Patient understands to follow up closely with outpatient providers as instructed. Patient understands plan and agrees to discharge home. All questions and concerns answered at this time. <Cathie Shields MD - Last Filed: 01/31/22 07:39> Lab Data Labs: Lab Results 01/30/22 01/30/22 01/30/22 Range/Units 13:20 13:20 14:19 WBC 21.8 H (4.5-11.0) X10^3/uL RBC 4.24 (4.0-5.2) X10^6/uL Hgb 12.7 (12.0-16.0) g/dL Hct 36.5 (36-46) % MCV 86.2 (80-100) fL MCH 30.0 (26-34) PG MCHC 34.7 (30-36) % RDW 12.9 (11.6-14.8) % Plt Count 388 (150-400) X10^3/uL Neut % (Auto) Not Reportable Lymph % (Auto) Not Reportable [place] % (Auto) Not Reportable Eos % (Auto) Not Reportable Baso % (Auto) Not Reportable Lymph # (Auto) Not Reportable [place] # (Auto) Not Reportable Baso # (Auto) Not Reportable Total Counted 100 Seg Neutrophils % 88.0 H (38-70) % Band Neutrophils % 4.0 (3-7) % Lymphocytes % (Manual) 3.0 L (25-45) % Monocytes % (Manual) 5.0 (2-11) % Neutrophils # (Manual) 45520 H (7490-1384) /uL Plt Morphology Comment RBC Morphology Normal morphology Sodium 136 L (137-145) mmol/L Potassium 3.2 L (3.4-5.1) mmol/L Chloride 102 (98-107) mmol/L Carbon Dioxide 23 (22-32) mmol/L BUN 6 L (7-17) mg/dL Creatinine 0.69 (0.52-1.04) mg/dL Estimated GFR > 60 (>60) mL/min BUN/Creatinine Ratio 8.7 (6-22) Glucose 135 H (70-100) mg/dL Calcium 8.8 (8.4-10.2) mg/dL Magnesium 1.6 (1.6-2.3) mg/dL Total Bilirubin 0.6 (0.2-1.3) mg/dL AST 28 (14-36) IU/L ALT 16 (<35) IU/L Alkaline Phosphatase 111 (38-126) U/L Total Protein 7.5 (6.3-8.2) g/dL Albumin 4.1 (3.5-5.0) g/dL Globulin 3.4 (1.7-4.1) g/dL Albumin/Globulin Ratio 1.2 (1.0-2.8) Procalcitonin < 0.03 (<0.5) ng/mL Urine Color Urine Appearance Urine pH (4.5-8.0) Ur Specific [place] (1.000-1.035) Urine Protein (Negative) Urine Glucose (UA) (Negative) g/dL Urine Ketones (NEGATIVE) Urine Occult Blood (Negative) Urine Nitrate (Negative) Urine Bilirubin (NEGATIVE) Urine Urobilinogen (0.2) E.U./dL Ur Leukocyte Esterase (NEGATIVE) Urine RBC (0-5/HPF) Urine WBC (0-5/HPF) Ur Squamous Epith Cells (0-5/HPF) Urine Bacteria (None) Ur Culture Indicated? 01/30/22 Range/Units 14:36 WBC (4.5-11.0) X10^3/uL RBC (4.0-5.2) X10^6/uL Hgb (12.0-16.0) g/dL Hct (36-46) % MCV (80-100) fL MCH (26-34) PG MCHC (30-36) % RDW (11.6-14.8) % Plt Count (150-400) X10^3/uL Neut % (Auto) Lymph % (Auto) [place] % (Auto) Eos % (Auto) Baso % (Auto) Lymph # (Auto) [place] # (Auto) Baso # (Auto) Total Counted Seg Neutrophils % (38-70) % Band Neutrophils % (3-7) % Lymphocytes % (Manual) (25-45) % Monocytes % (Manual) (2-11) % Neutrophils # (Manual) (4157-9221) /uL Plt Morphology Comment RBC Morphology Sodium (137-145) mmol/L Potassium (3.4-5.1) mmol/L Chloride (98-107) mmol/L Carbon Dioxide (22-32) mmol/L BUN (7-17) mg/dL Creatinine (0.52-1.04) mg/dL Estimated GFR (>60) mL/min BUN/Creatinine Ratio (6-22) Glucose (70-100) mg/dL Calcium (8.4-10.2) mg/dL Magnesium (1.6-2.3) mg/dL Total Bilirubin (0.2-1.3) mg/dL AST (14-36) IU/L ALT (<35) IU/L Alkaline Phosphatase (38-126) U/L Total Protein (6.3-8.2) g/dL Albumin (3.5-5.0) g/dL Globulin (1.7-4.1) g/dL Albumin/Globulin Ratio (1.0-2.8) Procalcitonin (<0.5) ng/mL Urine Color Yellow Urine Appearance Cloudy Urine pH 5.5 (4.5-8.0) Ur Specific [place] >=1.030 H (1.000-1.035) Urine Protein 2+ H (Negative) Urine Glucose (UA) Negative (Negative) g/dL Urine Ketones 3+ H (NEGATIVE) Urine Occult Blood Negative (Negative) Urine Nitrate Negative (Negative) Urine Bilirubin Negative (NEGATIVE) Urine Urobilinogen 0.2 (0.2) E.U./dL Ur Leukocyte Esterase Negative (NEGATIVE) Urine RBC None seen (0-5/HPF) Urine WBC 5-10/hpf H (0-5/HPF) Ur Squamous Epith Cells >30 /hpf H (0-5/HPF) Urine Bacteria Moderate (10-30) H (None) Ur Culture Indicated? Cult not indicated Discharge Plan Departure Patient Disposition: Home Clinical Impression: Hyperemesis gravidarum Instructions: DI for Hyperemesis Gravidarum Activity Restrictions/Additional Instructions: *You have been diagnosed with hyperemesis gravidarum. Please take your Zofran and Reglan as needed, try stay hydrated of ST can, consider taking potassium since years has been low every day, please ensure your taking your vitamin. There are no significant findings on your workup today, no urine infection, you were dehydrated, and please continue using the hydrocortisone suppositories and cream for your hemorrhoid. Please follow-up with Dr. Ventura, return to the emergency department for any new or worsening symptoms. *What to do: *Please continue to take your regular medications as directed. [ ] New medication prescriptions sent to your pharmacy: [ ] [ ] New medication written as a paper prescription [ x] No new medications given *Please follow up with your primary care provider in 2-3 days, call for an appointment. Let them know you were seen in the Emergency Department and that we asked that you be seen for follow-up. We will electronically transmit a record of today's note if your PCP is in our system *If you do not have a primary care provider please contact [phone] to establish care with one of the [facility] primary care providers. *Return to Emergency Department if you should have any new, worsening or concerning symptoms, such as [fever greater than 101F, chills, worsening pain, persistent vomiting or other bothersome symptoms] Prescriptions: No Action metoclopramide HCl 10 mg tablet,disintegrating 10 mg PO Q6H PRN (Reason: nausea and vomiting) Qty: 20 2RF potassium chloride 20 mEq packet 20 meq PO DAILY Qty: 10 0RF hydrocortisone [Anusol-HC] 2.5 % cream with perineal applicator 1 applic NC BID-QID PRN (Reason: hemorrhoids) Qty: 30 2RF pyridoxine (vitamin B6) 50 mg tablet 50 mg PO ONCE 0RF hydrocortisone acetate [Hemmorex-HC] 30 mg suppository 30 mg NC BEDTIME Qty: 12 0RF promethazine 12.5 mg Suppository 12.5 mg NC Q6HR PRN (Reason: Nausea) Qty: 10 2RF 28-800 mg-mcg Tablet 1 cap PO QAM 0RF Referrals: Connie Ventura MD [Primary Care Provider] - <Cathie Shields MD - Last Filed: 01/31/22 07:39> Cosign ED Attending Cosignature Attestation: I was immediately available in the department for consultation throughout this patient's visit. I agree with documentation as above. Cathie Shields MD
[2022-01-30] MEDS: SODIUM CHLORIDE 0.9% 1,000 ML 1000 ML IV ×2 (13:32→14:40)
[2022-01-30] MEDS: PANTOPRAZOLE 40 MG VIAL 20 MG IV (13:32)
[2022-01-30] MEDS: ONDANSETRON 4 MG/2 ML INJ IV ×2 (13:33→16:06)
[2022-01-30 13:36] LABS: Add Manual Diff / Slide Review YES; Hematocrit 36.5 % (36-46); Hemoglobin 12.7 g/dL (12.0-16.0); Mean Corpuscular HGB Conc 34.7 % (30-36); Mean Corpuscular Volume 86.2 fL (80-100); Platelet Count 388 X10^3/uL (150-400); Red Blood Cell Count 4.24 X10^6/uL (4.0-5.2); Red Cell Distribution Width 12.9 % (11.6-14.8); White Blood Cell Count 21.8 X10^3/uL (4.5-11.0)
[2022-01-30 13:47] LABS: Alanine Aminotransferase 16 IU/L (<35); Albumin 4.1 g/dL (3.5-5.0); Albumin Globulin Ratio 1.2 (1.0-2.8); Alkaline Phosphatase 111 U/L (38-126); Aspartate Aminotransferase 28 IU/L (14-36); BUN Creatinine Ratio 8.7 (6-22); Bilirubin Total 0.6 mg/dL (0.2-1.3); Blood Urea Nitrogen 6 mg/dL (7-17); Calcium 8.8 mg/dL (8.4-10.2); Carbon Dioxide 23 mmol/L (22-32); Chloride 102 mmol/L (98-107); Estimated Glomerular Filt Rate > 60 mL/min (>60); Globulin 3.4 g/dL (1.7-4.1); Glucose 135 mg/dL (70-100); HEMOLYSIS < 15 (0-50); Magnesium 1.6 mg/dL (1.6-2.3); Potassium 3.2 mmol/L (3.4-5.1); Sodium 136 mmol/L (137-145); Total Protein 7.5 g/dL (6.3-8.2)
[2022-01-30 14:09] LABS: Total Cells Counted 100
[2022-01-30 14:10] LABS: RBC Morphology Normal Morphology
[2022-01-30] MEDS: POTASSIUM CHLORIDE 20 MEQ TAB 40 MEQ PO (14:14)
[2022-01-30] MEDS: METOCLOPRAMIDE 10 MG/2 ML INJ IV (14:41)
[2022-01-30 14:42] LABS: Bilirubin Urine UA NEGATIVE (NEGATIVE); Color Urine UA YELLOW; Glucose Urine UA NEGATIVE (Negative); Ketones Urine UA 3+ (NEGATIVE); Leukocyte Esterase Urine UA NEGATIVE (NEGATIVE); Nitrite Urine UA NEGATIVE (Negative); Occult Blood Urine UA NEGATIVE (Negative); Protein Urine UA 2+ (Negative); Specific Gravity Urine UA >=1.030 (1.000-1.035); Urobilinogen Urine UA 0.2 E.U./dL (0.2)
[2022-01-30 14:48] LABS: Procalcitonin < 0.03 ng/mL (<0.5)
[2022-01-30 14:53] LABS: Appearance Urine UA Cloudy; pH Urine UA 5.5 (4.5-8.0)
[2022-01-30 14:54] LABS: RBC Urine None Seen (0-5/HPF)
[2022-01-30 14:55] LABS: Bacteria Urine Moderate (10-30); Culture Indicated Urine Cult Not Indicated; Squamous Epithelial Cell Urine >30 /HPF (0-5/HPF); WBC Urine 5-10/HPF (0-5/HPF)
== END 2022-01-30 16:59 | disposition home or self-care (01) ==
PROVIDERS: Emergency Provider Nurse Practitioner Critical Care Medicine; PCP Obstetrics & Gynecology
DX: O21.0 Mild hyperemesis gravidarum (principal); Z3A.27 27 weeks gestation of pregnancy
CPT/HCPCS: 36415; 80053; 81001; 83735; 84145; 85007; 85025; 87210; 96361; 96374; 96375; 96376; 99284; C9113; J2405; J2765

== ENCOUNTER → 2022-03-29 16:45 | Outpatient (CLI) | payer OTHER, MEDICAID, SELFPAY ==
[2021-11-19 14:40] VITALS: BMI 30.2
[2022-03-30 14:00] LABS: Strep Grp B PCR NEG for Grp B Strep
== END ==
PROVIDERS: Visit Provider Obstetrics & Gynecology
DX: Z34.83 Encounter for supervision of other normal pregnancy, third trimester (principal); Z3A.36 36 weeks gestation of pregnancy
CPT/HCPCS: 87653

== ENCOUNTER 2022-04-06 12:14 | Outpatient (CLI) | payer OTHER, MEDICAID, SELFPAY ==
[2021-11-19 14:40] VITALS: BMI 30.2
[2022-04-06 13:21] LABS: Add Manual Diff / Slide Review NO; Basophils Absolute Auto 100 /uL (0-100); Basophils Percent Auto 0.8 % (0-2); Eosinophils Absolute Auto 200 /uL (0-450); Eosinophils Percent Auto 2.2 % (2-4); Hematocrit 30.5 % (36-46); Hemoglobin 10.1 g/dL (12.0-16.0); Lymphocytes Absolute Auto 2100 /uL (1100-4500); Lymphocytes Percent Auto 19.4 % (25-40); Mean Corpuscular HGB Conc 33.3 % (30-36); Mean Corpuscular Hemoglobin 27.8 PG (26-34); Mean Corpuscular Volume 83.5 fL (80-100); Monocytes Absolute Auto 700 /uL (0-900); Monocytes Percent Auto 5.9 % (3-14); Neutrophils Absolute Auto 7900 /uL (1500-7000); Neutrophils Percent Auto 71.7 % (50-75); Platelet Count 353 X10^3/uL (150-400); Red Blood Cell Count 3.65 X10^6/uL (4.0-5.2); Red Cell Distribution Width 14.3 % (11.6-14.8)
[2022-04-06 13:39] LABS: Aspartate Aminotransferase 41 IU/L (14-36); BUN Creatinine Ratio 7.5 (6-22); Blood Urea Nitrogen 6 mg/dL (7-17); Estimated Glomerular Filt Rate > 60 mL/min (>60); Uric Acid 7.1 mg/dL (2.5-6.2)
== END 2022-04-06 14:00 | disposition home or self-care (01) ==
LOC: LABOR 12:36 → OB 04-08 07:23
PROVIDERS: Referring Provider Obstetrics & Gynecology; Visit Provider Obstetrics & Gynecology
DX: O13.3 Gestational [pregnancy-induced] hypertension without significant proteinuria, third trimester (principal); O47.1 False labor at or after 37 completed weeks of gestation; Z3A.37 37 weeks gestation of pregnancy
CPT/HCPCS: 59025; 84450; 84550; 85025; G0378; G0379

== ENCOUNTER 2022-04-09 10:48 | Outpatient (CLI) | payer OTHER, MEDICAID, SELFPAY ==
[2021-11-19 14:40] VITALS: BMI 30.2
== END 2022-04-09 11:40 | disposition home or self-care (01) ==
LOC: LABOR 11:10 → OB 04-13 08:36
PROVIDERS: Referring Provider Obstetrics & Gynecology; Visit Provider Obstetrics & Gynecology
DX: O13.3 Gestational [pregnancy-induced] hypertension without significant proteinuria, third trimester (principal); Z3A.37 37 weeks gestation of pregnancy
CPT/HCPCS: 59025; G0378; G0379

== ENCOUNTER 2022-04-15 16:40 | Inpatient (IN) | payer OTHER, MEDICAID, SELFPAY ==
[2021-11-19 14:40] VITALS: BMI 30.2
[2022-04-15 17:50] VITALS: BP 177/103; PULSE 69
[2022-04-15] MEDS: LABETALOL 20 MG/4 ML SYRINGE IV (17:50)
[2022-04-15] MEDS: LACTATED RINGERS 1,000 ML 100 ML IV (17:52)
[2022-04-15 17:55] LABS: Ur Creatinine Normal (Normal); Ur Specific Gravity Normal (Normal); Urine Tetrahydrocannabinol Positive (Negative); Urine pH Normal (Normal)
[2022-04-15 17:56] LABS: UR Morphine/Opiate cutoff 300 Negative (Negative); Urine Amphetamines Negative (Negative); Urine Barbiturates Negative (Negative); Urine Benzodiazepines Negative (Negative); Urine Cocaine Negative (Negative); Urine MDMA Negative (Negative); Urine Methadone Negative (Negative); Urine Methamphetamines Negative (Negative); Urine Oxycodone Negative (Negative); Urine Phencyclidine Negative (Negative); Urine Tricyclic Antidepressant Negative (Negative)
[2022-04-15 17:57] LABS: Add Manual Diff / Slide Review NO; Basophils Absolute Auto 100 /uL (0-100); Basophils Percent Auto 0.3 % (0-2); Eosinophils Absolute Auto 0 /uL (0-450); Eosinophils Percent Auto 0.1 % (2-4); Hematocrit 36.6 % (36-46); Hemoglobin 12.1 g/dL (12.0-16.0); Lymphocytes Absolute Auto 800 /uL (1100-4500); Mean Corpuscular HGB Conc 33.1 % (30-36); Mean Corpuscular Hemoglobin 27.4 PG (26-34); Mean Corpuscular Volume 82.8 fL (80-100); Monocytes Absolute Auto 400 /uL (0-900); Monocytes Percent Auto 1.9 % (3-14); Neutrophils Absolute Auto 18200 /uL (1500-7000); Neutrophils Percent Auto 93.7 % (50-75); Red Blood Cell Count 4.42 X10^6/uL (4.0-5.2); Red Cell Distribution Width 14.7 % (11.6-14.8); White Blood Cell Count 19.4 X10^3/uL (4.5-11.0)
[2022-04-15 18:19] LABS: Platelet Count 432 X10^3/uL (150-400)
[2022-04-15 18:24] VITALS: BP 206/105; PULSE 62
[2022-04-15] MEDS: LABETALOL 20 MG/4 ML SYRINGE 40 MG IV (18:24)
--- NOTE | 2022-04-15 18:31 | P.HPOB_ITS ---
OB HPI Date/Time Date of admission: 04/15/22 Date Patient Seen: 04/15/22 Time Patient Seen: 18:32 History of Present Condition Chief complaint: FLORES Calculator Estimated Delivery Date Method Current WG Current Estimate 04/26/22 LMP (Certain) 38w 3d Other Estimates 04/22/22 Ultrasound #1 39w 0d 04/23/22 Ultrasound #2 38w 6d Estimated Gestational Age (weeks): 38+3 : 4 Para: 1 care: good care, initiated at week # (10), number of visits (10) and pounds weight gain (39) Dating criteria OB: LMP confirmed by 1st trimester US Ultrasounds: normal 1st trimester US and normal mid trimester US Obstetrical complications: hyperemesis Medical complications OB: none Indications Indication for induction OB: gestational HTN/pre-eclampsia Preadmission Labs Last OB Lab Results: Blood Type O Positive 10/31/20 12:55 Antibody Screen Pending 04/15/22 17:41 Hematocrit 36.6 % (36-46) 04/15/22 17:41 Hemoglobin 12.1 g/dL (12.0-16.0) 04/15/22 17:41 Group B Streptococcus (PCR) Neg for grp b strep 03/29/22 16:45 -: Chlamydia screen: negative and Gonorrhea screen: negative Prior (ies) Past Pregnancies Del. Date GA/Weeks Labor Lgth Wt Sex Route Outcome Anesthesia Place Delv Breastfeed Preg Comp Name 03/12/11 38 1 5 lb 13 oz Male vaginal live - full te rm none IH w Dr. Berrios 3 days, low supply to formula none Hardeep 03/09/18 6 spontaneous 09/09/20 elective elective Delivery Date: 03/12/11 Last Updated by: Belén Jaime R.N. Lots of nausea during . SROM without strong contractions, Fast labor: from time contractions started strongly to baby was 1 hour. Evaluation Evaluation Baseline heart rate: 130 Variability: Moderate (11-25) monitor accelerations: Present Monitor Decelerations: Absent Contraction Frequency (minutes): 7 Uterine Contraction Intensity: Mild Status: Category l Dilation (cm): 1.5 Effacement (%): 85 station: -1 Position of cervix: anterior Consistency: medium [facility] Medical History Chronic eczema (~2014) 2 Hyperemesis affecting , antepartum (~2020) Vaginal delivery (~2010) Surgical History History of placement of ear tubes (~2006) S/P tonsillectomy and adenoidectomy (~2006) [place] teeth extracted (~2019) Family History Mother No problems noted. Father Family history unknown Grandmother Multiple sclerosis Grandfather S/P CABG x 3 Hyperlipidemia Alcoholic Grandmother Cancer Grandfather No problems noted. Social History marital status: unmarried,living together number of children: 2 household members: significant other, family and children lives independently: Yes caregiver/support person: No pets and animals: Yes (2 dogs, 3 sheep, 50 pigs, chicken, ducks, geese: aware. ) education level: high school occupational status: unemployed (Left job in Jun due to vaccine mandate. 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 special mallory needs: No seatbelt use: always do you feel safe at home: Yes Smoking Status: Never smoker second hand exposure: No alcohol intake: former substance use type: marijuana (Quit with . Previously was a daily smoker. ) during the past year weight has: decreased > 10 lbs (lost 12 lbs r/t hyperemesis.) well-balanced diet: rarely or never (Week 4 until present: many days she can't keep anything down. Yesterday was first time she ate in a while.) daily servings fruits/ve-1 (1-2) caffeine: No Type(s) of exercise: walking (Normally walks regularly, but last 6 weeks has felt too poorly. ) frequency: 3-4 times per week duration: 45-60 minutes/day Meds Home Medications and Allergies Home Medications Medication Instructions Recorded Confirmed Type vit no.133-ferrous 1 cap PO QAM 03/09/18 04/06/22 History fumarate 28 mg-folic acid 800 mcg tablet () promethazine 12.5 mg rectal 12.5 mg LA Q6HR PRN Nausea #10 ea 11/20/21 04/06/22 Rx suppository metoclopramide HCl 10 mg 10 mg PO Q6H PRN nausea and 03/15/22 04/06/22 Rx disintegrating tablet vomiting #20 tabs ondansetron 4 mg disintegrating 4 mg PO Q6H PRN nausea and 03/15/22 04/06/22 Rx tablet vomiting #30 tabs Allergies Allergy/AdvReac Type Severity Reaction Status Date / Time hydrocodone [From Vicodin] AdvReac Vomiting Verified 04/15/22 17:30 OB Exam Narrative Exam Narrative: Generally: Patient lying on her back, having mild contractions, no acute distress Lungs: Clear to auscultation bilaterally Cardiovascular: Regular rate and rhythm Fundal height: 38 cm Estimated weight: 6-1/2 lb Extremities: 1+ pitting edema to the knees, 2+ DTRs, 1 beat of clonus Objective Labs Result Diagrams: 04/15/22 17:41 04/15/22 17:41 Labs: Laboratory Results - last 24 hr 04/15/22 04/15/22 17:33 17:41 WBC 19.4 H RBC 4.42 Hgb 12.1 Hct 36.6 MCV 82.8 MCH 27.4 MCHC 33.1 RDW 14.7 Plt Count 432 H Neut % (Auto) 93.7 H Lymph % (Auto) 4.0 L [place] % (Auto) 1.9 L Eos % (Auto) 0.1 L Baso % (Auto) 0.3 Neut # (Auto) 26619 H Lymph # (Auto) 800 L [place] # (Auto) 400 Eos # (Auto) 0 Baso # (Auto) 100 U Opiates 300ng/mL cut Negative Ur Oxycodone Screen Negative Urine Methadone Screen Negative Ur Barbiturates Screen Negative U Tricyclic Antidepress Negative Ur Phencyclidine Scrn Negative Ur Amphetamines Screen Negative U Methamphetamines Scrn Negative Ur MDMA Scrn (Ecstasy) Negative U Benzodiazepines Scrn Negative Urine Cocaine Screen Negative U Marijuana (THC) Screen Positive H Assessment and Plan Assessment and Plan Assessment and Plan narrative: Assessment: 32-year-old 4 para 1 at 38 and 3 seventh weeks gestation with severe preeclampsia GBS negative Platelets normal, remainder of the labs pending Plan: IV labetalol 20 mg x 1, repeat in 20 minutes with 40 mg IV if blood pressure not back into normal range Magnesium sulfate 4 g load, 2 g maintenance per hour Pitocin per protocol 1 David balloon Seizure precautions Time Spent with Patient Total time spent with greater than 50% in coordination of care (as documented) at patient's floor/unit and/or counseling patient:: 25 - 35 minutes
[2022-04-15 18:32] LABS: COVID19 -Nasal RAPID Negative (Negative)
[2022-04-15] MEDS: MAGNESIUM SULFATE 4 GM/100 ML PIGGYBACK IV (18:37)
[2022-04-15] MEDS: fentaNYL 100 MCG/2 ML INJ IV (18:48)
[2022-04-15 18:51] LABS: Aspartate Aminotransferase 35 IU/L (14-36); BUN Creatinine Ratio 9.6 (6-22); Blood Urea Nitrogen 8 mg/dL (7-17); Estimated Glomerular Filt Rate > 60 mL/min (>60); Uric Acid 6.6 mg/dL (2.5-6.2)
[2022-04-15 18:53] LABS: Creatinine Urine Random 258.1 mg/dL; Protein (Total) Urine Random 29 mg/dL (0-12); Protein Creatinine Ratio Urine 0.11 GRAM/24H
[2022-04-15] MEDS: MAGNESIUM SULFATE 20 GM/500 ML IV.SOLN IV (18:58)
[2022-04-15 19:22] VITALS: BP 216/116
[2022-04-15] MEDS: OXYTOCIN PREMIX 30 UNIT/500 ML PLAST..BAG IV (20:57)
[2022-04-16] MEDS: LACTATED RINGERS 1,000 ML 100 ML IV ×3 (00:56→08:00)
[2022-04-16 01:29] LABS: Magnesium 6.2 mg/dL (1.6-2.3)
[2022-04-16] MEDS: MAGNESIUM SULFATE 20 GM/500 ML IV.SOLN IV ×2 (04:06→14:05)
[2022-04-16] MEDS: ONDANSETRON 4 MG/2 ML INJ IV (09:34)
--- NOTE | 2022-04-16 10:05 | PM.OBPNLAB ---
Date/Time Date Patient Seen: 04/16/22 Time Patient Seen: 10:05 Pain Control Pain control: epidural Comments: Blood pressures have been stable in the 130s over 80s. RN is having difficult monitoring baby and contractions. Pelvic Exam Dilation (cm): 5 Effacement (%): 80 station: -1 Amniotic membrane status: Intact Contractions Contractions on admission: irregular Monitor mode: External Pitocin rate (mU/min): 8 Contraction frequency (min): 5 Contraction duration (min): 1 Contraction intensity: Moderate Status status: Category l Heart Rate Baseline: 130 Monitor Accelerations: Present Monitor Decelerations: Absent Monitor Variability: Moderate Assessment and Plan Assessment: active labor and induction ongoing Comments: IUPC placed scalp electrode placed
[2022-04-16] MEDS: FENT 2MCG/ML BUPIV 0.125% EPI 200 MCG/100 ML PLAST..BAG 8 MCG EPIDURAL (14:04)
[2022-04-16] MEDS: METOCLOPRAMIDE 10 MG/2 ML INJ IV (14:15)
[2022-04-16 14:45] LABS: Hemoglobin 11.8 g/dL (12.0-16.0); Mean Corpuscular HGB Conc 32.9 % (30-36); Mean Corpuscular Hemoglobin 27.4 PG (26-34); Mean Corpuscular Volume 83.3 fL (80-100); Platelet Count 481 X10^3/uL (150-400); Red Blood Cell Count 4.32 X10^6/uL (4.0-5.2); Red Cell Distribution Width 15.2 % (11.6-14.8); White Blood Cell Count 17.6 X10^3/uL (4.5-11.0)
--- NOTE | 2022-04-16 14:58 | PM.OBPNLAB ---
Date/Time Date Patient Seen: 04/16/22 Time Patient Seen: 13:30 Pain Control Pain control: epidural Pelvic Exam Dilation (cm): 5 Effacement (%): 80 station: -2 Amniotic membrane status: Ruptured Comments: IUPC and scalp electrode in place Contractions Monitor mode: External Pitocin rate (mU/min): 14 Contraction frequency (min): 5 Contraction duration (min): 1 Contraction pattern: Regular Contraction intensity: Strong/Firm Intrauterine tone measurement: 200 Status status: Category l Heart Rate Baseline: 130 Monitor Accelerations: Present Monitor Decelerations: Late (Few) Monitor Variability: Moderate Assessment and Plan Assessment: induction ongoing Comments: Try to increase the Pitocin to get the contractions 2-3 minutes apart Side to side with peanut ball
[2022-04-16] MEDS: miSOPROStoL 200 MCG TABLET 800 MCG PR (18:22)
[2022-04-16] MEDS: OXYTOCIN PREMIX 30 UNIT/500 ML PLAST..BAG 200 UNIT IV (19:42)
[2022-04-16 20:07] LABS: Aspartate Aminotransferase 40 IU/L (14-36); Estimated Glomerular Filt Rate > 60 mL/min (>60)
[2022-04-16 20:13] LABS: Magnesium 8.4 mg/dL (1.6-2.3)
[2022-04-16] MEDS: IBUPROFEN 600 MG TABLET PO (21:29)
[2022-04-16 21:35] LABS: Magnesium 7.6 mg/dL (1.6-2.3)
--- NOTE | 2022-04-16 22:22 | P.PCNOB_ITS ---
Events: Pre-Eclampsia and Labor Augmentation Labor & Delivery Delivery date: 04/16/22 Cervical ripening method: none Delivery augmentation: rupture of membranes and pitocin Delivery monitor: external FHT, external uterine, internal FHT and internal uterine Route of delivery: Episiotomy description: None L&D Laceration Description: Labial (bilat superficial) and Superficial (vaginal) Delivery repair: chromic Estimated blood loss (mL): 100 Quantitative Blood Loss: 100 Anesthesia Type: Epidural Complications: None Narrative: Patient complete and pushed for 20 minutes. At 4:27 p.m., a live male delivered spontaneously over an intact perineum. There was a tight nuchal cord x1 which was cut on the perineum. The remainder of the body delivered without difficulty and was placed on mom's abdomen. Pitocin was given in the IV fluids. The placenta delivered intact with a three-vessel cord at 4:31 p.m.. Bilateral labial and vaginal superficial lacerations were repaired with 4-0 chromic. Hemostasis was achieved. Apgars 8 at 1 minute and 9 at 5 minutes. Estimated blood loss 100 cc. weight 6 lb. . Mom and stable to recovery. [place] Baby 1: Infant gender: Male Presentation: vertex Position: Left Occiput Anterior Placenta delivery description: Spontaneous and Normal Configuration Cord Vessel Description: 3 Vessels, Nuchal Cord (x1) and Clamped/Cut (on the perineum) score (1 min): 8 score (5 min): 9 weight: 6 lb Plan for aftercare: Other (Con't MgSO4, labs, BP management)
[2022-04-17] MEDS: LACTATED RINGERS 1,000 ML 100 ML IV ×3 (00:01→15:45)
[2022-04-17] MEDS: MAGNESIUM SULFATE 20 GM/500 ML IV.SOLN IV (02:44)
[2022-04-17 03:28] LABS: HIV 1 & 2 Ab/Ag 4th Gen Combo NEGATIVE (NEGATIVE); Hep C Virus Ab w/Reflex Quant NEGATIVE s/c (NEGATIVE); Hepatitis B Surface Antigen NEGATIVE s/c (NEGATIVE)
[2022-04-17 03:53] LABS: Magnesium 7.6 mg/dL (1.6-2.3)
[2022-04-17 03:54] LABS: Add Manual Diff / Slide Review NO; Basophils Absolute Auto 100 /uL (0-100); Basophils Percent Auto 0.4 % (0-2); Eosinophils Absolute Auto 100 /uL (0-450); Eosinophils Percent Auto 0.4 % (2-4); Hematocrit 34.2 % (36-46); Hemoglobin 11.3 g/dL (12.0-16.0); Lymphocytes Absolute Auto 1900 /uL (1100-4500); Lymphocytes Percent Auto 10.4 % (25-40); Mean Corpuscular Hemoglobin 27.1 PG (26-34); Mean Corpuscular Volume 82.2 fL (80-100); Monocytes Absolute Auto 1100 /uL (0-900); Monocytes Percent Auto 6.1 % (3-14); Neutrophils Absolute Auto 15100 /uL (1500-7000); Neutrophils Percent Auto 82.7 % (50-75); Platelet Count 424 X10^3/uL (150-400); Red Blood Cell Count 4.16 X10^6/uL (4.0-5.2); Red Cell Distribution Width 14.6 % (11.6-14.8); White Blood Cell Count 18.3 X10^3/uL (4.5-11.0)
[2022-04-17] MEDS: IBUPROFEN 600 MG TABLET PO ×3 (04:30→18:21)
[2022-04-17 06:18] LABS: RPR Screen Non Reactive (Non Reactive)
[2022-04-17 08:15] LABS: Varicella IgG Antibody 420 index (Immune >165)
[2022-04-17] MEDS: PRENATAL VIT,CALC/IRON/FOLIC 1 TABLET 1 TAB PO (08:25)
[2022-04-17] MEDS: DOCUSATE 100 MG CAPSULE PO (08:25)
[2022-04-17] MEDS: NIFEdipine 30 MG TAB ER PO (09:11)
[2022-04-17] MEDS: LABETALOL 100 MG TABLET 200 MG PO ×3 (09:11→21:37)
[2022-04-17 10:12] LABS: Magnesium 6.4 mg/dL (1.6-2.3)
[2022-04-17 10:30] VITALS: BP 128/75; PULSE 77
--- NOTE | 2022-04-17 11:39 | PM.OBPN.1 ---
Subjective - OB Subjective Patient comments: no complaints [place] baby status: doing well and nursing well feeding status: exclusively breast feeding Narrative: No headache or blurred vision. Patient's nausea is gone. She is feeling much better. Date Patient Seen: 04/17/22 Time Patient Seen: 11:40 Interval history: Patient is day # 1 status post spontaneous vaginal delivery after augmentation of labor with severe preeclampsia. Patient still on magnesium sulfate. The dose lowered to 1 gram/hour due to high magnesium level. She has no headache or visual changes. No right upper quadrant pain. She feels much better. Exam Narrative Exam Narrative: Generally: Patient is sitting up in bed, no acute distress Lungs: Clear to auscultation bilaterally Cardiovascular: Regular rate and rhythm Fundus: Firm at U -1 Perineum: Edematous Extremities: 1+ edema, 1+ DTR, no clonus Objective Labs Result Diagrams: 04/17/22 03:31 04/16/22 14:24 Labs: Laboratory Results - last 24 hr 04/16/22 04/16/22 04/16/22 00:40 00:40 00:40 WBC RBC Hgb Hct MCV MCH MCHC RDW Plt Count Neut % (Auto) Lymph % (Auto) [place] % (Auto) Eos % (Auto) Baso % (Auto) Neut # (Auto) Lymph # (Auto) [place] # (Auto) Eos # (Auto) Baso # (Auto) Creatinine Estimated GFR Uric Acid Magnesium AST Serum VDRL Non reactive Hep Bs Antigen Negative Hepatitis C Antibody Negative HIV 1&2 Ab/P24 Ag 4thGn Negative VZV IgG Antibody 420 04/16/22 04/16/22 04/16/22 14:24 14:24 20:58 WBC 17.6 H RBC 4.32 Hgb 11.8 L Hct 36.0 MCV 83.3 MCH 27.4 MCHC 32.9 RDW 15.2 H Plt Count 481 H Neut % (Auto) Lymph % (Auto) [place] % (Auto) Eos % (Auto) Baso % (Auto) Neut # (Auto) Lymph # (Auto) [place] # (Auto) Eos # (Auto) Baso # (Auto) Creatinine 0.91 Estimated GFR > 60 Uric Acid 7.0 H Magnesium 8.4 H* 7.6 H* AST 40 H Serum VDRL Hep Bs Antigen Hepatitis C Antibody HIV 1&2 Ab/P24 Ag 4thGn VZV IgG Antibody 04/17/22 04/17/22 04/17/22 03:31 03:31 09:40 WBC 18.3 H RBC 4.16 Hgb 11.3 L Hct 34.2 L MCV 82.2 MCH 27.1 MCHC 33.0 RDW 14.6 Plt Count 424 H Neut % (Auto) 82.7 H Lymph % (Auto) 10.4 L [place] % (Auto) 6.1 Eos % (Auto) 0.4 L Baso % (Auto) 0.4 Neut # (Auto) 60311 H Lymph # (Auto) 1900 [place] # (Auto) 1100 H Eos # (Auto) 100 Baso # (Auto) 100 Creatinine Estimated GFR Uric Acid Magnesium 7.6 H* 6.4 H* AST Serum VDRL Hep Bs Antigen Hepatitis C Antibody HIV 1&2 Ab/P24 Ag 4thGn VZV IgG Antibody Assessment & Plan Plan day: 1 Comments: IV Lasix Recheck labs at 6:00 p.m. Started oral blood pressure medications Time Spent With Patient Time: Total time spent is greater than 50% in coordination of care (as documented) at patient's floor/unit and/or counseling patient: Time with patient: 15-24 minutes
[2022-04-17] MEDS: FUROSEMIDE 20 MG/2 ML VIAL IV (12:33)
[2022-04-17 15:44] VITALS: BP 122/74; PULSE 69
[2022-04-17 16:31] VITALS: BP 120/56; PULSE 67
[2022-04-17 18:27] LABS: Add Manual Diff / Slide Review NO; Basophils Absolute Auto 100 /uL (0-100); Basophils Percent Auto 0.8 % (0-2); Eosinophils Absolute Auto 100 /uL (0-450); Eosinophils Percent Auto 0.9 % (2-4); Hemoglobin 9.5 g/dL (12.0-16.0); Lymphocytes Absolute Auto 2200 /uL (1100-4500); Lymphocytes Percent Auto 18.4 % (25-40); Mean Corpuscular Hemoglobin 27.8 PG (26-34); Mean Corpuscular Volume 81.9 fL (80-100); Monocytes Absolute Auto 1000 /uL (0-900); Monocytes Percent Auto 8.1 % (3-14); Neutrophils Absolute Auto 8700 /uL (1500-7000); Neutrophils Percent Auto 71.8 % (50-75); Platelet Count 342 X10^3/uL (150-400); Red Blood Cell Count 3.42 X10^6/uL (4.0-5.2); Red Cell Distribution Width 14.6 % (11.6-14.8); White Blood Cell Count 12.1 X10^3/uL (4.5-11.0)
[2022-04-17 18:37] LABS: Alanine Aminotransferase 14 IU/L (<35); BUN Creatinine Ratio 8.9 (6-22); Blood Urea Nitrogen 9 mg/dL (7-17); Carbon Dioxide 26 mmol/L (22-32); Chloride 102 mmol/L (98-107); Estimated Glomerular Filt Rate > 60 mL/min (>60); Glucose 100 mg/dL (70-100); HEMOLYSIS < 15 (0-50); Potassium 3.9 mmol/L (3.4-5.1); Sodium 132 mmol/L (137-145); Uric Acid 7.1 mg/dL (2.5-6.2)
[2022-04-17 18:55] LABS: Calcium 6.2 mg/dL (8.4-10.2)
[2022-04-17] MEDS: CALCIUM CARBONATE 500 MG TAB 1000 MG PO (19:42)
[2022-04-17 21:37] VITALS: BP 112/69; PULSE 79
[2022-04-17] MEDS: ACETAMINOPHEN 325 MG TABLET 650 MG PO (22:53)
[2022-04-18] MEDS: IBUPROFEN 600 MG TABLET PO ×2 (00:04→14:19)
[2022-04-18 06:42] LABS: Alanine Aminotransferase 14 IU/L (<35); Albumin 2.7 g/dL (3.5-5.0); Albumin Globulin Ratio 1.1 (1.0-2.8); Alkaline Phosphatase 92 U/L (38-126); Aspartate Aminotransferase 41 IU/L (14-36); BUN Creatinine Ratio 11.6 (6-22); Bilirubin Total 0.3 mg/dL (0.2-1.3); Blood Urea Nitrogen 10 mg/dL (7-17); Calcium 7.3 mg/dL (8.4-10.2); Carbon Dioxide 28 mmol/L (22-32); Chloride 102 mmol/L (98-107); Estimated Glomerular Filt Rate > 60 mL/min (>60); Globulin 2.5 g/dL (1.7-4.1); Glucose 73 mg/dL (70-100); HEMOLYSIS < 15 (0-50); Sodium 134 mmol/L (137-145); Total Protein 5.2 g/dL (6.3-8.2)
[2022-04-18 08:31] VITALS: BP 185/80; PULSE 58
[2022-04-18] MEDS: DOCUSATE 100 MG CAPSULE PO (08:31)
[2022-04-18] MEDS: PRENATAL VIT,CALC/IRON/FOLIC 1 TABLET 1 TAB PO (08:31)
[2022-04-18] MEDS: NIFEdipine 30 MG TAB ER PO (08:31)
[2022-04-18] MEDS: LABETALOL 100 MG TABLET 200 MG PO ×3 (08:31→21:25)
--- NOTE | 2022-04-18 12:46 | P.DS_ITS ---
Discharge Providers Provider Date of admission: 04/15/22 16:40 Discharge Date: 04/18/22 Consults: 04/17/22 16:55 Consult to Surveying Teacher Routine Comment: Discharge provider: Connie Ventura MD Summary Hospital Course Date Patient Seen: 04/18/22 Time Patient Seen: 12:48 Diagnoses: 38-,4/7 weeks gestation Severe preeclampsia Spontaneous vaginal delivery Hospital Course: Patient is a 32-year-old 4 para 2 day # 2 status post spontaneous vaginal delivery. She presented with severe preeclampsia with blood pressures in the 200s over 120s range. She was started on magnesium sulfate. She progressed in labor to about 5 cm. Pitocin augmentation was initiated. The next morning she had not progressed and artificial rupture of membranes was performed. She had a spontaneous vaginal delivery without complication. The magnesium sulfate was continued for 24 hours after delivery. Her labs remained stable. Her blood pressures were labile. She is doing well on XL 30 nifedipine and 200 mg of labetalol t.i.d.. going okay. Bleeding tapering. No headache or visual changes. She diuresed several liters of fluid yesterday and is feeling better. Peripartum Data Infant Delivery Method: Natural Vaginal Laceration Description: Superficial (Bilateral labial and vaginal) Episiotomy description: None Procedures: Magnesium sulfate seizure prophylaxis Epidural analgesia Pitocin augmentation of labor Artificial rupture of membranes Spontaneous vaginal delivery Superficial laceration repairs complications: other (Labile blood pressure) 1: Gender: Male Disposition of : home Status at Discharge Cognitive/behavioral status at discharge: oriented Functional status at discharge: independent ambulation Overall status at discharge: patient is progressing back to baseline Time Spent with Patient Time attestation: Total time spent providing and/or coordinating discharge services: Time spent: Less than 30 minutes Objective Labs Result Diagrams: 04/17/22 18:05 04/18/22 06:15 Labs: Laboratory Results - last 24 hr 04/17/22 04/17/22 04/18/22 18:05 18:05 06:15 WBC 12.1 H RBC 3.42 L Hgb 9.5 L Hct 28.0 L MCV 81.9 MCH 27.8 MCHC 34.0 RDW 14.6 Plt Count 342 Neut % (Auto) 71.8 Lymph % (Auto) 18.4 L [place] % (Auto) 8.1 Eos % (Auto) 0.9 L Baso % (Auto) 0.8 Neut # (Auto) 8700 H Lymph # (Auto) 2200 [place] # (Auto) 1000 H Eos # (Auto) 100 Baso # (Auto) 100 Sodium 132 L 134 L Potassium 3.9 4.0 Chloride 102 102 Carbon Dioxide 26 28 BUN 9 10 Creatinine 1.01 0.86 Estimated GFR > 60 > 60 BUN/Creatinine Ratio 8.9 11.6 Glucose 100 73 Uric Acid 7.1 H Calcium 6.2 L* 7.3 L Total Bilirubin 0.3 AST 41 H ALT 14 14 Alkaline Phosphatase 92 Total Protein 5.2 L Albumin 2.7 L Globulin 2.5 Albumin/Globulin Ratio 1.1 Exam Vital Signs (past 8 hours): - 04/18/22 08:31 Pulse Rate 58 L Blood Pressure 185/80 H Narrative Exam Narrative: Generally: Patient is sitting up in bed, holding , no acute distress Lungs: Clear to auscultation bilaterally Cardiovascular: Regular rate and rhythm Fundus: Firm at U -1 Extremities: 1+ edema, 1+ DTRs, negative [place], no clonus Discharge Plan Discharge Plan Patient Disposition: Home Provider Discharge Comment: Call with fever, chills, or bleeding vaginally more than a pad in an hour Call with persistent headache, blurred vision, or spots before eyes Call with right upper quadrant pain Tylenol 650 mg every 6 hours as needed for pain Ibuprofen 600 mg every 6 hours as needed for cramping Discharge orders & Medications Prescriptions: New nifedipine 30 mg tablet extended release 30 mg PO DAILY Qty: 30 0RF labetalol 200 mg tablet 200 mg PO TID Qty: 90 2RF Continued 28-800 mg-mcg Tablet 1 cap PO QAM Discontinued metoclopramide HCl 10 mg tablet,disintegrating 10 mg PO Q6H PRN (Reason: nausea and vomiting) Qty: 20 2RF ondansetron 4 mg tablet,disintegrating 4 mg PO Q6H PRN (Reason: nausea and vomiting) Qty: 30 0RF promethazine 12.5 mg Suppository 12.5 mg HI Q6HR PRN (Reason: Nausea) Qty: 10 2RF No Action hydrocortisone [Anusol-HC] 2.5 % cream with perineal applicator 1 applic HI QD-BID PRN (Reason: hemorrhoids) Qty: 30 0RF Follow up/Referrals: Connie Ventura MD [Physician] - 1 Week (BP Check: April 26 @ 1:45pm (check in at 1:30pm) 6 Week PP: May 28 @ 10:15am (check in at 10:00 am)) Diet/Activity/Treatments Diet: Regular Activity: Take it easy over the next 2 weeks Nothing in the vagina for 6 weeks Skin/Wound/Dressing Care Report to your healthcare provider any signs of infection, such as:: chills, fever, increased pain and unusual drainage Visit Report/Discharge Packet Instructions: DI for Labor and Delivery, Vaginal , DI for Pre-eclampsia Stand Alone Forms: Discharge: Care
--- NOTE | 2022-04-18 13:00 | PM.OBPN.1 ---
Subjective - OB Subjective Patient comments: other (headache this morning) [place] baby status: doing well [place] feeding status: breast and bottle feeding Date Patient Seen: 04/18/22 Time Patient Seen: 13:01 Exam Vital Signs (past 8 hours): - 04/18/22 08:31 Pulse Rate 58 L Blood Pressure 185/80 H Narrative Exam Narrative: Generally: Patient is sitting up in bed, no acute distress Fundus: Firm at U -2 Extremities: 1+ DTRs, trace to 1+ edema Objective Labs Result Diagrams: 04/17/22 18:05 04/18/22 06:15 Labs: Laboratory Results - last 24 hr 04/17/22 04/17/22 04/18/22 18:05 18:05 06:15 WBC 12.1 H RBC 3.42 L Hgb 9.5 L Hct 28.0 L MCV 81.9 MCH 27.8 MCHC 34.0 RDW 14.6 Plt Count 342 Neut % (Auto) 71.8 Lymph % (Auto) 18.4 L [place] % (Auto) 8.1 Eos % (Auto) 0.9 L Baso % (Auto) 0.8 Neut # (Auto) 8700 H Lymph # (Auto) 2200 [place] # (Auto) 1000 H Eos # (Auto) 100 Baso # (Auto) 100 Sodium 132 L 134 L Potassium 3.9 4.0 Chloride 102 102 Carbon Dioxide 26 28 BUN 9 10 Creatinine 1.01 0.86 Estimated GFR > 60 > 60 BUN/Creatinine Ratio 8.9 11.6 Glucose 100 73 Uric Acid 7.1 H Calcium 6.2 L* 7.3 L Total Bilirubin 0.3 AST 41 H ALT 14 14 Alkaline Phosphatase 92 Total Protein 5.2 L Albumin 2.7 L Globulin 2.5 Albumin/Globulin Ratio 1.1 Assessment & Plan Plan day: 2 Comments: Increased labetalol this afternoon to 300 mg Will keep patient another day to watch blood pressure Time Spent With Patient Time: Total time spent is greater than 50% in coordination of care (as documented) at patient's floor/unit and/or counseling patient: Time with patient: 15-24 minutes
[2022-04-18] MEDS: NIFEdipine 10 MG CAPSULE PO (13:25)
[2022-04-18 21:25] VITALS: BP 118/59; PULSE 65
[2022-04-19 08:44] VITALS: BP 170/93; PULSE 69
[2022-04-19] MEDS: LABETALOL 100 MG TABLET 200 MG PO (08:44)
[2022-04-19] MEDS: NIFEdipine 30 MG TAB ER PO (08:44)
[2022-04-19] MEDS: DOCUSATE 100 MG CAPSULE PO (08:44)
[2022-04-19] MEDS: PRENATAL VIT,CALC/IRON/FOLIC 1 TABLET 1 TAB PO (08:44)
[2022-04-20 16:46] LABS: Rubella Antibody IgG 26.2 IU/mL (>15)
== END 2022-04-19 12:50 | disposition home or self-care (01) | DRG 560 ==
PROVIDERS: Obstetrics & Gynecology; Admitting Provider Obstetrics & Gynecology; Referring Provider Obstetrics & Gynecology; Visit Provider Obstetrics & Gynecology
DX: O14.14 Severe pre-eclampsia complicating childbirth (principal); O21.0 Mild hyperemesis gravidarum; Z3A.38 38 weeks gestation of pregnancy; Z37.0 Single live birth; O70.0 First degree perineal laceration during delivery; Z20.822 Contact with and (suspected) exposure to COVID-19
CPT/HCPCS: 01967; 36415; 59050; 59409; 80048; 80053; 80305; 82565; 82570; 83735; 84156; 84450; 84460; 84550; 85025; 85027; 86592; 86762; 86787; 86803; 86850; 86900; 86901; 87340; 87389; 87635; C9803; G0379; J1940; J2405; J2590; J2765; J3010; J3475; S0191

== ENCOUNTER 2024-02-22 11:28 | Emergency (ER) | payer OTHER, MEDICAID, SELFPAY ==
[2021-11-19 14:40] VITALS: BMI 30.2
[2024-02-22] VITALS (15 sets, daily range): BP systolic 160–213; BP diastolic 83–106; PULSE 46–72; RESP 16–26; TEMP 36.9; O2SAT 99–100; BMI 32.0
[2024-02-22] MEDS: ONDANSETRON 4 MG/2 ML INJ IV (11:45)
--- NOTE | 2024-02-22 11:54 | ED.ABDPAIN ---
HPI - Abdominal Pain <Jessica Mathur PA-C - Last Filed: 02/22/24 14:34> General Chief Complaint: Abdominal Pain Stated Complaint: vomiting Time Seen by Provider: 02/22/24 11:54 Source: patient Mode of arrival: Wheelchair History of Present Illness HPI narrative: This is a 34-year-old woman who presents with concern for 3-4 days of intermittent loose stools and constipation, as well as abdominal pain beginning last night with intermittent persistent nausea and vomiting. Patient states her abdominal pain was fairly severe last night but it seemed to improve so she slept it off then today it worsened and she came into the emergency department. She describes her pain as midline around her umbilicus and generalized in the abdomen. She says she has not vomited a lot but does feel quite nauseous. She did take Pepto-Bismol over the last few days and states she had some darker stools. She states she has not had trouble having bowel movements but has noted sometimes they seem more firm and sometimes they seem quite soft intermittently. She states 2 days ago she started having pain with urination and she believes she may have a urinary tract infection. Her LMP was about 3-1/2 weeks ago she states her periods are regular and she is currently on control, she is not concerned for . She has not noted any flank or back pain and has not had fevers although she has felt a little chilled today. Patient later acknowledges that she smokes marijuana daily. She states she has never had a problem with vomiting or hyperemesis related to this but did have hyperemesis gravidarum when she was a few years ago. She denies any other complaints or concerns. Related Data Home Medications Medication Instructions Recorded Confirmed vit no.133-ferrous 1 cap PO QAM 03/09/18 05/28/22 fumarate 28 mg-folic acid 800 mcg tablet () Previous Rx's Medication Instructions Recorded hydrocortisone 2.5 % topical cream 1 applic ME QD-BID PRN hemorrhoids 05/03/22 with perineal applicator #30 grams (Anusol-HC) drospirenone 3 mg-ethinyl 1 tab PO DAILY #84 tabs 08/24/22 estradiol 0.02 mg tablet (ALTAF (28)) cefdinir 300 mg capsule 300 mg PO BID 3 days #6 caps 02/22/24 metoclopramide HCl 5 mg/5 mL oral 5 mg (5 mL) PO DAILY PRN nausea 02/22/24 solution and vomiting 7 days #473 mL ondansetron 4 mg disintegrating 4 mg PO Q6H PRN nausea and 02/22/24 tablet vomiting 7 days #28 tabs Allergies Allergy/AdvReac Type Severity Reaction Status Date / Time hydrocodone [From Vicodin] AdvReac Vomiting Verified 05/28/22 10:33 Review of Systems <Jessica Mathur PA-C - Last Filed: 02/22/24 14:34> Review of Systems Narrative: See HPI Patient History <Jessica Mathur PA-C - Last Filed: 02/22/24 14:34> Medical History History of severe pre-eclampsia (~2021) Chronic eczema (~2014) Hyperemesis affecting , antepartum (~2020) 2 Vaginal delivery (~2010) Surgical History S/P tonsillectomy and adenoidectomy (~2006) History of placement of ear tubes (~2006) [place] teeth extracted (~2019) Family History Mother No problems noted. Father Family history unknown Grandmother Multiple sclerosis Grandfather S/P CABG x 3 Hyperlipidemia Alcoholic Grandmother Cancer Grandfather No problems noted. Social History marital status: unmarried,living together number of children: 2 household members: significant other, family and children lives independently: Yes caregiver/support person: No pets and animals: Yes (2 dogs, 3 sheep, 50 pigs, chicken, ducks, geese: aware. ) education level: high school occupational status: unemployed (Left job in Jun due to vaccine mandate. 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 special mallory needs: No seatbelt use: always do you feel safe at home: Yes Smoking Status: Current some day smoker second hand exposure: No alcohol intake: former substance use type: marijuana (Quit with . Previously was a daily smoker. ) during the past year weight has: decreased > 10 lbs (lost 12 lbs r/t hyperemesis.) well-balanced diet: rarely or never (Week 4 until present: many days she can't keep anything down. Yesterday was first time she ate in a while.) daily servings fruits/ve-1 (1-2) caffeine: No Type(s) of exercise: walking (Normally walks regularly, but last 6 weeks has felt too poorly. ) frequency: 3-4 times per week duration: 45-60 minutes/day Smoking Status: Current some day smoker alcohol intake frequency: other Substance Use Type: does not use Exam <Jessica Mathur PA-C - Last Filed: 02/22/24 14:34> Narrative Exam Narrative: GENERAL: [34] year old patient appears stated age. Well-developed patient, in moderate distress, uncomfortable appearing and in pain lying on her side with knees pulled up holding a emesis bag. HEAD: Atraumatic. Normocephalic. EYES: Pupils equal round and reactive. Extraocular motions intact. No scleral icterus. No injection or drainage. ENT: Nose without bleeding, purulent drainage. Airway patent. NECK: Trachea midline. Non tender CARDIOVASCULAR: Regular rate and rhythm without murmurs, gallops, or rubs. RESPIRATORY: Clear to auscultation. Breath sounds equal bilaterally. No wheezes, rales, or rhonchi. GASTROINTESTINAL: Abdomen soft, generalized tenderness, notably tender over the periumbilical region, and upper abdomen, mild suprapubic tenderness, otherwise non-tender, nondistended. EXTREMITIES: No edema or joint tenderness. BACK: Nontender without deformity or crepitance. Mild right flank tenderness, No left flank tenderness. NEURO: AOx3. SKIN: No rash or erythema of visible areas Initial Vital Signs Initial Vital Signs: Vital Signs Temperature 98.5 F 02/22/24 11:30 Pulse Rate 55 L 02/22/24 11:30 Respiratory Rate 26 H 02/22/24 11:30 Blood Pressure 193/88 H 02/22/24 11:30 Pulse Oximetry 100 02/22/24 11:30 Oxygen Delivery Method Room Air 02/22/24 11:30 <Tremayne Jorgensen DO - Last Filed: 02/22/24 14:37> Initial Vital Signs Initial Vital Signs: Vital Signs Temperature 98.5 F 02/22/24 11:30 Pulse Rate 55 L 02/22/24 11:30 Respiratory Rate 26 H 02/22/24 11:30 Blood Pressure 193/88 H 02/22/24 11:30 Pulse Oximetry 100 02/22/24 11:30 Oxygen Delivery Method Room Air 02/22/24 11:30 Course <Jessica Mathur PA-C - Last Filed: 02/22/24 14:34> Orders Ordered: ED Orders 02/22/24 11:43 Complete Blood Count AUTO DIFF Stat Comprehensive Metabolic Panel Stat Lipase Stat 02/22/24 12:00 Covid-19 + FLU A/B + RSV - PCR Stat Urine Culture Stat Urine Microscopic Stat 02/22/24 12:15 CT abdomen pelvis w con Stat 02/22/24 13:10 EKG-12 Lead Stat Ondansetron HCl (Ondansetron 4 Mg/2 Ml Inj) 4 mg IV NOW PRN PRN Reason: Nausea And Vomiting Last Admin: 02/22/24 11:45 Dose: 4 mg Documented By: OMAR Discontinued Medications Fentanyl (Fentanyl 100 Mcg/2 Ml Inj) 75 mcg 1 mcg/kg (75 mcg) IV NOW ONE Stop: 02/22/24 12:11 Last Admin: 02/22/24 12:15 Dose: 75 mcg Documented By: Sodium Chloride (Normal Saline 0.9%) 1,000 mls @ 1,000 mls/hr IV BOLUS ONE Stop: 02/22/24 12:59 Last Infusion: 02/22/24 13:26 Dose: Infused Documented By: Admin: 02/22/24 12:10 Dose: 1,000 mls/hr Documented By: Ceftriaxone Sodium 1,000 mg/ (Sodium Chloride) 100 mls @ 200 mls/hr IV NOW ONE Stop: 02/22/24 12:52 Last Infusion: 02/22/24 13:26 Dose: Infused Documented By: Admin: 02/22/24 12:56 Dose: 200 mls/hr Documented By: Ketorolac Tromethamine (Ketorolac 30 Mg/Ml Vial) 15 mg IV NOW ONE Stop: 02/22/24 13:11 Last Admin: 02/22/24 13:30 Dose: 15 mg Documented By: KB Lorazepam (Lorazepam 2 Mg/Ml Inj) 1 mg IV NOW ONE Stop: 02/22/24 13:33 Last Admin: 02/22/24 13:37 Dose: 1 mg Documented By: SHADI Vital Signs Vital signs: Vital Signs - 8 hr 02/22/24 11:30 02/22/24 11:38 02/22/24 11:43 Temperature 98.5 F Pulse Rate 55 L 55 L Respiratory Rate 26 H Blood Pressure 193/88 H 193/88 H Pulse Oximetry 100 100 Oxygen Delivery Method Room Air 02/22/24 11:43 02/22/24 11:46 02/22/24 11:46 Temperature Pulse Rate 55 L 55 L Respiratory Rate Blood Pressure 203/106 H Pulse Oximetry 100 100 Oxygen Delivery Method 02/22/24 12:00 02/22/24 12:01 02/22/24 12:01 Temperature Pulse Rate 51 L 50 L Respiratory Rate 21 Blood Pressure 213/89 H Pulse Oximetry 100 100 Oxygen Delivery Method 02/22/24 12:31 02/22/24 12:32 02/22/24 12:32 Temperature Pulse Rate 59 L Respiratory Rate 18 Blood Pressure 193/98 H Pulse Oximetry 99 100 Oxygen Delivery Method 02/22/24 13:00 02/22/24 13:00 02/22/24 13:30 Temperature Pulse Rate 67 69 Respiratory Rate 20 16 Blood Pressure 183/97 H Pulse Oximetry 99 Oxygen Delivery Method 02/22/24 13:32 02/22/24 13:32 02/22/24 14:00 Temperature Pulse Rate 46 L 67 Respiratory Rate Blood Pressure 210/92 H Pulse Oximetry 99 100 Oxygen Delivery Method 02/22/24 14:01 Temperature Pulse Rate Respiratory Rate Blood Pressure 160/83 H Pulse Oximetry Oxygen Delivery Method <Tremayne Jorgensen DO - Last Filed: 02/22/24 14:37> Orders Ordered: ED Orders 02/22/24 11:43 Complete Blood Count AUTO DIFF Stat Comprehensive Metabolic Panel Stat Lipase Stat 02/22/24 12:00 Covid-19 + FLU A/B + RSV - PCR Stat Urine Culture Stat Urine Microscopic Stat 02/22/24 12:15 CT abdomen pelvis w con Stat 02/22/24 13:10 EKG-12 Lead Stat Ondansetron HCl (Ondansetron 4 Mg/2 Ml Inj) 4 mg IV NOW PRN PRN Reason: Nausea And Vomiting Last Admin: 02/22/24 11:45 Dose: 4 mg Documented By: OMAR Discontinued Medications Fentanyl (Fentanyl 100 Mcg/2 Ml Inj) 75 mcg 1 mcg/kg (75 mcg) IV NOW ONE Stop: 02/22/24 12:11 Last Admin: 02/22/24 12:15 Dose: 75 mcg Documented By: Sodium Chloride (Normal Saline 0.9%) 1,000 mls @ 1,000 mls/hr IV BOLUS ONE Stop: 02/22/24 12:59 Last Infusion: 02/22/24 13:26 Dose: Infused Documented By: Admin: 02/22/24 12:10 Dose: 1,000 mls/hr Documented By: Ceftriaxone Sodium 1,000 mg/ (Sodium Chloride) 100 mls @ 200 mls/hr IV NOW ONE Stop: 02/22/24 12:52 Last Infusion: 02/22/24 13:26 Dose: Infused Documented By: Admin: 02/22/24 12:56 Dose: 200 mls/hr Documented By: Ketorolac Tromethamine (Ketorolac 30 Mg/Ml Vial) 15 mg IV NOW ONE Stop: 02/22/24 13:11 Last Admin: 02/22/24 13:30 Dose: 15 mg Documented By: OMAR Lorazepam (Lorazepam 2 Mg/Ml Inj) 1 mg IV NOW ONE Stop: 02/22/24 13:33 Last Admin: 02/22/24 13:37 Dose: 1 mg Documented By: SHADI Vital Signs Vital signs: Vital Signs - 8 hr 02/22/24 11:30 02/22/24 11:38 02/22/24 11:43 Temperature 98.5 F Pulse Rate 55 L 55 L Respiratory Rate 26 H Blood Pressure 193/88 H 193/88 H Pulse Oximetry 100 100 Oxygen Delivery Method Room Air 02/22/24 11:43 02/22/24 11:46 02/22/24 11:46 Temperature Pulse Rate 55 L 55 L Respiratory Rate Blood Pressure 203/106 H Pulse Oximetry 100 100 Oxygen Delivery Method 02/22/24 12:00 02/22/24 12:01 02/22/24 12:01 Temperature Pulse Rate 51 L 50 L Respiratory Rate 21 Blood Pressure 213/89 H Pulse Oximetry 100 100 Oxygen Delivery Method 02/22/24 12:31 02/22/24 12:32 02/22/24 12:32 Temperature Pulse Rate 59 L Respiratory Rate 18 Blood Pressure 193/98 H Pulse Oximetry 99 100 Oxygen Delivery Method 02/22/24 13:00 02/22/24 13:00 02/22/24 13:30 Temperature Pulse Rate 67 69 Respiratory Rate 20 16 Blood Pressure 183/97 H Pulse Oximetry 99 Oxygen Delivery Method 02/22/24 13:32 02/22/24 13:32 02/22/24 14:00 Temperature Pulse Rate 46 L 67 Respiratory Rate Blood Pressure 210/92 H Pulse Oximetry 99 100 Oxygen Delivery Method 02/22/24 14:01 Temperature Pulse Rate Respiratory Rate Blood Pressure 160/83 H Pulse Oximetry Oxygen Delivery Method MDM - Abdominal Pain <Jessica Mathur PA-C - Last Filed: 02/22/24 14:34> Differential Diagnosis Differential diagnosis: Likely abdominal pain, acute appendicitis, calculus of kidney, constipation, diverticulitis, gastroenteritis, pancreatitis and other (Urinary tract infection, pyelonephritis, colitis) Medical Records Attestation: I reviewed the patient's medical records. Lab Data Attestation: I reviewed the patient's lab results. 02/22/24 11:43 02/22/24 11:43 Labs: Lab Results 02/22/24 02/22/24 Range/Units 11:43 12:00 WBC 16.3 H (4.5-11.0) X10^3/uL RBC 4.71 (4.0-5.2) X10^6/uL Hgb 13.2 (12.0-16.0) g/dL Hct 39.7 (36-46) % MCV 84.3 (80-100) fL MCH 28.1 (26-34) PG MCHC 33.3 (30-36) % RDW 13.2 (11.6-14.8) % Plt Count 474 H (150-400) X10^3/uL Neut % (Auto) 83.8 H (50-75) % Lymph % (Auto) 11.5 L (25-40) % [place] % (Auto) 2.7 L (3-14) % Eos % (Auto) 1.7 L (2-4) % Baso % (Auto) 0.3 (0-2) % Neut # (Auto) 26414 H (9881-1347) /uL Lymph # (Auto) 1900 (1881-6102) /uL [place] # (Auto) 400 (0-900) /uL Eos # (Auto) 300 (0-450) /uL Baso # (Auto) 0 (0-100) /uL Sodium 139 (137-145) mmol/L Potassium 4.1 (3.4-5.1) mmol/L Chloride 106 (98-107) mmol/L Carbon Dioxide 20 L (22-32) mmol/L BUN 11 (7-17) mg/dL Creatinine 0.91 (0.52-1.04) mg/dL Estimated GFR > 60 (>60) mL/min BUN/Creatinine Ratio 12.1 (6-22) Glucose 160 H (70-100) mg/dL Calcium 10.0 (8.4-10.2) mg/dL Total Bilirubin 0.7 (0.2-1.3) mg/dL AST 35 (14-36) IU/L ALT 18 (<35) IU/L Alkaline Phosphatase 85 (38-126) U/L Total Protein 8.1 (6.3-8.2) g/dL Albumin 4.7 (3.5-5.0) g/dL Globulin 3.4 (1.7-4.1) g/dL Albumin/Globulin Ratio 1.4 (1.0-2.8) Lipase 61 (23-300) U/L Urine RBC None seen (0-5/HPF) Urine WBC 10-30/hpf H (0-5/HPF) Ur Squamous Epith Cells 1-5 /hpf D (0-5/HPF) Urine Bacteria None seen (None) Ur Culture Indicated? Specimen cultured Vol Urine Centrifuged 10ml (spun) SARS-CoV-2 (PCR) Negative (Negative) Influenza A (RT-PCR) Flu a negative (NEGATIVE) Influenza B (RT-PCR) Flu b negative (NEGATIVE) RSV (PCR) Negative (Negative) Point of care testing: Point of Care Testing Test Results Negative Glucose POC 139 Urine Dip Bedside Urine Glucose Negative Bedside Urine Bilirubin - Negative Bedside Urine Ketone ++ 40 Urine Specific [place] 1.015 Bedside Urine Occult Blood +++ Bedside Urine pH 7.5 Bedside Urine Protein +/- 15 Bedside Urine Urobilinogen - Negative Bedside Urine Nitrite - Negative Bedside Urine Leukocytes ++ [address] scan - abdomen/pelvis: Radiologist's Impression: [address] [address] [address] Scan Report Signed Patient: Laurie Ferrera MR#: [id number] : 1990 Acct:[id number] Age/Sex: 34 / F Date of Service: 02/22/24 Loc: ED Accession Number: [id number] Procedure: CT abdomen pelvis w con Ordering Provider: Jessica Mathur P.A-C PROCEDURE: CT ABDOMEN PELVIS W CON INDICATIONS: Periumbilical abd pain; N/V leukocytosis + UTI TECHNIQUE: After the administration of intravenous contrast, axial sections acquired from the lung bases to the pubic symphysis. Coronal and sagittal reformats were performed. For radiation dose reduction, the following was used: automated exposure control, adjustment of mA and/or kV according to patient size. COMPARISON: [facility], CT, CT ABDOMEN PELVIS W CON, 09/12/2019, 22:53. FINDINGS: Image quality: Diagnostic. Lower Chest: No significant findings. Small hiatal hernia. ABDOMEN: Liver: Mild hepatomegaly. No solid mass. Gallbladder: No radiopaque gallstones or wall thickening. Biliary ducts: No biliary dilation. Pancreas: No ductal dilation. Spleen: Size is within normal limits. Adrenal Glands: No adrenal nodules. Kidneys and Ureters: No hydronephrosis. No solid mass. No complex renal cystic lesion which requires follow up. Stomach and Bowel: Normal small and subtle pericolonic stranding involving cecum, ascending colon, transverse colon and descending colon consistent with colitis. caliber, without significant wall thickening. There is diffuse colonic wall thickening Peritoneum: No abnormal intraperitoneal fluid. No free air. Ventral Wall: No significant ventral hernia. Abdominal Nodes: No retroperitoneal or mesenteric adenopathy by size criteria. Vessels: Aorta and inferior vena cava are normal in size. PELVIS: Pelvic Organs: Unremarkable. Bladder: Mild bladder wall thickening. Pelvic Nodes: No enlarged lymph nodes. Miscellaneous: No inguinal hernias are seen. Bones: No aggressive osseous abnormality. IMPRESSION: 1. Diffuse colonic wall thickening involving cecum, ascending, transverse and descending colon, consistent with colitis. 2. Mild bilateral thickening consistent with mild cystitis. 3. Mild hepatomegaly. Dictated by: Krystle Allen M.D. on 02/22/2024 at 12:37 Approved by: Krystle Allen M.D. on 02/22/2024 at 12:44 ECG Data Interpretation: NSR with PACs vs sinus arrhythmia, heart rate 62 QTC 438 milliseconds Treatment and Disposition Shared decision making:: Shared decision-making was used to determine plan of care in the emergency department plan for outpatient follow-up MDM Narrative Medical decision making narrative: This is an uncomfortable/mildly ill-appearing 34-year-old woman presenting to the ER with concern for abdominal pain beginning last night some nausea vomiting and about 3 days of intermittent constipation and loose stools. Had tried Pepto-Bismol for symptoms. Patient does have a leukocytosis however she has been vomiting and forcing herself to vomit here in the emergency department. Which could explain some of this elevated white count. She does have evidence of a urinary tract infection and reports pain with urination for the last 2 days. Based on her leukocytosis history and exam also some concern for appendicitis. A CT scan is obtained for further evaluation which reveals evidence of mild colitis and also mild wall thickening of the bladder consistent with cystitis. Patient did have some very mild right flank tenderness and pyelonephritis is considered. She was in quite a bit of pain and discomfort initially and was hypertensive suspect due to the pain, was treated with 75 mcg fentanyl in the ER with improvement in pain, also treated with Zofran. Ultimately due to persistent nausea and vomiting she also received Ativan 1 mg which improved her symptoms significantly. Other than the leukocytosis and evidence of UTI her labs were unremarkable. test was negative. She was mildly hyperglycemic at 160 on chemistry. 1 g ceftriaxone was administered in the emergency department for UTI/possible mild pyelonephritis however I think the latter is less likely as she has been afebrile and had no significant CVA tenderness. Did discuss this pt with Attending Dr Jorgensen and will not treat her colitis with Abx at this time; as no suspicion for atypical/bacterial infection based on history. I think it is most likely that her colitis and many of her symptoms are secondary to hyperemesis associated with marijuana use. Did residential youth counselor the patient regarding this prior to discharge. Prescription for Zofran as well as Reglan and 3 day course of cefdinir for her UTI. Patient lives in the same building as her mother and mom will be checking in on her regularly. Return precautions provided, follow-up plan discussed, all questions answered. <Tremayne Jorgensen, DO - Last Filed: 02/22/24 14:37> Lab Data Labs: Lab Results 02/22/24 02/22/24 Range/Units 11:43 12:00 WBC 16.3 H (4.5-11.0) X10^3/uL RBC 4.71 (4.0-5.2) X10^6/uL Hgb 13.2 (12.0-16.0) g/dL Hct 39.7 (36-46) % MCV 84.3 (80-100) fL MCH 28.1 (26-34) PG MCHC 33.3 (30-36) % RDW 13.2 (11.6-14.8) % Plt Count 474 H (150-400) X10^3/uL Neut % (Auto) 83.8 H (50-75) % Lymph % (Auto) 11.5 L (25-40) % [place] % (Auto) 2.7 L (3-14) % Eos % (Auto) 1.7 L (2-4) % Baso % (Auto) 0.3 (0-2) % Neut # (Auto) 89351 H (6227-3913) /uL Lymph # (Auto) 1900 (4811-1799) /uL [place] # (Auto) 400 (0-900) /uL Eos # (Auto) 300 (0-450) /uL Baso # (Auto) 0 (0-100) /uL Sodium 139 (137-145) mmol/L Potassium 4.1 (3.4-5.1) mmol/L Chloride 106 (98-107) mmol/L Carbon Dioxide 20 L (22-32) mmol/L BUN 11 (7-17) mg/dL Creatinine 0.91 (0.52-1.04) mg/dL Estimated GFR > 60 (>60) mL/min BUN/Creatinine Ratio 12.1 (6-22) Glucose 160 H (70-100) mg/dL Calcium 10.0 (8.4-10.2) mg/dL Total Bilirubin 0.7 (0.2-1.3) mg/dL AST 35 (14-36) IU/L ALT 18 (<35) IU/L Alkaline Phosphatase 85 (38-126) U/L Total Protein 8.1 (6.3-8.2) g/dL Albumin 4.7 (3.5-5.0) g/dL Globulin 3.4 (1.7-4.1) g/dL Albumin/Globulin Ratio 1.4 (1.0-2.8) Lipase 61 (23-300) U/L Urine RBC None seen (0-5/HPF) Urine WBC 10-30/hpf H (0-5/HPF) Ur Squamous Epith Cells 1-5 /hpf D (0-5/HPF) Urine Bacteria None seen (None) Ur Culture Indicated? Specimen cultured Vol Urine Centrifuged 10ml (spun) SARS-CoV-2 (PCR) Negative (Negative) Influenza A (RT-PCR) Flu a negative (NEGATIVE) Influenza B (RT-PCR) Flu b negative (NEGATIVE) RSV (PCR) Negative (Negative) Point of care testing: Point of Care Testing Test Results Negative Glucose POC 139 Urine Dip Bedside Urine Glucose Negative Bedside Urine Bilirubin - Negative Bedside Urine Ketone ++ 40 Urine Specific [place] 1.015 Bedside Urine Occult Blood +++ Bedside Urine pH 7.5 Bedside Urine Protein +/- 15 Bedside Urine Urobilinogen - Negative Bedside Urine Nitrite - Negative Bedside Urine Leukocytes ++ 125 Esterase Discharge Plan Departure Patient Disposition: Home Clinical Impression: Colitis, Hyperemesis UTI (urinary tract infection) Qualifiers: Urinary tract infection type: acute cystitis Hematuria presence: without hematuria Qualified Code(s): N30.00 - Acute cystitis without hematuria Instructions: DI for Urinary Tract Infection (UTI), Nausea and Vomiting-Adult Activity Restrictions/Additional Instructions: *You have been diagnosed with [UTI, colitis, hyperemesis-likely marijuana related] *What to do: *Please continue to take your regular medications as directed. [3 ] New medication prescriptions sent to your pharmacy: [Zofran, Reglan, cefdinir (antibiotic for UTI)] [ ] New medication written as a paper prescription [ ] No new medications given *Please follow up with your primary care provider in 2-3 days, call for an appointment. Let them know you were seen in the Emergency Department and that we ask that you be seen in follow up. We will electronically transmit a record of today's note if your PCP is in our system. Your labs and imaging today show that you do have a urinary tract infection, we gave you IV antibiotics for this today I also prescribed additional antibiotics for the next [address] scan also was consistent with a colitis or some mild inflammation of your large intestine. This I suspect is likely due to your recent vomiting, I think is quite likely that your daily use of marijuana could be contributing to your symptoms and I discouraged him from using this at all for a period of time. As it does often cause hyperemesis. Ultimately with some pain medicine and antinausea medicines do able to get her symptoms controlled in the emergency department and you are feeling better. I have prescribed two antinausea medicines occasions for you. Please try to stay on top of these to keep your nausea at base of the you can keep fluids down and began to eat small amounts of food. I would recommend a very simple and bland diet such as bananas rice applesauce toast crackers over the next day or 2 take small sips of fluids frequently and include Pedialyte or Gatorade as well as water or juices. I hope that you feel better soon. *If you do not have a primary care provider please contact the [facility] Resource line at [phone]. They will ask some questions about your medical history and help get you set up with a doctor in the community. *Return to Emergency Department if you should have any new, worsening or concerning symptoms, such as [fever greater than 101 F, shaking chills, worsening pain, persistent vomiting or other bothersome symptoms] Prescriptions: New cefdinir 300 mg capsule 300 mg PO BID 3 Days Qty: 6 0RF ondansetron 4 mg tablet,disintegrating 4 mg PO Q6H MDD 16mg PRN (Reason: nausea and vomiting) 7 Days Qty: 28 0RF metoclopramide HCl 5 mg/5 mL solution 5 mg PO DAILY PRN (Reason: nausea and vomiting) 7 Days Qty: 473 0RF No Action hydrocortisone [Anusol-HC] 2.5 % cream with perineal applicator 1 applic ME QD-BID PRN (Reason: hemorrhoids) Qty: 30 0RF drospirenone-ethinyl estradiol [ALTAF (28)] 3-0.02 mg tablet 1 tab PO DAILY Qty: 84 3RF 28-800 mg-mcg Tablet 1 cap PO QAM Referrals: Miscellaneous,Doctor, MD [Primary Care Provider] - Stand Alone Forms: Patient Portal/API ED Sign-out <Tremayne Jorgensen, DO - Last Filed: 02/22/24 14:37> Cosign ED Attending Cosignature Attestation: Dr Jorgensen Co-Sign Statement: I was available for consultation during this patient's emergency department visit. This chart is signed by myself for administrative purposes only. I did not have direct contact with this patient during this visit. They were seen independently by the APC.
[2024-02-22 11:57] LABS: Add Manual Diff / Slide Review NO; Basophils Absolute Auto 0 /uL (0-100); Basophils Percent Auto 0.3 % (0-2); Eosinophils Absolute Auto 300 /uL (0-450); Eosinophils Percent Auto 1.7 % (2-4); Hematocrit 39.7 % (36-46); Hemoglobin 13.2 g/dL (12.0-16.0); Lymphocytes Absolute Auto 1900 /uL (1100-4500); Lymphocytes Percent Auto 11.5 % (25-40); Mean Corpuscular HGB Conc 33.3 % (30-36); Mean Corpuscular Hemoglobin 28.1 PG (26-34); Mean Corpuscular Volume 84.3 fL (80-100); Monocytes Absolute Auto 400 /uL (0-900); Monocytes Percent Auto 2.7 % (3-14); Neutrophils Absolute Auto 13700 /uL (1500-7000); Neutrophils Percent Auto 83.8 % (50-75); Platelet Count 474 X10^3/uL (150-400); Red Blood Cell Count 4.71 X10^6/uL (4.0-5.2); Red Cell Distribution Width 13.2 % (11.6-14.8); White Blood Cell Count 16.3 X10^3/uL (4.5-11.0)
[2024-02-22 12:05] LABS: Alanine Aminotransferase 18 IU/L (<35); Albumin 4.7 g/dL (3.5-5.0); Albumin Globulin Ratio 1.4 (1.0-2.8); Alkaline Phosphatase 85 U/L (38-126); Aspartate Aminotransferase 35 IU/L (14-36); BUN Creatinine Ratio 12.1 (6-22); Bilirubin Total 0.7 mg/dL (0.2-1.3); Blood Urea Nitrogen 11 mg/dL (7-17); Carbon Dioxide 20 mmol/L (22-32); Chloride 106 mmol/L (98-107); Estimated Glomerular Filt Rate > 60 mL/min (>60); Globulin 3.4 g/dL (1.7-4.1); Glucose 160 mg/dL (70-100); HEMOLYSIS 16 (0-50); Lipase 61 U/L (23-300); Potassium 4.1 mmol/L (3.4-5.1); Sodium 139 mmol/L (137-145); Total Protein 8.1 g/dL (6.3-8.2)
[2024-02-22 12:10] LABS: Urine Volume 10mL (spun)
[2024-02-22] MEDS: SODIUM CHLORIDE 0.9% 1,000 ML 1000 ML IV (12:10)
[2024-02-22 12:15] LABS: Bacteria Urine None Seen; Culture Indicated Urine Specimen Cultured; RBC Urine None Seen (0-5/HPF); Squamous Epithelial Cell Urine 1-5 /HPF (0-5/HPF); WBC Urine 10-30/HPF (0-5/HPF)
[2024-02-22] MEDS: fentaNYL 100 MCG/2 ML INJ 75 MCG IV (12:15)
--- NOTE | 2024-02-22 12:15 | DI.CT.S_ITS ---
PROCEDURE: CT ABDOMEN PELVIS W CON INDICATIONS: Periumbilical abd pain; N/V leukocytosis + UTI TECHNIQUE: After the administration of intravenous contrast, axial sections acquired from the lung bases to the pubic symphysis. Coronal and sagittal reformats were performed. For radiation dose reduction, the following was used: automated exposure control, adjustment of mA and/or kV according to patient size. COMPARISON: [facility], CT, CT ABDOMEN PELVIS W CON, 09/12/2019, 22:53. FINDINGS: Image quality: Diagnostic. Lower Chest: No significant findings. Small hiatal hernia. ABDOMEN: Liver: Mild hepatomegaly. No solid mass. Gallbladder: No radiopaque gallstones or wall thickening. Biliary ducts: No biliary dilation. Pancreas: No ductal dilation. Spleen: Size is within normal limits. Adrenal Glands: No adrenal nodules. Kidneys and Ureters: No hydronephrosis. No solid mass. No complex renal cystic lesion which requires follow up. Stomach and Bowel: Normal small and subtle pericolonic stranding involving cecum, ascending colon, transverse colon and descending colon consistent with colitis. caliber, without significant wall thickening. There is diffuse colonic wall thickening Peritoneum: No abnormal intraperitoneal fluid. No free air. Ventral Wall: No significant ventral hernia. Abdominal Nodes: No retroperitoneal or mesenteric adenopathy by size criteria. Vessels: Aorta and inferior vena cava are normal in size. PELVIS: Pelvic Organs: Unremarkable. Bladder: Mild bladder wall thickening. Pelvic Nodes: No enlarged lymph nodes. Miscellaneous: No inguinal hernias are seen. Bones: No aggressive osseous abnormality. IMPRESSION: 1. Diffuse colonic wall thickening involving cecum, ascending, transverse and descending colon, consistent with colitis. 2. Mild bilateral thickening consistent with mild cystitis. 3. Mild hepatomegaly. Dictated by: Krystle Allen M.D. on 02/22/2024 at 12:37 Approved by: Krystle Allen M.D. on 02/22/2024 at 12:44
[2024-02-22] MEDS: cefTRIAXone 1,000 MG in SODIUM CHLORIDE 0.9% 100 ML 200 MG IV (12:56)
[2024-02-22 12:58] LABS: Influenza A - CEPHEID Flu A NEGATIVE (NEGATIVE); Influenza B - CEPHEID Flu B NEGATIVE (NEGATIVE); Respiratory Syncytial Virus Negative (Negative)
[2024-02-22 13:01] LABS: COVID-19 CEPHEID 4-PLEX PCR Negative (Negative)
[2024-02-22] MEDS: KETOROLAC 30 MG/ML VIAL 15 MG IV (13:30)
[2024-02-22] MEDS: LORazepam 2 MG/ML INJ 1 MG IV (13:37)
== END 2024-02-22 14:45 | disposition home or self-care (01) ==
PROVIDERS: Emergency Medicine; Emergency Provider Student in an Organized Health Care Education/Training Program
DX: K52.9 Noninfective gastroenteritis and colitis, unspecified (principal); N30.00 Acute cystitis without hematuria; R11.2 Nausea with vomiting, unspecified; Z20.822 Contact with and (suspected) exposure to COVID-19
CPT/HCPCS: 0241U; 36415; 74177; 80053; 81003; 81015; 81025; 82962; 83690; 85025; 87077; 87086; 87186; 93005; 93010; 96365; 96375; 99284; J0696; J1885; J2060; J2405; J3010

== ENCOUNTER 2024-03-30 13:30 | Emergency (ER) | payer OTHER, MEDICAID, SELFPAY ==
[2021-11-19 14:40] VITALS: BMI 30.2
[2024-03-30] VITALS (19 sets, daily range): BP systolic 160–214; BP diastolic 87–116; PULSE 28–87; RESP 18–40; TEMP 36.1–37; O2SAT 97–100; BMI 28.3
--- NOTE | 2024-03-30 14:01 | ED.GENADULT ---
HPI - General Adult General Chief complaint: Abdominal Pain Stated complaint: thinks is having cholitis flare up Time Seen by Provider: 03/30/24 13:40 Source: patient Mode of arrival: Wheelchair History of Present Illness HPI narrative: Patient is a 34-year-old female who is here for evaluation of less than 24 hours of abdominal pain and vomiting and diarrhea. No recent travel. No recent antibiotics. She was seen here in the emergency department a couple weeks ago with similar symptoms. She had a CT scan performed and was told that she had ?colitis? was not given any antibiotics. She stated that her symptoms then improved but have now returned again. No blood in her stool. Generalized abdominal pain. No fevers. No urinary symptoms. Related Data Home Medications Medication Instructions Recorded Confirmed vit no.133-ferrous 1 cap PO QAM 03/09/18 05/28/22 fumarate 28 mg-folic acid 800 mcg tablet () Previous Rx's Medication Instructions Recorded hydrocortisone 2.5 % topical cream 1 applic [place] QD-BID PRN hemorrhoids 05/03/22 with perineal applicator #30 grams (Anusol-HC) drospirenone 3 mg-ethinyl 1 tab PO DAILY #84 tabs 08/24/22 estradiol 0.02 mg tablet (ALTAF (28)) ondansetron 4 mg disintegrating 4 mg PO Q6H PRN nausea and 03/30/24 tablet vomiting #20 tabs Allergies Allergy/AdvReac Type Severity Reaction Status Date / Time hydrocodone [From Vicodin] AdvReac Vomiting Verified 03/30/24 13:39 Review of Systems Review of Systems Narrative: See HPI Patient History Medical History History of severe pre-eclampsia (~2021) Chronic eczema (~2014) Hyperemesis affecting , antepartum (~2020) 2 Vaginal delivery (~2010) Surgical History S/P tonsillectomy and adenoidectomy (~2006) History of placement of ear tubes (~2006) [place] teeth extracted (~2019) Family History Mother No problems noted. Father Family history unknown Grandmother Multiple sclerosis Grandfather S/P CABG x 3 Hyperlipidemia Alcoholic Grandmother Cancer Grandfather No problems noted. Social History marital status: unmarried,living together number of children: 2 household members: significant other, family and children lives independently: Yes caregiver/support person: No pets and animals: Yes (2 dogs, 3 sheep, 50 pigs, chicken, ducks, geese: aware. ) education level: high school occupational status: unemployed (Left job in Jun due to vaccine mandate. 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 special mallory needs: No seatbelt use: always do you feel safe at home: Yes Smoking Status: Current some day smoker second hand exposure: No alcohol intake: former substance use type: marijuana (Quit with . Previously was a daily smoker. ) during the past year weight has: decreased > 10 lbs (lost 12 lbs r/t hyperemesis.) well-balanced diet: rarely or never (Week 4 until present: many days she can't keep anything down. Yesterday was first time she ate in a while.) daily servings fruits/ve-1 (1-2) caffeine: No Type(s) of exercise: walking (Normally walks regularly, but last 6 weeks has felt too poorly. ) frequency: 3-4 times per week duration: 45-60 minutes/day Smoking Status: Current some day smoker alcohol intake frequency: other Substance Use Type: does not use Exam Initial Vital Signs Initial Vital Signs: Vital Signs Temperature 97.0 F L 03/30/24 13:39 Pulse Rate 51 L 03/30/24 13:39 Respiratory Rate 18 03/30/24 13:39 Blood Pressure 193/104 H 03/30/24 13:39 Pulse Oximetry 100 03/30/24 13:39 Oxygen Delivery Method Room Air 03/30/24 13:39 HENMT Head: normal to inspection and normocephalic Resp Effort & Inspection: normal respiratory effort Auscultation: clear to auscultation bilaterally Cardio Rate: regular rate Rhythm: regular rhythm GI Inspection: normal to inspection and non-distended Palpation: soft and tender Skin General: no rashes or lesions noted Neuro General: patient alert, patient awake and moves all extremities Extrem General: capillary refill normal Course Orders Ordered: ED Orders 03/30/24 13:49 Complete Blood Count AUTO DIFF Stat Comprehensive Metabolic Panel Stat Lipase Stat 03/30/24 14:40 EKG-12 Lead Stat 03/30/24 15:04 Urine Microscopic Stat 03/30/24 15:18 EKG-12 Lead Stat 03/30/24 16:12 CT abdomen pelvis w con Stat Ondansetron HCl (Ondansetron 4 Mg/2 Ml Inj) 4 mg IV NOW PRN PRN Reason: Nausea And Vomiting Last Admin: 03/30/24 14:09 Dose: 4 mg Documented By: EVER Ondansetron HCl (Ondansetron 4 Mg Odt) 4 mg PO NOW PRN PRN Reason: Nausea And Vomiting Discontinued Medications Sodium Chloride (Normal Saline 0.9%) 1,000 mls @ 1,000 mls/hr IV BOLUS ONE Stop: 03/30/24 15:53 Last Infusion: 03/30/24 16:00 Dose: Infused Documented By: Admin: 03/30/24 14:59 Dose: 1,000 mls/hr Documented By: EVER Acetaminophen (Ofirmev) 1,000 mg in 100 mls @ 400 mls/hr IV NOW ONE Stop: 03/30/24 16:20 Last Infusion: 03/30/24 16:57 Dose: Infused Documented By: Admin: 03/30/24 16:36 Dose: 400 mls/hr Documented By: STACY Lorazepam (Lorazepam 2 Mg/Ml Inj) 1 mg IV NOW ONE Stop: 03/30/24 16:13 Last Admin: 03/30/24 16:21 Dose: 1 mg Documented By: STACY Metoclopramide HCl (Metoclopramide 10 Mg/2 Ml Inj) 10 mg IV NOW ONE Stop: 03/30/24 14:53 Last Admin: 03/30/24 15:02 Dose: 10 mg Documented By: EVER Vital Signs Vital signs: Vital Signs - 8 hr 03/30/24 13:39 03/30/24 14:33 03/30/24 14:37 Temperature 97.0 F L Pulse Rate 51 L 54 L Respiratory Rate 18 Blood Pressure 193/104 H 194/108 H Pulse Oximetry 100 98 Oxygen Delivery Method Room Air 03/30/24 14:37 03/30/24 15:00 03/30/24 15:01 Temperature Pulse Rate 41 L 43 L 43 L Respiratory Rate 26 H 28 H 24 Blood Pressure Pulse Oximetry 100 98 97 Oxygen Delivery Method Room Air 03/30/24 15:01 03/30/24 15:08 03/30/24 15:08 Temperature Pulse Rate 53 L Respiratory Rate 22 Blood Pressure 196/89 H 214/116 H Pulse Oximetry 100 Oxygen Delivery Method 03/30/24 15:12 03/30/24 15:12 03/30/24 15:30 Temperature Pulse Rate 65 45 L Respiratory Rate 23 26 H Blood Pressure 206/102 H 213/95 H Pulse Oximetry 100 97 Oxygen Delivery Method Room Air 03/30/24 15:31 03/30/24 15:31 03/30/24 16:00 Temperature Pulse Rate 28 L 53 L Respiratory Rate 40 H 30 H Blood Pressure 213/95 H Pulse Oximetry 98 98 Oxygen Delivery Method Room Air Room Air 03/30/24 16:01 03/30/24 16:01 03/30/24 16:30 Temperature Pulse Rate 45 L 51 L Respiratory Rate 25 H Blood Pressure 160/87 H Pulse Oximetry 99 98 Oxygen Delivery Method 03/30/24 16:56 03/30/24 16:56 03/30/24 17:00 Temperature Pulse Rate 61 87 Respiratory Rate 20 27 H Blood Pressure 162/97 H Pulse Oximetry 100 98 Oxygen Delivery Method 03/30/24 17:01 03/30/24 17:01 03/30/24 17:09 Temperature Pulse Rate 74 Respiratory Rate 20 Blood Pressure 203/97 H 177/88 H Pulse Oximetry 99 Oxygen Delivery Method 03/30/24 17:09 03/30/24 17:30 03/30/24 17:30 Temperature Pulse Rate 55 L 59 L Respiratory Rate 20 22 Blood Pressure 173/102 H Pulse Oximetry 100 99 Oxygen Delivery Method Room Air 03/30/24 18:00 03/30/24 18:00 Temperature Pulse Rate 57 L Respiratory Rate 25 H Blood Pressure 172/93 H Pulse Oximetry Oxygen Delivery Method Medical Decision Making Lab Data Lab results reviewed: Yes I reviewed the patient's lab results. 03/30/24 13:49 03/30/24 13:49 Labs: Lab Results 03/30/24 03/30/24 Range/Units 13:49 15:04 WBC 12.2 H (4.5-11.0) X10^3/uL RBC 4.75 (4.0-5.2) X10^6/uL Hgb 13.2 (12.0-16.0) g/dL Hct 39.9 (36-46) % MCV 84.0 (80-100) fL MCH 27.7 (26-34) PG MCHC 33.0 (30-36) % RDW 13.5 (11.6-14.8) % Plt Count 302 (150-400) X10^3/uL Neut % (Auto) 87.4 H (50-75) % Lymph % (Auto) 9.9 L (25-40) % [place] % (Auto) 1.9 L (3-14) % Eos % (Auto) 0.4 L (2-4) % Baso % (Auto) 0.4 (0-2) % Neut # (Auto) 42409 H (3816-6151) /uL Lymph # (Auto) 1200 (0332-5158) /uL [place] # (Auto) 200 (0-900) /uL Eos # (Auto) 100 (0-450) /uL Baso # (Auto) 0 (0-100) /uL Sodium 138 (137-145) mmol/L Potassium 4.0 (3.4-5.1) mmol/L Chloride 107 (98-107) mmol/L Carbon Dioxide 21 L (22-32) mmol/L BUN 8 (7-17) mg/dL Creatinine 0.92 (0.52-1.04) mg/dL Estimated GFR > 60 (>60) mL/min BUN/Creatinine Ratio 8.7 (6-22) Glucose 148 H (70-100) mg/dL Calcium 9.7 (8.4-10.2) mg/dL Total Bilirubin 1.0 (0.2-1.3) mg/dL AST 35 (14-36) IU/L ALT 20 (<35) IU/L Alkaline Phosphatase 77 (38-126) U/L Total Protein 8.1 (6.3-8.2) g/dL Albumin 4.7 (3.5-5.0) g/dL Globulin 3.4 (1.7-4.1) g/dL Albumin/Globulin Ratio 1.4 (1.0-2.8) Lipase 56 (23-300) U/L Urine RBC 0-1/hpf (0-5/HPF) Urine WBC 1-5/hpf (0-5/HPF) Ur Squamous Epith Cells 5-10 /hpf H (0-5/HPF) Urine Bacteria Occasional (0-1) (None) Ur Culture Indicated? Cult not indicated Vol Urine Centrifuged 10ml (spun) Point of Care Testing Test Results Negative Urine Dip Bedside Urine Glucose Negative Bedside Urine Bilirubin - Negative Bedside Urine Ketone ++ 40 Urine Specific [place] 1.015 Bedside Urine Occult Blood - Negative Bedside Urine pH 8.0 Bedside Urine Protein +/- 15 Bedside Urine Urobilinogen - Negative Bedside Urine Nitrite - Negative Bedside Urine Leukocytes - Negative Esterase Point of care testing: Point of Care Testing Test Results Negative Urine Dip Bedside Urine Glucose Negative Bedside Urine Bilirubin - Negative Bedside Urine Ketone ++ 40 Urine Specific [place] 1.015 Bedside Urine Occult Blood - Negative Bedside Urine pH 8.0 Bedside Urine Protein +/- 15 Bedside Urine Urobilinogen - Negative Bedside Urine Nitrite - Negative Bedside Urine Leukocytes - Negative Esterase Imaging Data CT scan - abdomen/pelvis: Radiologist's Impression: PROCEDURE: CT ABDOMEN PELVIS W CON INDICATIONS: Generalized abdominal pain TECHNIQUE: After the administration of intravenous contrast, axial sections acquired from the lung bases to the pubic symphysis. Coronal and sagittal reformats were performed. For radiation dose reduction, the following was used: automated exposure control, adjustment of mA and/or kV according to patient size. COMPARISON: [facility], CT, CT ABDOMEN PELVIS W CON, 02/22/2024, 12:25. FINDINGS: Image quality: Diagnostic. Lower Chest: No significant findings. ABDOMEN: Liver: No solid mass. Gallbladder: No radiopaque gallstones or wall thickening. Biliary ducts: No biliary dilation. Pancreas: No ductal dilation. Spleen: Size is within normal limits. Adrenal Glands: No adrenal nodules. Kidneys and Ureters: No hydronephrosis. No solid mass. No complex renal cystic lesion which requires follow up. Stomach and Bowel: Areas of colonic wall thickening are redemonstrated involving the colon with minimal surrounding fat stranding. Peritoneum: No abnormal intraperitoneal fluid. No free air. Ventral Wall: No significant ventral hernia. Abdominal Nodes: No retroperitoneal or mesenteric adenopathy by size criteria. Vessels: Aorta and inferior vena cava are normal in size. PELVIS: Pelvic Organs: Unremarkable. Bladder: No bladder wall thickening, accounting for underdistention. Pelvic Nodes: No enlarged lymph nodes. Miscellaneous: No inguinal hernias are seen. Bones: No aggressive osseous abnormality. IMPRESSION: Again seen are areas of mild colonic wall thickening and minimal fat stranding. Findings may represent colitis. No other acute findings are seen within the abdomen or pelvis. ECG Data Attestation: I personally reviewed and interpreted this ECG as follows: Interpretation: Sinus rhythm Ventricular rate of 67 Normal axis Normal QRS Normal QTC No ST T wave changes Sinus bradycardia Ventricular rate of 40 Normal axis Normal QRS No ST T wave changes MDM Narrative Medical decision making narrative: After multiple rounds of medications her retching was finally improved. She was able to sleep. CT scan once again shows colitis but no acute surgical abnormality. Leukocytosis most likely secondary to the vomiting and also the colitis. No indication for antibiotics. Tolerating small amount of oral intake. Did have some periods of bradycardia here in the ER but was asymptomatic from these. Will discharge home with nausea medication. She was given return precautions. Discharge Plan Departure Patient Disposition: Home Clinical Impression: Colitis, Abdominal pain, Vomiting Instructions: DI for Abdominal Pain-Adult, Nausea and Vomiting-Adult, DI for Colitis Activity Restrictions/Additional Instructions: Recommend that you increase your fluid intake by drinking small amounts more frequently. Use the nausea medication as needed. I also recommend a bland diet that you advanced as tolerated. Contact your primary doctor for follow-up. Prescriptions: New ondansetron 4 mg tablet,disintegrating 4 mg PO Q6H PRN (Reason: nausea and vomiting) Qty: 20 0RF No Action hydrocortisone [Anusol-HC] 2.5 % cream with perineal applicator 1 applic IL QD-BID PRN (Reason: hemorrhoids) Qty: 30 0RF drospirenone-ethinyl estradiol [ALTAF (28)] 3-0.02 mg tablet 1 tab PO DAILY Qty: 84 3RF 28-800 mg-mcg Tablet 1 cap PO QAM Referrals: Miscellaneous,Doctor, MD [Primary Care Provider] - Stand Alone Forms: Patient Portal/API
[2024-03-30] MEDS: ONDANSETRON 4 MG/2 ML INJ IV (14:09)
[2024-03-30 14:11] LABS: Add Manual Diff / Slide Review NO; Basophils Absolute Auto 0 /uL (0-100); Basophils Percent Auto 0.4 % (0-2); Eosinophils Absolute Auto 100 /uL (0-450); Eosinophils Percent Auto 0.4 % (2-4); Hematocrit 39.9 % (36-46); Hemoglobin 13.2 g/dL (12.0-16.0); Lymphocytes Absolute Auto 1200 /uL (1100-4500); Lymphocytes Percent Auto 9.9 % (25-40); Mean Corpuscular Hemoglobin 27.7 PG (26-34); Monocytes Absolute Auto 200 /uL (0-900); Monocytes Percent Auto 1.9 % (3-14); Neutrophils Absolute Auto 10600 /uL (1500-7000); Neutrophils Percent Auto 87.4 % (50-75); Platelet Count 302 X10^3/uL (150-400); Red Blood Cell Count 4.75 X10^6/uL (4.0-5.2); Red Cell Distribution Width 13.5 % (11.6-14.8); White Blood Cell Count 12.2 X10^3/uL (4.5-11.0)
[2024-03-30 14:18] LABS: Alanine Aminotransferase 20 IU/L (<35); Albumin 4.7 g/dL (3.5-5.0); Albumin Globulin Ratio 1.4 (1.0-2.8); Alkaline Phosphatase 77 U/L (38-126); Aspartate Aminotransferase 35 IU/L (14-36); BUN Creatinine Ratio 8.7 (6-22); Blood Urea Nitrogen 8 mg/dL (7-17); Calcium 9.7 mg/dL (8.4-10.2); Carbon Dioxide 21 mmol/L (22-32); Chloride 107 mmol/L (98-107); Estimated Glomerular Filt Rate > 60 mL/min (>60); Globulin 3.4 g/dL (1.7-4.1); Glucose 148 mg/dL (70-100); HEMOLYSIS < 15 (0-50); Lipase 56 U/L (23-300); Sodium 138 mmol/L (137-145); Total Protein 8.1 g/dL (6.3-8.2)
--- NOTE | 2024-03-30 14:47 | EKG_ITS ---
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
[2024-03-30] MEDS: SODIUM CHLORIDE 0.9% 1,000 ML 1000 ML IV (14:59)
[2024-03-30] MEDS: METOCLOPRAMIDE 10 MG/2 ML INJ IV (15:02)
--- NOTE | 2024-03-30 15:18 | EKG_ITS ---
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
[2024-03-30 15:32] LABS: RBC Urine 0-1/HPF (0-5/HPF); Urine Volume 10mL (spun); WBC Urine 1-5/HPF (0-5/HPF)
[2024-03-30 15:33] LABS: Bacteria Urine Occasional (0-1); Culture Indicated Urine Cult Not Indicated; Squamous Epithelial Cell Urine 5-10 /HPF (0-5/HPF)
--- NOTE | 2024-03-30 16:12 | DI.CT.S_ITS ---
PROCEDURE: CT ABDOMEN PELVIS W CON INDICATIONS: Generalized abdominal pain TECHNIQUE: After the administration of intravenous contrast, axial sections acquired from the lung bases to the pubic symphysis. Coronal and sagittal reformats were performed. For radiation dose reduction, the following was used: automated exposure control, adjustment of mA and/or kV according to patient size. COMPARISON: [facility], CT, CT ABDOMEN PELVIS W CON, 02/22/2024, 12:25. FINDINGS: Image quality: Diagnostic. Lower Chest: No significant findings. ABDOMEN: Liver: No solid mass. Gallbladder: No radiopaque gallstones or wall thickening. Biliary ducts: No biliary dilation. Pancreas: No ductal dilation. Spleen: Size is within normal limits. Adrenal Glands: No adrenal nodules. Kidneys and Ureters: No hydronephrosis. No solid mass. No complex renal cystic lesion which requires follow up. Stomach and Bowel: Areas of colonic wall thickening are redemonstrated involving the colon with minimal surrounding fat stranding. Peritoneum: No abnormal intraperitoneal fluid. No free air. Ventral Wall: No significant ventral hernia. Abdominal Nodes: No retroperitoneal or mesenteric adenopathy by size criteria. Vessels: Aorta and inferior vena cava are normal in size. PELVIS: Pelvic Organs: Unremarkable. Bladder: No bladder wall thickening, accounting for underdistention. Pelvic Nodes: No enlarged lymph nodes. Miscellaneous: No inguinal hernias are seen. Bones: No aggressive osseous abnormality. IMPRESSION: Again seen are areas of mild colonic wall thickening and minimal fat stranding. Findings may represent colitis. No other acute findings are seen within the abdomen or pelvis. Dictated by: Blair Mojica M.D. on 03/30/2024 at 16:51 Approved by: Blair Mojica M.D. on 03/30/2024 at 16:56
[2024-03-30] MEDS: LORazepam 2 MG/ML INJ 1 MG IV (16:21)
[2024-03-30] MEDS: ACETAMINOPHEN IV 1,000 MG/100 ML VIAL 400 MG IV (16:36)
== END 2024-03-30 18:12 | disposition home or self-care (01) ==
PROVIDERS: Emergency Provider Emergency Medicine
DX: K52.9 Noninfective gastroenteritis and colitis, unspecified (principal); R10.84 Generalized abdominal pain; R00.1 Bradycardia, unspecified; R11.10 Vomiting, unspecified
CPT/HCPCS: 36415; 74177; 80053; 81003; 81015; 81025; 83690; 85025; 93005; 96361; 96365; 96375; 99284; J0136; J2060; J2405; J2765; Q9967

== ENCOUNTER 2024-04-02 19:10 | Emergency (ER) | payer OTHER, MEDICAID, SELFPAY ==
[2021-11-19 14:40] VITALS: BMI 30.2
[2024-04-02] VITALS (15 sets, daily range): BP systolic 183–214; BP diastolic 88–155; PULSE 44–71; RESP 16–35; TEMP 35.6–37.2; O2SAT 94–100; BMI 28.3
[2024-04-02 20:06] LABS: Add Manual Diff / Slide Review NO; Basophils Absolute Auto 100 /uL (0-100); Basophils Percent Auto 0.6 % (0-2); Eosinophils Absolute Auto 100 /uL (0-450); Eosinophils Percent Auto 1.2 % (2-4); Hemoglobin 13.7 g/dL (12.0-16.0); Lymphocytes Absolute Auto 1500 /uL (1100-4500); Lymphocytes Percent Auto 12.5 % (25-40); Mean Corpuscular HGB Conc 33.5 % (30-36); Mean Corpuscular Volume 83.6 fL (80-100); Monocytes Absolute Auto 300 /uL (0-900); Monocytes Percent Auto 2.7 % (3-14); Neutrophils Absolute Auto 10000 /uL (1500-7000); Platelet Count 387 X10^3/uL (150-400); Red Cell Distribution Width 13.5 % (11.6-14.8); White Blood Cell Count 12.1 X10^3/uL (4.5-11.0)
--- NOTE | 2024-04-02 20:09 | PC.NURSE ---
This RN checks on patient. She reports I threw up a bunch of blood earlier. Provider Mark made aware.
--- NOTE | 2024-04-02 20:13 | EKG_ITS ---
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
[2024-04-02 20:16] LABS: Alanine Aminotransferase 28 IU/L (<35); Albumin Globulin Ratio 1.4 (1.0-2.8); Alkaline Phosphatase 65 U/L (38-126); Aspartate Aminotransferase 38 IU/L (14-36); BUN Creatinine Ratio 13.5 (6-22); Bilirubin Total 0.6 mg/dL (0.2-1.3); Blood Urea Nitrogen 13 mg/dL (7-17); Carbon Dioxide 26 mmol/L (22-32); Chloride 104 mmol/L (98-107); Estimated Glomerular Filt Rate > 60 mL/min (>60); Globulin 3.7 g/dL (1.7-4.1); Glucose 146 mg/dL (70-100); HEMOLYSIS < 15 (0-50); Lipase 72 U/L (23-300); Potassium 3.4 mmol/L (3.4-5.1); Sodium 138 mmol/L (137-145); Total Protein 8.7 g/dL (6.3-8.2)
[2024-04-02] MEDS: ONDANSETRON 4 MG/2 ML INJ IV (20:29)
--- NOTE | 2024-04-02 20:32 | ED_ITS ---
HPI - Abdominal Pain General Chief Complaint: Abdominal Pain Stated Complaint: colitis inflamation, vomiting Time Seen by Provider: 04/02/24 19:39 Source: patient Mode of arrival: Ambulatory History of Present Illness HPI narrative: 34-year-old female with history nonspecific colitis, marijuana use presents for evaluation of generalized abdominal pain with nausea and vomiting. Patient is seen in the [place] [facility] Department 3 days prior for same symptoms, she underwent laboratory work and CT imaging that showed ?mild colonic wall thickening and minimal fat stranding. Findings May represent colitis?. Other workup showed no indication for hospitalization and patient was discharged with antiemetics. Patient states that she has been trying to follow a light diet but continues to experience symptoms. The antinausea medication does not seem to be working at home. Since her initial diagnosis of colitis on 02/22/2024 patient has not attempted to follow up with Gastroenterology. Patient is loudly dry heaving and retching into an emesis bag, however there is little to no production of emesis Related Data Home Medications Medication Instructions Recorded Confirmed vit no.133-ferrous 1 cap PO QAM 03/09/18 05/28/22 fumarate 28 mg-folic acid 800 mcg tablet () Previous Rx's Medication Instructions Recorded hydrocortisone 2.5 % topical cream 1 applic WY QD-BID PRN hemorrhoids 05/03/22 with perineal applicator #30 grams (Anusol-HC) drospirenone 3 mg-ethinyl 1 tab PO DAILY #84 tabs 08/24/22 estradiol 0.02 mg tablet (ALTAF (28)) ondansetron 4 mg disintegrating 4 mg PO Q6H PRN nausea and 03/30/24 tablet vomiting #20 tabs promethazine 25 mg rectal 25 mg WY Q4-6H PRN nausea and 04/02/24 suppository vomiting #12 ea promethazine 25 mg tablet 25 mg PO Q6H PRN nausea and 04/02/24 vomiting #30 tabs Allergies Allergy/AdvReac Type Severity Reaction Status Date / Time hydrocodone [From Vicodin] AdvReac Vomiting Verified 03/30/24 13:39 Patient History Medical History History of severe pre-eclampsia (~2021) Chronic eczema (~2014) Hyperemesis affecting , antepartum (~2020) 2 Vaginal delivery (~2010) Surgical History S/P tonsillectomy and adenoidectomy (~2006) History of placement of ear tubes (~2006) [place] teeth extracted (~2019) Family History Mother No problems noted. Father Family history unknown Grandmother Multiple sclerosis Grandfather S/P CABG x 3 Hyperlipidemia Alcoholic Grandmother Cancer Grandfather No problems noted. Social History marital status: unmarried,living together number of children: 2 household members: significant other, family and children lives independently: Yes caregiver/support person: No pets and animals: Yes (2 dogs, 3 sheep, 50 pigs, chicken, ducks, geese: aware. ) education level: high school occupational status: unemployed (Left job in Jun due to vaccine mandate. 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 special mallory needs: No seatbelt use: always do you feel safe at home: Yes Smoking Status: Current some day smoker second hand exposure: No alcohol intake: former substance use type: marijuana (Quit with . Previously was a daily smoker. ) during the past year weight has: decreased > 10 lbs (lost 12 lbs r/t hyperemesis.) well-balanced diet: rarely or never (Week 4 until present: many days she can't keep anything down. Yesterday was first time she ate in a while.) daily servings fruits/ve-1 (1-2) caffeine: No Type(s) of exercise: walking (Normally walks regularly, but last 6 weeks has felt too poorly. ) frequency: 3-4 times per week duration: 45-60 minutes/day Smoking Status: Current some day smoker alcohol intake frequency: other Substance Use Type: does not use Exam Initial Vital Signs Initial Vital Signs: Vital Signs Temperature 96.1 F L 04/02/24 19:15 Pulse Rate 70 04/02/24 19:15 Respiratory Rate 18 04/02/24 19:15 Blood Pressure 214/110 H 04/02/24 19:15 Pulse Oximetry 100 04/02/24 19:15 Oxygen Delivery Method Room Air 04/02/24 19:15 Const: Awake, alert, appears chronically unwell, retching loudly into empty emesis bag Cardiac: regular rate, regular rhythm RESP: unlabored, clear bilaterally, no wheezing GI: Soft, generalized tenderness to deep palpation without rebound or guarding Skin: Warm, Dry, intact, no rashes Neuro: AO x3, CN II-XII grossly intact, moves all extremities Course Orders Ordered: Discontinued Medications Droperidol (Droperidol 5 Mg/2 Ml Vial) 2.5 mg IV NOW ONE Stop: 04/02/24 20:17 Last Admin: 04/02/24 20:38 Dose: 2.5 mg Documented By: ZARIA Droperidol (Droperidol 5 Mg/2 Ml Vial) 2.5 mg IV NOW ONE Stop: 04/02/24 23:06 Last Admin: 04/02/24 23:31 Dose: 2.5 mg Documented By: ZARIA Sodium Chloride (Normal Saline 0.9%) 1,000 mls @ 1,000 mls/hr IV BOLUS ONE Stop: 04/02/24 21:56 Last Infusion: 04/02/24 22:24 Dose: Infused Documented By: Admin: 04/02/24 21:11 Dose: 1,000 mls/hr Documented By: ZARIA Ondansetron HCl (Ondansetron 4 Mg/2 Ml Inj) 4 mg IV NOW PRN PRN Reason: Nausea And Vomiting Last Admin: 04/02/24 20:29 Dose: 4 mg Documented By: ZARIA Ondansetron HCl (Ondansetron 4 Mg Odt) 4 mg PO NOW PRN PRN Reason: Nausea And Vomiting Vital Signs Vital signs: Vital Signs - 8 hr 04/02/24 22:00 04/02/24 22:00 04/02/24 22:53 Temperature 98.9 F Pulse Rate 63 65 Respiratory Rate 29 H 21 Blood Pressure 207/104 H 199/155 H Pulse Oximetry 99 98 Oxygen Delivery Method 04/02/24 22:56 04/02/24 23:00 04/02/24 23:00 Temperature Pulse Rate 69 69 Respiratory Rate 24 Blood Pressure 185/95 H Pulse Oximetry 98 98 Oxygen Delivery Method Room Air 04/02/24 23:33 04/02/24 23:51 04/02/24 23:51 Temperature Pulse Rate 56 L 64 Respiratory Rate 16 25 H Blood Pressure 212/102 H Pulse Oximetry 98 99 Oxygen Delivery Method Room Air 04/02/24 23:53 04/02/24 23:57 Temperature Pulse Rate 71 66 Respiratory Rate 35 H 16 Blood Pressure Pulse Oximetry 99 Oxygen Delivery Method Room Air MDM - Abdominal Pain Differential Diagnosis Differential diagnosis: Likely abdominal pain, acute appendicitis and calculus of kidney Lab Data 04/02/24 19:50 04/02/24 19:50 Labs: Lab Results 04/02/24 Range/Units 19:50 WBC 12.1 H (4.5-11.0) X10^3/uL RBC 4.90 (4.0-5.2) X10^6/uL Hgb 13.7 (12.0-16.0) g/dL Hct 41.0 (36-46) % MCV 83.6 (80-100) fL MCH 28.0 (26-34) PG MCHC 33.5 (30-36) % RDW 13.5 (11.6-14.8) % Plt Count 387 (150-400) X10^3/uL Neut % (Auto) 83.0 H (50-75) % Lymph % (Auto) 12.5 L (25-40) % [place] % (Auto) 2.7 L (3-14) % Eos % (Auto) 1.2 L (2-4) % Baso % (Auto) 0.6 (0-2) % Neut # (Auto) 75918 H (5203-7944) /uL Lymph # (Auto) 1500 (4482-9480) /uL [place] # (Auto) 300 (0-900) /uL Eos # (Auto) 100 (0-450) /uL Baso # (Auto) 100 (0-100) /uL Sodium 138 (137-145) mmol/L Potassium 3.4 (3.4-5.1) mmol/L Chloride 104 (98-107) mmol/L Carbon Dioxide 26 (22-32) mmol/L BUN 13 (7-17) mg/dL Creatinine 0.96 (0.52-1.04) mg/dL Estimated GFR > 60 (>60) mL/min BUN/Creatinine Ratio 13.5 (6-22) Glucose 146 H (70-100) mg/dL Calcium 10.0 (8.4-10.2) mg/dL Total Bilirubin 0.6 (0.2-1.3) mg/dL AST 38 H (14-36) IU/L ALT 28 (<35) IU/L Alkaline Phosphatase 65 (38-126) U/L Total Protein 8.7 H (6.3-8.2) g/dL Albumin 5.0 (3.5-5.0) g/dL Globulin 3.7 (1.7-4.1) g/dL Albumin/Globulin Ratio 1.4 (1.0-2.8) Lipase 72 (23-300) U/L Point of care testing: Point of Care Testing Test Results Negative Urine Dip Bedside Urine Glucose Negative Bedside Urine Bilirubin - Negative Bedside Urine Ketone + 15 Urine Specific [place] 1.015 Bedside Urine Occult Blood - Negative Bedside Urine pH 7.0 Bedside Urine Protein +/- 15 Bedside Urine Urobilinogen - Negative Bedside Urine Nitrite - Negative Bedside Urine Leukocytes - Negative Esterase ECG Data Interpretation: Sinus bradycardia at 54 beats per minute, normal W[place], no ST T wave changes, no STEMI, QTC 386 MDM Narrative Medical decision making narrative: Patient presenting for nausea, vomiting, generalized abdominal pain similar to when she was diagnosed again with colitis 3 days prior. Abdomen is soft without peritoneal signs. Patient noted to be hypertensive on arrival, however chart review shows that patient has had persistent hypertensive blood pressure measurements in the emergency department dating back to at least 2021 with blood pressures consistently measured between 180-190 systolic. When she was initially diagnosed with colitis she did endorse daily marijuana use, and this may be related to patient's persistent symptoms. Laboratory work, IV fluids, antiemetics ordered. Patient has had 2 CT scans within the last month, most recently 3 days ago for same symptoms. Do not believe there is much utility in repeating scanning at this time unless laboratory work shows significant derangement. Laboratory work shows WBC count 12.1, hemoglobin 13.7, platelets 387, sodium 138, potassium 3.4, chloride 104, creatinine 0.96, glucose 146, normal liver enzymes. Patient given IV fluids and droperidol. Patient is subsequently able to tolerate sips of fluid, however when informed she was going to be discharged patient again began to retch loudly and dry heave into an empty emesis bag without production of vomit. Patient was given an additional dose of droperidol with no further episodes of emesis. Patient was advised that she should follow up with Gastroenterology for her diagnosis of previously diagnosed colitis on CT imaging. Referral provided. Additional anti nausea medications of oral Phenergan and rectal Phenergan provided. Discharge Plan Departure Patient Disposition: Home Clinical Impression: Abdominal pain, Vomiting Instructions: DI for Vomiting -- Adult Activity Restrictions/Additional Instructions: Continue to follow up a light diet for the next several days. Your laboratory work today was normal. I also recommend following up with Gastroenterology for the colitis seen on CTs. Prescriptions: New promethazine 25 mg tablet 25 mg PO Q6H PRN (Reason: nausea and vomiting) Qty: 30 0RF promethazine 25 mg suppository 25 mg WY Q4-6H PRN (Reason: nausea and vomiting) Qty: 12 0RF No Action hydrocortisone [Anusol-HC] 2.5 % cream with perineal applicator 1 applic WY QD-BID PRN (Reason: hemorrhoids) Qty: 30 0RF drospirenone-ethinyl estradiol [ALTAF (28)] 3-0.02 mg tablet 1 tab PO DAILY Qty: 84 3RF ondansetron 4 mg tablet,disintegrating 4 mg PO Q6H PRN (Reason: nausea and vomiting) Qty: 20 0RF 28-800 mg-mcg Tablet 1 cap PO QAM Referrals: Bob Monique MD [Non-Staff] - Miscellaneous,MD Jeanne [Primary Care Provider] - Stand Alone Forms: Patient Portal/API
[2024-04-02] MEDS: DROPERIDOL 5 MG/2 ML VIAL 2.5 MG IV ×2 (20:38→23:31)
[2024-04-02] MEDS: SODIUM CHLORIDE 0.9% 1,000 ML 1000 ML IV (21:11)
== END 2024-04-02 23:50 | disposition home or self-care (01) ==
PROVIDERS: Emergency Provider Emergency Medicine
DX: R10.84 Generalized abdominal pain (principal); R11.2 Nausea with vomiting, unspecified
CPT/HCPCS: 36415; 80053; 81003; 81025; 83690; 85025; 93005; 96361; 96374; 96375; 96376; 99284; J1790; J2405

== ENCOUNTER 2024-05-11 12:51 | Emergency (ER) | payer OTHER, MEDICAID, SELFPAY ==
[2021-11-19 14:40] VITALS: BMI 30.2
[2024-05-11 12:54] VITALS: BP 131/91; PULSE 71; RESP 14; TEMP 36.5; O2SAT 99; BMI 27.3
--- NOTE | 2024-05-11 13:20 | ED.SKABFB ---
HPI - Skin/Abscess/Foreign Bdy <Jessica Mathur PA-C - Last Filed: 05/11/24 15:13> General Chief complaint: Skin/Abscess/Foreign Body Stated complaint: toenail coming off Time Seen by Provider: 05/11/24 13:19 Source: patient Mode of arrival: Ambulatory Limitations: no limitations History of Present Illness HPI narrative: 34-year-old woman presents with concern for right great toenail avulsion/ trying to come off and toe pain. Patient states in the last few weeks she has had 3 different times where she has accidentally gotten her toenail caught and cause it to flip up and back. Yesterday it flipped up pretty significantly and has been painful since then and then today her 2-year-old was dancing on it and accidentally kicked it a little bit and caused it to flip upwards and backwards. She states she tried to get a family member to pull it off or cut it but known was agreeable to do so and she came into the ER for further care. She is unsure when her last tetanus was, she states that she has animals including cats dogs and pigs. She says at no point did she have anything heavy drop her fall onto her toe and she has been able to move it normally. She denies fevers chills or any other symptoms or concerns. Related Data Home Medications Medication Instructions Recorded Confirmed vit no.133-ferrous 1 cap PO QAM 03/09/18 04/09/24 fumarate 28 mg-folic acid 800 mcg tablet () Previous Rx's Medication Instructions Recorded hydrocortisone 2.5 % topical cream 1 applic TN QD-BID PRN hemorrhoids 05/03/22 with perineal applicator #30 grams (Anusol-HC) ondansetron 4 mg disintegrating 4 mg PO Q6H PRN nausea and 03/30/24 tablet vomiting #20 tabs promethazine 25 mg rectal 25 mg TN Q4-6H PRN nausea and 04/02/24 suppository vomiting #12 ea promethazine 25 mg tablet 25 mg PO Q6H PRN nausea and 04/02/24 vomiting #30 tabs clotrimazole 1 % topical cream 1 applic topical BID #45 grams 04/26/24 drospirenone 3 mg-ethinyl 1 tab PO DAILY #84 tabs 04/26/24 estradiol 0.02 mg tablet (ALTAF (28)) cephalexin 500 mg capsule 500 mg PO Q8H 7 days #21 caps 05/11/24 Allergies Allergy/AdvReac Type Severity Reaction Status Date / Time hydrocodone [From Vicodin] AdvReac Vomiting Verified 05/11/24 12:54 Review of Systems <Jessica Mathur PA-C - Last Filed: 05/11/24 15:13> Review of Systems Narrative: See HPI Patient History <Jessica Mathur PA-C - Last Filed: 05/11/24 15:13> Medical History History of severe pre-eclampsia (~2021) Chronic eczema (~2014) Hyperemesis affecting , antepartum (~2020) 2 Vaginal delivery (~2010) Surgical History S/P tonsillectomy and adenoidectomy (~2006) History of placement of ear tubes (~2006) [place] teeth extracted (~2019) Family History Mother No problems noted. Father Family history unknown Grandmother Multiple sclerosis Grandfather S/P CABG x 3 Hyperlipidemia Alcoholic Grandmother Cancer Grandfather No problems noted. Social History marital status: unmarried,living together number of children: 2 household members: significant other, family and children lives independently: Yes caregiver/support person: No pets and animals: Yes (2 dogs, 3 sheep, 50 pigs, chicken, ducks, geese: aware. ) education level: high school occupational status: unemployed (Left job in Jun due to vaccine mandate. 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 special mallory needs: No seatbelt use: always do you feel safe at home: Yes Smoking Status: Current some day smoker second hand exposure: No alcohol intake: former substance use type: marijuana (Quit with . Previously was a daily smoker. ) during the past year weight has: decreased > 10 lbs (lost 12 lbs r/t hyperemesis.) well-balanced diet: rarely or never (Week 4 until present: many days she can't keep anything down. Yesterday was first time she ate in a while.) daily servings fruits/ve-1 (1-2) caffeine: No Type(s) of exercise: walking (Normally walks regularly, but last 6 weeks has felt too poorly. ) frequency: 3-4 times per week duration: 45-60 minutes/day Smoking Status: Current some day smoker alcohol intake frequency: holidays/special occasions only Substance Use Type: marijuana Exam <Jessica Mathur PA-C - Last Filed: 05/11/24 15:13> Narrative Exam Narrative: GENERAL: [34] year old patient appears stated age. Well-developed patient, in mild distress. HEAD: Atraumatic. Normocephalic. EYES: Pupils equal round and reactive. Extraocular motions intact. No scleral icterus. No injection or drainage. ENT: Nose without bleeding, purulent drainage. Airway patent. NECK: Trachea midline. CARDIOVASCULAR: Regular rate and rhythm without murmurs, gallops, or rubs. RESPIRATORY: Clear to auscultation. Breath sounds equal bilaterally. No wheezes, rales, or rhonchi. EXTREMITIES: The right great toenail is flipped upwards vertically and at about 80? from the toenail bed. The toenail bed has some dried blood as well as animal hairs and possibly dirt on it. The nail is attached at the base by the cuticle. There is significant tenderness with palpation at the base of the nail and the toe adjacent to the nail. There is no appreciable swelling or erythema, no drainage present. range of motion of the affected toe is intact. No edema or joint tenderness. NEURO: AOx3. SKIN: There is some old bruising yellowish/purple on the patient's right anterior garcia. No rash or erythema of visible areas Initial Vital Signs Initial Vital Signs: Vital Signs Temperature 97.7 F 05/11/24 12:54 Pulse Rate 71 05/11/24 12:54 Respiratory Rate 14 05/11/24 12:54 Blood Pressure 131/91 H 05/11/24 12:54 Pulse Oximetry 99 05/11/24 12:54 Oxygen Delivery Method Room Air 05/11/24 12:54 <Masha Horowitz DO - Last Filed: 05/13/24 11:28> Initial Vital Signs Initial Vital Signs: Vital Signs Temperature 97.7 F 05/11/24 12:54 Pulse Rate 71 05/11/24 12:54 Respiratory Rate 14 05/11/24 12:54 Blood Pressure 131/91 H 05/11/24 12:54 Pulse Oximetry 99 05/11/24 12:54 Oxygen Delivery Method Room Air 05/11/24 12:54 Procedures <Jessica Mathur PA-C - Last Filed: 05/11/24 15:13> [facility] Procedure Name of Procedure: ring block and toenail cutting of avulsed nail Side (if applicable): right Location: Great toe/nail Time out performed: Yes Technique/Description of procedure performed: Ring block with 1% plain lidocaine 3.5 mL used to numb the patient's great toe on the right. Trim great toe at base of the nail which is completely avulsed and held on only by cuticle back to approximately 2-3 mm in length. Patient tolerated the procedure well. Minimal to no bleeding Patient tolerated procedure: Well Complications: none Additional Comments: cleansed with chlorhexidine prior to numbing and procedure, then cleansed with warm soapy water and scrubbed after nail cut back. Course <Jessica Mathur PA-C - Last Filed: 05/11/24 15:13> Orders Ordered: Discontinued Medications Acetaminophen (Acetaminophen 325 Mg Tablet) 975 mg PO NOW ONE Stop: 05/11/24 13:31 Last Admin: 05/11/24 13:37 Dose: 975 mg Documented By: SHADI Diphtheria/Tetanus/Acell Pertussis (Tet,Diph,Pertuss(Acell),Vac/Pf 0.5 Ml Syringe) 0.5 ml IM .ONCE ONE Stop: 05/11/24 14:33 Last Admin: 05/11/24 14:54 Dose: 0.5 ml Documented By: SHADI Ibuprofen (Ibuprofen 400 Mg Tablet) 800 mg PO NOW ONE Stop: 05/11/24 13:31 Last Admin: 05/11/24 13:36 Dose: 800 mg Documented By: SHADI Lidocaine HCl (Lidocaine 1% 20 Ml) 20 ml SUBCUT NOW ONE Stop: 05/11/24 13:20 Last Admin: 05/11/24 13:35 Dose: 20 ml Documented By: SHADI Vital Signs Vital signs: Vital Signs - 8 hr 05/11/24 12:54 Temperature 97.7 F Pulse Rate 71 Respiratory Rate 14 Blood Pressure 131/91 H Pulse Oximetry 99 Oxygen Delivery Method Room Air <Masha Horowitz DO - Last Filed: 05/13/24 11:28> Orders Ordered: Discontinued Medications Acetaminophen (Acetaminophen 325 Mg Tablet) 975 mg PO NOW ONE Stop: 05/11/24 13:31 Last Admin: 05/11/24 13:37 Dose: 975 mg Documented By: SHADI Diphtheria/Tetanus/Acell Pertussis (Tet,Diph,Pertuss(Acell),Vac/Pf 0.5 Ml Syringe) 0.5 ml IM .ONCE ONE Stop: 05/11/24 14:33 Last Admin: 05/11/24 14:54 Dose: 0.5 ml Documented By: SHADI Ibuprofen (Ibuprofen 400 Mg Tablet) 800 mg PO NOW ONE Stop: 05/11/24 13:31 Last Admin: 05/11/24 13:36 Dose: 800 mg Documented By: SHADI Lidocaine HCl (Lidocaine 1% 20 Ml) 20 ml SUBCUT NOW ONE Stop: 05/11/24 13:20 Last Admin: 05/11/24 13:35 Dose: 20 ml Documented By: SHADI Vital Signs Vital signs: Vital Signs - 8 hr 05/11/24 12:54 Temperature 97.7 F Pulse Rate 71 Respiratory Rate 14 Blood Pressure 131/91 H Pulse Oximetry 99 Oxygen Delivery Method Room Air MDM - Skin/Abscess/Foreign Bdy <Jessica Mathur PA-C - Last Filed: 05/11/24 15:13> Differential Diagnosis Differential diagnosis: Likely other (toenail near complete avulsion, toe infection) Medical Records Attestation: I reviewed the patient's medical records. MDM Narrative Medical decision making narrative: This is a 34-year-old woman presenting with concern for right toe pain and nearly avulsed right toenail after multiple injuries over the last 2 weeks most recently this morning when her 2 yr old son stood on it and flipped backwards again. Patient was agreeable to numbing with a ring block and tolerated this okay, considered removing the nail completely however still attached at the Base of the lunula /cuticle. instead the nail was trimmed back significantly as above and procedures due to it being completely detached from the nail bed. Patient was advised to follow with Podiatry, the area is cleansed today with warm soapy water and scrubbed. Tetanus is updated, prescription for cephalexin given appearance of her toe. she also received ibuprofen and Tylenol today in the emergency department. Advised to keep the area clean and may use topical antibiotics, keep the area covered and away from dirt and other materials, follow with primary care or Podiatry. Return precautions provided, Follow-up plan discussed, all questions answered. Discharge Plan Departure Patient Disposition: Home Clinical Impression: Avulsion of toenail of right foot Great toe pain Qualifiers: Laterality: right Qualified Code(s): M79.674 - Pain in right toe(s) Activity Restrictions/Additional Instructions: *You have been diagnosed with [Toenail avulsion ] *What to do: *Please continue to take your regular medications as directed. [ 1] New medication prescriptions sent to your pharmacy: [ cephalexin, antibiotic] [ ] New medication written as a paper prescription [ ] No new medications given *Please follow up with your primary care provider in 2-3 days, call for an appointment. Let them know you were seen in the Emergency Department and that we ask that you be seen in follow up. We will electronically transmit a record of today's note if your PCP is in our system. you came in today with concern for ear great toenail on the right foot being flipped upward completely painful and getting caught. We numbed up your toe today after cleaning it and considered removing the nail however the top of the base of her nail at the cuticle was still attached and we cut the nail further back so that it will stop flipping up and causing discomfort for you. I do recommend you may want to consider seeing Podiatry for further evaluation and care, it is possible that your nail may never grow out normally in the future as it was completely from the nail bed. Podiatry may be helpful for further care and management of your nail depending on how it goes. I also placing you on antibiotics as this area has been more painful for you recently, tender and it is on your foot and there is more risk for infection. We also updated your tetanus shot today. Please keep the toe clean, you may use topical antibiotic ointments or Vaseline, keep the area wrapped and away from dirt or other things in the environment until it is healing well. I have given you information below for Podiatry you can call them to set up an appointment if you do not follow up with Podiatry I do recommend you follow up with your primary care provider. *If you do not have a primary care provider please contact the [facility] Resource line at [phone]. They will ask some questions about your medical history and help get you set up with a doctor in the community. *Return to Emergency Department if you should have any new, worsening or concerning symptoms, such as [fever greater than 101 F, shaking chills, worsening pain, persistent vomiting or other bothersome symptoms] Prescriptions: New cephalexin 500 mg capsule 500 mg PO Q8H 7 Days Qty: 21 0RF No Action hydrocortisone [Anusol-HC] 2.5 % cream with perineal applicator 1 applic TN QD-BID PRN (Reason: hemorrhoids) Qty: 30 0RF clotrimazole 1 % cream 1 applic topical BID Qty: 45 1RF drospirenone-ethinyl estradiol [ALTAF (28)] 3-0.02 mg tablet 1 tab PO DAILY Qty: 84 3RF ondansetron 4 mg tablet,disintegrating 4 mg PO Q6H PRN (Reason: nausea and vomiting) Qty: 20 0RF promethazine 25 mg tablet 25 mg PO Q6H PRN (Reason: nausea and vomiting) Qty: 30 0RF promethazine 25 mg suppository 25 mg TN Q4-6H PRN (Reason: nausea and vomiting) Qty: 12 0RF 28-800 mg-mcg Tablet 1 cap PO QAM Referrals: Christi Soria DPM [Physician] - (further care, avulsed nail) Iona Walton MD [Primary Care Provider] - Willian Jane DPM [Non-Staff] - (further care, avulsed nail) Stand Alone Forms: Patient Portal/API ED Sign-out <Masha Horowitz DO - Last Filed: 05/13/24 11:28> Cosign ED Attending Cosederature Attestation: I was consulted about this patient I did not see her [id number] discussed cutting toenail off cuticle part remained in place. I was available for consultation.
[2024-05-11] MEDS: LIDOCAINE 1% 20 ML SUBCUT (13:35)
[2024-05-11] MEDS: IBUPROFEN 400 MG TABLET 800 MG PO (13:36)
[2024-05-11] MEDS: ACETAMINOPHEN 325 MG TABLET 975 MG PO (13:37)
[2024-05-11] MEDS: TET,DIPH,PERTUSS(ACELL),VAC/PF 0.5 ML SYRINGE IM (14:54)
[2024-05-11 15:03] VITALS: BP 95/54; PULSE 56; RESP 20; O2SAT 98
== END 2024-05-11 15:04 | disposition home or self-care (01) ==
PROVIDERS: Emergency Provider Student in an Organized Health Care Education/Training Program; PCP Family Medicine
DX: S91.201A Unspecified open wound of right great toe with damage to nail, initial encounter (principal); M79.674 Pain in right toe(s); Z23 Encounter for immunization
CPT/HCPCS: 11730; 90471; 99283; 90715

== ENCOUNTER → 2024-08-02 11:59 | Outpatient (CLI) | payer OTHER, MEDICAID, SELFPAY ==
[2024-05-24 13:27] VITALS: BMI 30.2
[2024-08-02 12:40] LABS: Influenza A - CEPHEID Flu A NEGATIVE (NEGATIVE); Influenza B - CEPHEID Flu B NEGATIVE (NEGATIVE); Respiratory Syncytial Virus Negative (Negative)
[2024-08-02 12:41] LABS: COVID-19 CEPHEID 4-PLEX PCR Negative (Negative)
== END ==
PROVIDERS: PCP Family Medicine; Visit Provider Physician Assistant
DX: R05.1 Acute cough (principal)
CPT/HCPCS: 87635; 87400 ×2; 87420; 0241U

== ENCOUNTER 2024-08-16 15:50 | Emergency (ER) | payer OTHER, MEDICAID, SELFPAY ==
[2024-05-24 13:27] VITALS: BMI 30.2
[2024-08-16] VITALS (7 sets, daily range): BP systolic 174–185; BP diastolic 98–109; PULSE 60–78; RESP 16; TEMP 37.1; O2SAT 96–99; BMI 29.6
[2024-08-16] MEDS: ONDANSETRON 4 MG/2 ML INJ IV (16:29)
[2024-08-16 16:38] LABS: Hematocrit 41.4 % (36-46); Hemoglobin 13.8 g/dL (12.0-16.0); Mean Corpuscular HGB Conc 33.2 % (30-36); Mean Corpuscular Hemoglobin 28.2 PG (26-34); Mean Corpuscular Volume 84.9 fL (80-100); Red Blood Cell Count 4.88 X10^6/uL (4.0-5.2); Red Cell Distribution Width 13.1 % (11.6-14.8); White Blood Cell Count 13.1 X10^3/uL (4.5-11.0)
[2024-08-16 16:40] LABS: Add Manual Diff / Slide Review YES
[2024-08-16 16:58] LABS: Alanine Aminotransferase 19 IU/L (<35); Albumin 4.8 g/dL (3.5-5.0); Albumin Globulin Ratio 1.3 (1.0-2.8); Alkaline Phosphatase 80 U/L (38-126); Aspartate Aminotransferase 34 IU/L (14-36); BUN Creatinine Ratio 10.1 (6-22); Bilirubin Total 0.9 mg/dL (0.2-1.3); Blood Urea Nitrogen 11 mg/dL (7-17); Calcium 9.9 mg/dL (8.4-10.2); Carbon Dioxide 19 mmol/L (22-32); Chloride 103 mmol/L (98-107); Estimated Glomerular Filt Rate > 60 mL/min (>60); Globulin 3.8 g/dL (1.7-4.1); Glucose 132 mg/dL (70-100); HEMOLYSIS < 15 (0-50); Lipase 66 U/L (23-300); Potassium 3.7 mmol/L (3.4-5.1); Sodium 137 mmol/L (137-145); Total Protein 8.6 g/dL (6.3-8.2)
[2024-08-16 17:34] LABS: Neutrophils Absolute Manual 10218 /uL (3000-5900); Smudge Cells 1+; Total Cells Counted 100
[2024-08-16 17:37] LABS: Platelet Count 550 X10^3/uL (150-400)
[2024-08-16] MEDS: SODIUM CHLORIDE 0.9% 1,000 ML 1000 ML IV (18:20)
[2024-08-16] MEDS: ONDANSETRON 4 MG ODT PO (18:20)
--- NOTE | 2024-08-16 19:00 | ED.GENADULT ---
HPI - General Adult General Chief complaint: Abdominal Pain Stated complaint: Colitis Flare Up, Dehydration, Spasms Time Seen by Provider: 08/16/24 18:09 Source: patient Mode of arrival: Ambulatory Limitations: no limitations History of Present Illness HPI narrative: 34-year-old female who states she was a history of ?colitis? states that yesterday she had a flare-up of the colitis. Has a quite a bit of nausea and vomiting. Did have some diarrhea initially but nothing currently. No urinary symptoms. Has generalized abdominal discomfort because of the vomiting. States she was having spasms in her abdomen. Has not had a colonoscopy or endoscopy. No recent travel. No recent antibiotics. Did try her home Zofran without improvement of symptoms. Related Data Previous Rx's Medication Instructions Recorded hydrocortisone 2.5 % topical cream 1 applic TN QD-BID PRN hemorrhoids 05/03/22 with perineal applicator #30 grams (Anusol-HC) promethazine 25 mg rectal 25 mg TN Q4-6H PRN nausea and 04/02/24 suppository vomiting #12 ea promethazine 25 mg tablet 25 mg PO Q6H PRN nausea and 04/02/24 vomiting #30 tabs clotrimazole 1 % topical cream 1 applic topical BID #45 grams 04/26/24 drospirenone 3 mg-ethinyl 1 tab PO DAILY #84 tabs 04/26/24 estradiol 0.02 mg tablet (ALTAF (28)) ondansetron 4 mg disintegrating 4 mg PO Q6H PRN nausea and 07/18/24 tablet vomiting #20 tabs amoxicillin 500 mg capsule 500 mg PO Q12H #20 caps 08/02/24 benzonatate 200 mg capsule 200 mg PO TID PRN cough #30 caps 08/02/24 naproxen 500 mg tablet 500 mg PO BID #30 tabs 08/02/24 metoclopramide HCl 10 mg tablet 10 mg PO Q6H PRN nausea and 08/16/24 vomiting #14 tabs Allergies Allergy/AdvReac Type Severity Reaction Status Date / Time hydrocodone [From Vicodin] AdvReac Vomiting Verified 05/29/24 11:15 Review of Systems Review of Systems ROS Unobtainable: All systems reviewed & are unremarkable except as noted in HPI and below Patient History Medical History History of severe pre-eclampsia (~2021) Chronic eczema (~2014) Hyperemesis affecting , antepartum (~2020) 2 Vaginal delivery (~2010) Surgical History S/P tonsillectomy and adenoidectomy (~2006) History of placement of ear tubes (~2006) [place] teeth extracted (~2019) Family History Mother No problems noted. Father Family history unknown Grandmother Multiple sclerosis Grandfather S/P CABG x 3 Hyperlipidemia Alcoholic Grandmother Cancer Grandfather No problems noted. Social History marital status: unmarried,living together number of children: 2 household members: significant other, family and children lives independently: Yes caregiver/support person: No pets and animals: Yes (2 dogs, 3 sheep, 50 pigs, chicken, ducks, geese: aware. 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 special mallory needs: No seatbelt use: always do you feel safe at home: Yes Smoking Status: Current some day smoker second hand exposure: No alcohol intake: former substance use type: marijuana during the past year weight has: decreased > 10 lbs well-balanced diet: rarely or never daily servings fruits/ve-1 caffeine: No Type(s) of exercise: walking frequency: 3-4 times per week duration: 45-60 minutes/day Smoking Status: Current some day smoker alcohol intake frequency: holidays/special occasions only Substance Use Type: marijuana Exam Initial Vital Signs Initial Vital Signs: Vital Signs Temperature 98.8 F 08/16/24 15:56 Pulse Rate 63 08/16/24 15:56 Respiratory Rate 16 08/16/24 15:56 Blood Pressure 184/100 H 08/16/24 15:56 Pulse Oximetry 99 08/16/24 15:56 Oxygen Delivery Method Room Air 08/16/24 15:56 Const General: cooperative and No ill appearing HENMT Head: normal to inspection and normocephalic Resp Effort & Inspection: normal respiratory effort Cardio Rate: regular rate GI Inspection: normal to inspection and non-distended Palpation: tender Neuro General: patient alert and patient awake Extrem General: capillary refill normal Course Orders Ordered: ED Orders 08/16/24 19:27 Urine Culture Stat Urine Microscopic Stat Discontinued Medications Sodium Chloride (Normal Saline 0.9%) 1,000 mls @ 1,000 mls/hr IV BOLUS ONE Stop: 08/16/24 19:09 Last Infusion: 08/16/24 19:14 Dose: Infused Documented By: Admin: 08/16/24 18:20 Dose: 1,000 mls/hr Documented By: SHADI Metoclopramide HCl (Metoclopramide 10 Mg/2 Ml Inj) 10 mg IV NOW ONE Stop: 08/16/24 19:23 Last Admin: 08/16/24 19:33 Dose: 10 mg Documented By: SHADI Ondansetron HCl (Ondansetron 4 Mg/2 Ml Inj) 4 mg IV NOW PRN PRN Reason: Nausea And Vomiting Last Admin: 08/16/24 16:29 Dose: 4 mg Documented By: HARMONY Ondansetron HCl (Ondansetron 4 Mg Odt) 4 mg PO NOW PRN PRN Reason: Nausea And Vomiting Last Admin: 08/16/24 18:20 Dose: 4 mg Documented By: SHADI Vital Signs Vital signs: Vital Signs - 8 hr 08/16/24 18:09 08/16/24 18:30 08/16/24 18:31 Pulse Rate 68 78 71 Blood Pressure Pulse Oximetry 97 99 98 08/16/24 18:31 08/16/24 19:00 08/16/24 19:00 Pulse Rate 65 Blood Pressure 185/98 H 174/109 H Pulse Oximetry 99 08/16/24 19:34 08/16/24 20:00 Pulse Rate 69 60 Blood Pressure Pulse Oximetry 98 96 Medical Decision Making Lab Data Lab results reviewed: Yes I reviewed the patient's lab results. 08/16/24 16:15 08/16/24 16:15 Labs: Lab Results 08/16/24 08/16/24 Range/Units 16:15 19:27 WBC 13.1 H (4.5-11.0) X10^3/uL RBC 4.88 (4.0-5.2) X10^6/uL Hgb 13.8 (12.0-16.0) g/dL Hct 41.4 (36-46) % MCV 84.9 (80-100) fL MCH 28.2 (26-34) PG MCHC 33.2 (30-36) % RDW 13.1 (11.6-14.8) % Plt Count 550 H (150-400) X10^3/uL Neut % (Auto) Not Reportable Lymph % (Auto) Not Reportable [place] % (Auto) Not Reportable Eos % (Auto) Not Reportable Baso % (Auto) Not Reportable Lymph # (Auto) Not Reportable [place] # (Auto) Not Reportable Baso # (Auto) Not Reportable Total Counted 100 Seg Neutrophils % 78.0 H (38-70) % Lymphocytes % (Manual) 13.0 L (25-45) % Monocytes % (Manual) 9.0 (2-11) % Neutrophils # (Manual) 85961 H (6292-5892) /uL Smudge Cells 1+ H RBC Morphology See below Sodium 137 (137-145) mmol/L Potassium 3.7 (3.4-5.1) mmol/L Chloride 103 (98-107) mmol/L Carbon Dioxide 19 L (22-32) mmol/L BUN 11 (7-17) mg/dL Creatinine 1.09 H (0.52-1.04) mg/dL Estimated GFR > 60 (>60) mL/min BUN/Creatinine Ratio 10.1 (6-22) Glucose 132 H (70-100) mg/dL Calcium 9.9 (8.4-10.2) mg/dL Total Bilirubin 0.9 (0.2-1.3) mg/dL AST 34 (14-36) IU/L ALT 19 (<35) IU/L Alkaline Phosphatase 80 (38-126) U/L Total Protein 8.6 H (6.3-8.2) g/dL Albumin 4.8 (3.5-5.0) g/dL Globulin 3.8 (1.7-4.1) g/dL Albumin/Globulin Ratio 1.3 (1.0-2.8) Lipase 66 (23-300) U/L Urine RBC None seen (0-5/HPF) Urine WBC 0-1/hpf (0-5/HPF) Ur Squamous Epith Cells 0-1 /hpf (0-5/HPF) Urine Bacteria Few (2-10) H (None) Urine Mucus 3+ H D (Negative) Ur Culture Indicated? Cult not indicated Vol Urine Centrifuged 10ml (spun) Point of Care Testing Test Results Negative Urine Dip Bedside Urine Glucose Negative Bedside Urine Bilirubin - Negative Bedside Urine Ketone ++ 40 Urine Specific [place] 1.020 Bedside Urine Occult Blood - Negative Bedside Urine pH 6.0 Bedside Urine Protein +/- 15 Bedside Urine Urobilinogen - Negative Bedside Urine Nitrite - Negative Bedside Urine Leukocytes - Negative Esterase Point of care testing: Point of Care Testing Test Results Negative Urine Dip Bedside Urine Glucose Negative Bedside Urine Bilirubin - Negative Bedside Urine Ketone ++ 40 Urine Specific [place] 1.020 Bedside Urine Occult Blood - Negative Bedside Urine pH 6.0 Bedside Urine Protein +/- 15 Bedside Urine Urobilinogen - Negative Bedside Urine Nitrite - Negative Bedside Urine Leukocytes - Negative Esterase MDM Narrative Medical decision making narrative: Patient reports improvement of symptoms after nausea medication. It seems that the Reglan worked the best for her. Does have a leukocytosis but I suspect that this is stress reaction because of all of the vomiting. She was had multiple CT scans in the past. Do feel that we should hold on any radiologic studies for now. Will discharge home with a prescription for Zofran and instructions to contact her primary doctor as she would benefit from a referral to see gastroenterology. Discharge Plan Departure Patient Disposition: Home Clinical Impression: Nausea and vomiting Instructions: Nausea and Vomiting-Adult Activity Restrictions/Additional Instructions: Continue to take all of your medications as directed. Given your recurrent symptoms a follow-up with a operations/dispatch to discuss further evaluation such as an endoscopy/colonoscopy is needed. You can talk with your primary doctor about this. Return to the emergency department for new symptoms. Prescriptions: New metoclopramide HCl 10 mg tablet 10 mg PO Q6H PRN (Reason: nausea and vomiting) Qty: 14 0RF No Action amoxicillin 500 mg capsule 500 mg PO Q12H Qty: 20 0RF benzonatate 200 mg capsule 200 mg PO TID PRN (Reason: cough) Qty: 30 0RF naproxen 500 mg tablet 500 mg PO BID Qty: 30 0RF hydrocortisone [Anusol-HC] 2.5 % cream with perineal applicator 1 applic TN QD-BID PRN (Reason: hemorrhoids) Qty: 30 0RF clotrimazole 1 % cream 1 applic topical BID Qty: 45 1RF drospirenone-ethinyl estradiol [ALTAF (28)] 3-0.02 mg tablet 1 tab PO DAILY Qty: 84 3RF ondansetron 4 mg tablet,disintegrating 4 mg PO Q6H PRN (Reason: nausea and vomiting) Qty: 20 0RF promethazine 25 mg tablet 25 mg PO Q6H PRN (Reason: nausea and vomiting) Qty: 30 0RF promethazine 25 mg suppository 25 mg TN Q4-6H PRN (Reason: nausea and vomiting) Qty: 12 0RF Referrals: Iona Walton MD [Primary Care Provider] - Stand Alone Forms: Patient Portal/API/Survey
[2024-08-16] MEDS: METOCLOPRAMIDE 10 MG/2 ML INJ IV (19:33)
[2024-08-16 19:53] LABS: Urine Volume 10mL (spun)
[2024-08-16 19:56] LABS: Bacteria Urine Few (2-10); Culture Indicated Urine Cult Not Indicated; Mucus Urine 3+ (Negative); RBC Urine None Seen (0-5/HPF); Squamous Epithelial Cell Urine 0-1 /HPF (0-5/HPF); WBC Urine 0-1/HPF (0-5/HPF)
== END 2024-08-16 20:37 | disposition home or self-care (01) ==
PROVIDERS: Emergency Medicine; Emergency Provider Emergency Medicine; PCP Family Medicine
DX: R11.2 Nausea with vomiting, unspecified (principal)
CPT/HCPCS: 80053; 81003; 81015; 81025; 83690; 85007; 85025; 87086; 96361; 96374; 96375; 99284; J2405; J2765

== ENCOUNTER 2024-12-26 10:20 | Emergency (ER) | payer OTHER, SELFPAY ==
[2024-05-24 13:27] VITALS: BMI 30.2
[2024-12-26] VITALS (12 sets, daily range): BP systolic 100–184; BP diastolic 64–118; PULSE 44–76; RESP 20; TEMP 36.7; O2SAT 93–100; BMI 30.2
[2024-12-26 11:06] LABS: Add Manual Diff / Slide Review NO; Basophils Absolute Auto 200 /uL (0-100); Basophils Percent Auto 1.3 % (0-2); Eosinophils Absolute Auto 0 /uL (0-450); Eosinophils Percent Auto 0.1 % (2-4); Hematocrit 42.7 % (36-46); Hemoglobin 14.3 g/dL (12.0-16.0); Lymphocytes Absolute Auto 1400 /uL (1100-4500); Lymphocytes Percent Auto 11.4 % (25-40); Mean Corpuscular HGB Conc 33.6 % (30-36); Mean Corpuscular Hemoglobin 28.4 PG (26-34); Mean Corpuscular Volume 84.5 fL (80-100); Monocytes Absolute Auto 300 /uL (0-900); Monocytes Percent Auto 2.6 % (3-14); Neutrophils Absolute Auto 10500 /uL (1500-7000); Neutrophils Percent Auto 84.6 % (50-75); Platelet Count 453 X10^3/uL (150-400); Red Blood Cell Count 5.06 X10^6/uL (4.0-5.2); Red Cell Distribution Width 13.1 % (11.6-14.8); White Blood Cell Count 12.4 X10^3/uL (4.5-11.0)
[2024-12-26 11:08] LABS: Pregnancy Test Serum,Qual Negative (Negative)
[2024-12-26 11:12] LABS: Alanine Aminotransferase 31 IU/L (<35); Albumin 5.1 g/dL (3.5-5.0); Albumin Globulin Ratio 1.2 (1.0-2.8); Alkaline Phosphatase 82 U/L (38-126); Aspartate Aminotransferase 67 IU/L (14-36); BUN Creatinine Ratio 12.4 (6-22); Bilirubin Total 0.8 mg/dL (0.2-1.3); Blood Urea Nitrogen 12 mg/dL (7-17); Calcium 10.2 mg/dL (8.4-10.2); Carbon Dioxide 19 mmol/L (22-32); Chloride 101 mmol/L (98-107); Estimated Glomerular Filt Rate > 60 mL/min (>60); Globulin 4.2 g/dL (1.7-4.1); Glucose 153 mg/dL (70-100); HEMOLYSIS < 15 (0-50); Lipase 70 U/L (23-300); Potassium 4.1 mmol/L (3.4-5.1); Sodium 138 mmol/L (137-145); Total Protein 9.3 g/dL (6.3-8.2)
--- NOTE | 2024-12-26 11:28 | DI.CT.S_ITS ---
PROCEDURE: CT ABDOMEN PELVIS W CON INDICATIONS: IV contrast only/abdominal pain/colitis TECHNIQUE: After the administration of intravenous contrast, axial sections acquired from the lung bases to the pubic symphysis. Coronal and sagittal reformats were performed. For radiation dose reduction, the following was used: automated exposure control, adjustment of mA and/or kV according to patient size. COMPARISON: [facility] [place], CT, CT ABDOMEN PELVIS W CON, 03/30/2024, 16:28. FINDINGS: Image quality: Diagnostic. Lower Chest: No significant findings. ABDOMEN: Liver: No solid mass. Gallbladder: No radiopaque gallstones or wall thickening. Biliary ducts: No biliary dilation. Pancreas: No ductal dilation. Spleen: Size is within normal limits. Adrenal Glands: No adrenal nodules. Kidneys and Ureters: No hydronephrosis. No solid mass. No complex renal cystic lesion which requires follow up. Stomach and Bowel: Normal colonic caliber, without significant wall thickening. Normal appendix. Peritoneum: No abnormal intraperitoneal fluid. No free air. Ventral Wall: No significant ventral hernia. Abdominal Nodes: No retroperitoneal or mesenteric adenopathy by size criteria. Vessels: Aorta and inferior vena cava are normal in size. PELVIS: Pelvic Organs: Unremarkable. Bladder: No bladder wall thickening, accounting for underdistention. Pelvic Nodes: No enlarged lymph nodes. Miscellaneous: No inguinal hernias are seen. Bones: No aggressive osseous abnormality. IMPRESSION: No acute abdominal process identified. Colon is unremarkable in appearance. Normal appendix. Dictated by: Peter Tillman M.D. on 12/26/2024 at 13:01 Approved by: Peter Tillman M.D. on 12/26/2024 at 13:05
[2024-12-26 11:29] LABS: Appearance Urine UA CLEAR; Bilirubin Urine UA NEGATIVE (NEGATIVE); Color Urine UA YELLOW; Glucose Urine UA NEGATIVE (Negative); Ketones Urine UA 1+ (NEGATIVE); Leukocyte Esterase Urine UA NEGATIVE (NEGATIVE); Nitrite Urine UA NEGATIVE (Negative); Occult Blood Urine UA NEGATIVE (Negative); Protein Urine UA 3+ (Negative); Specific Gravity Urine UA >=1.030 (1.000-1.035); Urobilinogen Urine UA 0.2 E.U./dL (0.2)
--- NOTE | 2024-12-26 11:30 | ED.ABDPAIN ---
HPI - Abdominal Pain General Chief Complaint: Abdominal Pain Stated Complaint: Per patient having a colitis flare up Time Seen by Provider: 12/26/24 10:49 Source: patient Mode of arrival: Ambulatory History of Present Illness HPI narrative: Patient here for nausea and vomiting abdominal pain for the past 72 hours. Patient started having these recurrent abdominal pains and vomiting for 1 year. Followed by primary care but having difficulty with GI referral due to insurance reasons. Has never had endoscopy EGD colonoscopy. No definitive diagnosis for her symptoms other than colitis. No family history of ulcerative colitis or Crohn's disease. No black or bloody stools. No urinary complaints. Has abdominal pain that is diffuse sharp and crampy. Does not radiate. Eating makes it worse. Related Data Previous Rx's Medication Instructions Recorded hydrocortisone 2.5 % topical cream 1 applic NJ QD-BID PRN hemorrhoids 05/03/22 with perineal applicator #30 grams (Anusol-HC) promethazine 25 mg rectal 25 mg NJ Q4-6H PRN nausea and 04/02/24 suppository vomiting #12 ea promethazine 25 mg tablet 25 mg PO Q6H PRN nausea and 04/02/24 vomiting #30 tabs clotrimazole 1 % topical cream 1 applic topical BID #45 grams 04/26/24 drospirenone 3 mg-ethinyl 1 tab PO DAILY #84 tabs 04/26/24 estradiol 0.02 mg tablet (ALTAF (28)) amoxicillin 500 mg capsule 500 mg PO Q12H #20 caps 08/02/24 benzonatate 200 mg capsule 200 mg PO TID PRN cough #30 caps 08/02/24 naproxen 500 mg tablet 500 mg PO BID #30 tabs 08/02/24 ondansetron 4 mg disintegrating 4 mg PO Q6H PRN nausea and 10/08/24 tablet vomiting #20 tabs metoclopramide HCl 10 mg tablet 10 mg PO Q6H PRN for 10/25/24 nausea/vomiting #14 tabs Allergies Allergy/AdvReac Type Severity Reaction Status Date / Time hydrocodone [From Vicodin] AdvReac Vomiting Verified 12/26/24 10:32 Review of Systems Review of Systems Narrative: GENERAL: Negative chills, fatigue, malaise, fever, sweats. HEENT: Negative sinus pain, ear pain, sore throat RESPIRATORY: Negative dyspnea, cough CARDIOVASCULAR: Negative chest pain, palpitations GASTROINTESTINAL: Positive vomiting, nausea, abdominal pain : Negative dysuria, frequency, hematuria MUSCULOSKELETAL: Negative muscle or bony pain SKIN: Negative rash, skin lesions NEUROLOGIC: Negative weakness, numbness ROS Unobtainable: All systems reviewed & are unremarkable except as noted in HPI and below Patient History Medical History History of severe pre-eclampsia (~2021) Chronic eczema (~2014) Hyperemesis affecting , antepartum (~2020) 2 Vaginal delivery (~2010) Surgical History S/P tonsillectomy and adenoidectomy (~2006) History of placement of ear tubes (~2006) [place] teeth extracted (~2019) Family History Mother No problems noted. Father Family history unknown Grandmother Multiple sclerosis Grandfather S/P CABG x 3 Hyperlipidemia Alcoholic Grandmother Cancer Grandfather No problems noted. Social History marital status: unmarried,living together number of children: 2 household members: significant other, family and children lives independently: Yes caregiver/support person: No pets and animals: Yes (2 dogs, 3 sheep, 50 pigs, chicken, ducks, geese: aware. 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 special mallory needs: No seatbelt use: always do you feel safe at home: Yes Smoking Status: Current some day smoker second hand exposure: No alcohol intake: former substance use type: marijuana during the past year weight has: decreased > 10 lbs well-balanced diet: rarely or never daily servings fruits/ve-1 caffeine: No Type(s) of exercise: walking frequency: 3-4 times per week duration: 45-60 minutes/day Smoking Status: Current some day smoker alcohol intake frequency: holidays/special occasions only Exam Narrative Exam Narrative: GENERAL: in no distress, not toxic not dyspneic HEAD: Normocephalic. EYES: Pupils equal round ENT: Mucous membranes moist. NECK: Trachea midline. CARDIOVASCULAR: Regular rate and rhythm RESPIRATORY: Clear to auscultation. Breath sounds equal bilaterally. No wheezes, rales, or rhonchi. GASTROINTESTINAL: Abdomen soft, mild upper half tenderness no peritoneal signs bowel sounds are present no guarding or rebound. No CVA tenderness. EXTREMITIES: No gross deformities. BACK: No flank tenderness. NEURO: AOx4. Clear speech SKIN: Warm and dry PSYCH: Not anxious, is cooperative Initial Vital Signs Initial Vital Signs: Vital Signs Pulse Rate 69 12/26/24 10:26 Blood Pressure 184/118 H 12/26/24 10:26 Pulse Oximetry 99 12/26/24 10:26 Course Orders Ordered: Discontinued Medications Hydromorphone HCl (Hydromorphone 1 Mg Inj) 1 mg IV NOW ONE Stop: 12/26/24 11:29 Last Admin: 12/26/24 11:47 Dose: 1 mg Documented By: SHARON Sodium Chloride (Normal Saline 0.9%) 1,000 mls @ 1,000 mls/hr IV BOLUS ONE Stop: 12/26/24 12:27 Last Infusion: 12/26/24 13:24 Dose: Infused Documented By: Admin: 12/26/24 11:47 Dose: 1,000 mls/hr Documented By: SHARON Ondansetron HCl (Ondansetron 4 Mg/2 Ml Inj) 4 mg IV NOW ONE Stop: 12/26/24 11:29 Last Admin: 12/26/24 11:47 Dose: 4 mg Documented By: SHARON Vital Signs Vital signs: Vital Signs - 8 hr 12/26/24 10:26 12/26/24 10:26 12/26/24 10:29 Temperature 98.1 F Pulse Rate 69 57 L Respiratory Rate 20 Blood Pressure 184/118 H 184/118 H Pulse Oximetry 99 99 Oxygen Delivery Method Room Air 12/26/24 10:30 12/26/24 10:31 12/26/24 10:31 Temperature Pulse Rate 57 L 56 L Respiratory Rate Blood Pressure 157/87 H Pulse Oximetry 100 100 Oxygen Delivery Method 12/26/24 11:25 12/26/24 11:30 12/26/24 11:30 Temperature Pulse Rate 76 55 L Respiratory Rate Blood Pressure 116/75 Pulse Oximetry 93 95 Oxygen Delivery Method Room Air 12/26/24 12:10 12/26/24 12:18 12/26/24 12:18 Temperature Pulse Rate 66 48 L Respiratory Rate Blood Pressure 100/64 Pulse Oximetry 98 94 Oxygen Delivery Method Room Air MDM - Abdominal Pain Lab Data 12/26/24 10:30 12/26/24 10:30 Labs: Lab Results 12/26/24 12/26/24 Range/Units 10:30 11:00 WBC 12.4 H (4.5-11.0) X10^3/uL RBC 5.06 (4.0-5.2) X10^6/uL Hgb 14.3 (12.0-16.0) g/dL Hct 42.7 (36-46) % MCV 84.5 (80-100) fL MCH 28.4 (26-34) PG MCHC 33.6 (30-36) % RDW 13.1 (11.6-14.8) % Plt Count 453 H (150-400) X10^3/uL Neut % (Auto) 84.6 H (50-75) % Lymph % (Auto) 11.4 L (25-40) % [place] % (Auto) 2.6 L (3-14) % Eos % (Auto) 0.1 L (2-4) % Baso % (Auto) 1.3 (0-2) % Neut # (Auto) 22590 H (6163-5772) /uL Lymph # (Auto) 1400 (0733-9336) /uL [place] # (Auto) 300 (0-900) /uL Eos # (Auto) 0 (0-450) /uL Baso # (Auto) 200 H (0-100) /uL Sodium 138 (137-145) mmol/L Potassium 4.1 (3.4-5.1) mmol/L Chloride 101 (98-107) mmol/L Carbon Dioxide 19 L (22-32) mmol/L BUN 12 (7-17) mg/dL Creatinine 0.97 (0.52-1.04) mg/dL Estimated GFR > 60 (>60) mL/min BUN/Creatinine Ratio 12.4 (6-22) Glucose 153 H (70-100) mg/dL Calcium 10.2 (8.4-10.2) mg/dL Total Bilirubin 0.8 (0.2-1.3) mg/dL AST 67 H (14-36) IU/L ALT 31 (<35) IU/L Alkaline Phosphatase 82 (38-126) U/L Total Protein 9.3 H (6.3-8.2) g/dL Albumin 5.1 H (3.5-5.0) g/dL Globulin 4.2 H (1.7-4.1) g/dL Albumin/Globulin Ratio 1.2 (1.0-2.8) Lipase 70 (23-300) U/L Serum , Qual Negative (Negative) Urine Color Yellow Urine Appearance Clear Urine pH 6.0 (4.5-8.0) Ur Specific [place] >=1.030 H (1.000-1.035) Urine Protein 3+ H (Negative) Urine Glucose (UA) Negative (Negative) g/dL Urine Ketones 1+ H (NEGATIVE) Urine Occult Blood Negative (Negative) Urine Nitrate Negative (Negative) Urine Bilirubin Negative (NEGATIVE) Urine Urobilinogen 0.2 (0.2) E.U./dL Ur Leukocyte Esterase Negative (NEGATIVE) Urine RBC 0-1/hpf (0-5/HPF) Urine WBC 5-10/hpf H (0-5/HPF) Ur Squamous Epith Cells 5-10 /hpf H (0-5/HPF) Urine Bacteria Occasional (0-1) (None) Ur Culture Indicated? Cult not indicated Vol Urine Centrifuged 10ml (spun) Imaging Data CT scan - abdomen/pelvis: Radiologist's Impression: [place] [address] CT Scan Report Signed Patient: Laurie Ferrera MR#: [id number] : 1990 Acct:[id number] Age/Sex: 34 / F Date of Service: 12/26/24 Loc: ED Accession Number: [id number] Procedure: CT abdomen pelvis w con Ordering Provider: Jeremias Ibarra MD PROCEDURE: CT ABDOMEN PELVIS W CON INDICATIONS: IV contrast only/abdominal pain/colitis TECHNIQUE: After the administration of intravenous contrast, axial sections acquired from the lung bases to the pubic symphysis. Coronal and sagittal reformats were performed. For radiation dose reduction, the following was used: automated exposure control, adjustment of mA and/or kV according to patient size. COMPARISON: [facility], CT, CT ABDOMEN PELVIS W CON, 03/30/2024, 16:28. FINDINGS: Image quality: Diagnostic. Lower Chest: No significant findings. ABDOMEN: Liver: No solid mass. Gallbladder: No radiopaque gallstones or wall thickening. Biliary ducts: No biliary dilation. Pancreas: No ductal dilation. Spleen: Size is within normal limits. Adrenal Glands: No adrenal nodules. Kidneys and Ureters: No hydronephrosis. No solid mass. No complex renal cystic lesion which requires follow up. Stomach and Bowel: Normal colonic caliber, without significant wall thickening. Normal appendix. Peritoneum: No abnormal intraperitoneal fluid. No free air. Ventral Wall: No significant ventral hernia. Abdominal Nodes: No retroperitoneal or mesenteric adenopathy by size criteria. Vessels: Aorta and inferior vena cava are normal in size. PELVIS: Pelvic Organs: Unremarkable. Bladder: No bladder wall thickening, accounting for underdistention. Pelvic Nodes: No enlarged lymph nodes. Miscellaneous: No inguinal hernias are seen. Bones: No aggressive osseous abnormality. IMPRESSION: No acute abdominal process identified. Colon is unremarkable in appearance. Normal appendix. Dictated by: Peter Tillman M.D. on 12/26/2024 at 13:01 Approved by: Peter Tillman M.D. on 12/26/2024 at 13:05 [facility] Narrative Medical decision making narrative: Patient here for nausea and vomiting abdominal pain for the past 72 hours. Patient started having these recurrent abdominal pains and vomiting for 1 year. Followed by primary care but having difficulty with GI referral due to insurance reasons. Has never had endoscopy EGD colonoscopy. No definitive diagnosis for her symptoms other than colitis. No family history of ulcerative colitis or Crohn's disease. No black or bloody stools. No urinary complaints. Has abdominal pain that is diffuse sharp and crampy. Does not radiate. Eating makes it worse. After history and exam, CBC CMP lipase test CT abdomen pelvis Dilaudid Zofran normal saline. Patient states she does not think she is allergic to Dilaudid. She has had fentanyl in the past. [facility] Medical records reviewed: Seen here August 16, 2024 as well as April 02, 2024 Differential considered: Includes but not limited to colitis ulcerative colitis Crohn's bowel obstruction appendicitis cholecystitis Lab Test results independently reviewed as above. Pertinent findings: WBC 12.4 hemoglobin 14.3 negative urinalysis positive ketones negative leukocyte esterase negative nitrate Imaging studies independently reviewed: CT abdomen pelvis no acute finding. No colitis. Normal appendix Consultations: None indicated at this time Treatments: Zofran Dilaudid normal saline Re-evaluations: 2:00 p.m.. Patient feeling much better. Smiling. Pain-free. No nausea or vomiting. Reviewed with her results. They are reassuring. No colitis. She will follow up with her primary care for referral for Gastroenterology Services for endoscopy. She desires discharge home. Discussion: Appropriate for discharge home exam is reassuring. Return precautions reviewed with patient. No antibiotics or prescriptions are indicated. 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 She desires discharge home. Diagnosis: Abdominal pain Discharge Plan Departure Patient Disposition: Home Clinical Impression: Abdominal pain Qualifiers: Abdominal location: unspecified location Qualified Code(s): R10.9 - Unspecified abdominal pain Instructions: DI for Abdominal Pain-Adult Activity Restrictions/Additional Instructions: Your laboratory results and CT scan imaging are reassuring. I am glad you are feeling better. No driving operating machinery today as you have been given pain medication. No new prescriptions are indicated. Please see your family doctor for Gastroenterology referral for colonoscopy and endoscopy of the stomach. Keep well hydrated. Return if worse if any questions or concerns. Prescriptions: No Action amoxicillin 500 mg capsule 500 mg PO Q12H Qty: 20 0RF benzonatate 200 mg capsule 200 mg PO TID PRN (Reason: cough) Qty: 30 0RF naproxen 500 mg tablet 500 mg PO BID Qty: 30 0RF hydrocortisone [Anusol-HC] 2.5 % cream with perineal applicator 1 applic NJ QD-BID PRN (Reason: hemorrhoids) Qty: 30 0RF clotrimazole 1 % cream 1 applic topical BID Qty: 45 1RF drospirenone-ethinyl estradiol [ALTAF (28)] 3-0.02 mg tablet 1 tab PO DAILY Qty: 84 3RF ondansetron 4 mg tablet,disintegrating 4 mg PO Q6H PRN (Reason: nausea and vomiting) Qty: 20 0RF metoclopramide HCl 10 mg tablet 10 mg PO Q6H PRN (Reason: for nausea/vomiting) Qty: 14 0RF promethazine 25 mg tablet 25 mg PO Q6H PRN (Reason: nausea and vomiting) Qty: 30 0RF promethazine 25 mg suppository 25 mg NJ Q4-6H PRN (Reason: nausea and vomiting) Qty: 12 0RF Referrals: Iona Walton MD [Primary Care Provider] - Stand Alone Forms: Patient Portal/API/Survey, Work Release Note
[2024-12-26 11:41] LABS: Bacteria Urine Occasional (0-1); Culture Indicated Urine Cult Not Indicated; RBC Urine 0-1/HPF (0-5/HPF); Squamous Epithelial Cell Urine 5-10 /HPF (0-5/HPF); Urine Volume 10mL (spun); WBC Urine 5-10/HPF (0-5/HPF)
[2024-12-26] MEDS: HYDROMORPHONE 1 MG INJ IV (11:47)
[2024-12-26] MEDS: ONDANSETRON 4 MG/2 ML INJ IV (11:47)
[2024-12-26] MEDS: SODIUM CHLORIDE 0.9% 1,000 ML 1000 ML IV (11:47)
== END 2024-12-26 14:22 | disposition home or self-care (01) ==
PROVIDERS: Emergency Provider Emergency Medicine; PCP Family Medicine
DX: R10.9 Unspecified abdominal pain (principal); R11.2 Nausea with vomiting, unspecified
CPT/HCPCS: 36415; 74177; 80053; 81001; 83690; 84703; 85025; 96361; 96374; 96375; 99284; J1171; J2405; Q9967

== ENCOUNTER 2025-07-26 14:51 | Emergency (ER) | payer OTHER, SELFPAY ==
[2024-05-24 13:27] VITALS: BMI 30.2
[2025-07-26] VITALS (18 sets, daily range): BP systolic 108–206; BP diastolic 57–109; PULSE 55–78; RESP 16–22; TEMP 36.4–36.8; O2SAT 94–100; BMI 28.3
--- NOTE | 2025-07-26 15:21 | ED.NAVMDI ---
HPI - Nausea/Vomiting/Diarrhea General Chief complaint: Nausea/Vomiting/Diarrhea Stated complaint: vomit since tue, out of anti nausea, fingers numb Time Seen by Provider: 07/26/25 15:21 Source: patient Mode of arrival: Ambulatory History of Present Illness HPI Narrative: 35-year-old woman presents with 48 hours of severe vomiting no significant diarrhea, no fevers. Increasing abdominal pain with the increasing vomiting, dehydration and lack of p.o. intake. She notes that she has occasional episodes that are similar. She does use marijuana daily and has done so for a number of years. Showers do help with the nausea, Zofran does not. She is not vomiting up any blood, she does not use significant amount of alcohol. At home she has tried Zofran as well as promethazine and neither are effective in controlling her vomiting. She has noted no fevers, shortness for breath, palpitations or overt chest pain. Related Data Previous Rx's ?Medication ?Instructions ?Recorded hydrocortisone 2.5 % topical cream 1 applic NJ QD-BID PRN hemorrhoids 05/03/22 with perineal applicator #30 grams (Anusol-HC) promethazine 25 mg rectal 25 mg NJ Q4-6H PRN nausea and 04/02/24 suppository vomiting #12 ea promethazine 25 mg tablet 25 mg PO Q6H PRN nausea and 04/02/24 vomiting #30 tabs amoxicillin 500 mg capsule 500 mg PO Q12H #20 caps 08/02/24 benzonatate 200 mg capsule 200 mg PO TID PRN cough #30 caps 08/02/24 naproxen 500 mg tablet 500 mg PO BID #30 tabs 08/02/24 ondansetron 4 mg disintegrating 4 mg PO Q6H PRN nausea and 10/08/24 tablet vomiting #20 tabs metoclopramide HCl 10 mg tablet 10 mg PO Q6H PRN for 10/25/24 nausea/vomiting #14 tabs clotrimazole 1 % topical cream 1 applic topical BID #45 grams 02/20/25 ondansetron 4 mg disintegrating 4 mg PO Q6H PRN nausea and 06/09/25 tablet vomiting #20 tabs drospirenone 3 mg-ethinyl 1 tab PO DAILY #84 tabs 07/11/25 estradiol 0.02 mg tablet haloperidol 2 mg tablet 2 mg PO TID nausea #14 tabs 07/26/25 Allergies Allergy/AdvReac Type Severity Reaction Status Date / Time hydrocodone (From Vicodin) AdvReac Vomiting Verified 07/26/25 15:05 Review of Systems Review of Systems Narrative: Pertinent positive and negative findings as per HPI Patient History Medical History (Updated 07/26/25 @ 20:23 by Cathie Shields MD) Cannabinoid hyperemesis syndrome History of severe pre-eclampsia (~2021) Chronic eczema (~2014) Hyperemesis affecting , antepartum (~2020) 2 Vaginal delivery (~2010) Surgical History S/P tonsillectomy and adenoidectomy (~2006) History of placement of ear tubes (~2006) [place] teeth extracted (~2019) Family History Mother No problems noted. Father Family history unknown Grandmother Multiple sclerosis Grandfather S/P CABG x 3 Hyperlipidemia Alcoholic Grandmother Cancer Grandfather No problems noted. Social History marital status: unmarried,living together number of children: 2 household members: significant other, family and children lives independently: Yes caregiver/support person: No pets and animals: Yes (2 dogs, 3 sheep, 50 pigs, chicken, ducks, geese: aware. 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 special mallory needs: No seatbelt use: always do you feel safe at home: Yes second hand exposure: No alcohol intake: former substance use type: marijuana during the past year weight has: decreased > 10 lbs well-balanced diet: rarely or never daily servings fruits/ve-1 caffeine: No Type(s) of exercise: walking frequency: 3-4 times per week duration: 45-60 minutes/day alcohol intake frequency: holidays/special occasions only Exam Initial Vital Signs Initial Vital Signs: Vital Signs Temperature 97.5 F L 07/26/25 15:00 Pulse Rate 71 07/26/25 15:00 Respiratory Rate 22 07/26/25 15:00 Blood Pressure 200/109 H 07/26/25 15:00 Pulse Oximetry 100 07/26/25 15:00 Oxygen Delivery Method Room Air 07/26/25 15:00 General: Dehydrated, retching, appears uncomfortable but is cooperative HEENT: Dry mucous membranes, normal sclera with reactive pupils, Respiratory: Lungs are clear to auscultation, no wheezing no rales no rhonchi. Full and symmetrical air movement Cardiac: Regular rate and rhythm no murmurs no bruits Abdomen: Soft, mild diffuse tenderness without rebound or guarding. Skin: Warm and dry, no rashes Neurologic: Grossly neurologically intact with no obvious asymmetries or abnormalities Extremities: No trauma, Psych: Cooperative, appropriate insight and affect Course Orders Ordered: ED Orders 07/26/25 15:05 Complete Blood Count AUTO DIFF Stat Comprehensive Metabolic Panel Stat Lipase Stat Ondansetron HCl (Ondansetron 4 Mg/2 Ml Inj) 4 mg IV NOW PRN PRN Reason: Nausea And Vomiting Ondansetron HCl (Ondansetron 4 Mg Odt) 4 mg PO NOW PRN PRN Reason: Nausea And Vomiting Vital Signs Vital signs: Vital Signs - 8 hr 07/26/25 15:00 Temperature 97.5 F L Pulse Rate 71 Respiratory Rate 22 Blood Pressure 200/109 H Pulse Oximetry 100 Oxygen Delivery Method Room Air MDM - Nausea/Vomiting/Diarrhea MDM Narrative Medical decision making narrative: 35-year-old woman with vomiting for 48 hours complaining of some mild tingling fingertips. Better with a hot shower, has had similar episodes does smoke marijuana regularly concern for cannabinoid hyperemesis syndrome is raised. Possibility of DKA, bowel obstruction, viral syndrome, food poisoning all considered Labs CBC is unremarkable Chemistries show slightly low potassium at 3.3 appropriate renal function remainder is unremarkable Lipase is normal Treatment: He is given a total of 2 L of Zofran, 25 mg of Benadryl, 1.25 mg of IV enough seen and half a mg Dilaudid. On re-evaluation she is certainly looking better, no more abdominal pain, blood pressure has come down nicely, she is able to tolerate some sanju sue and crackers Discussion: 35-year-old woman with 48 hours of severe vomiting without fever or diarrhea. Most likely explanation is cannabinoid hyperemesis syndrome given that she has responded well to hot showers as well as Haldol with minimal response to Zofran. She has been rehydrated and is tolerating liquids and crackers at this point. We discussed doing her own research on cannabinoid hyperemesis syndrome and considering a 3 to six-month trial of marijuana abstinence to see if she felt better. At this point there is no indication for advanced imaging or further workup. She is safe for home discharge Discharge Plan Departure Patient Disposition: Home Clinical Impression: Cannabinoid hyperemesis syndrome Instructions: DI for Cannabinoid Hyperemesis Syndrome Activity Restrictions/Additional Instructions: Thank you for coming in today I suspect that your vomiting is from cannabinoid hyperemesis syndrome. We tend to see this in people who have been long-term daily users of marijuana. Why it all of a sudden starts and there is periods where it is worrisome periods where your find we still do not completely understand. Typically people will feel better in a very hot shower and with the use of nonstandard nausea medications such as Haldol rather than Zofran [email or web address] has some excellent discussions, check groups and articles regarding cannabinoid hyperemesis syndrome if you want to do a bit more research herself I am going to give you a prescription for Haldol to use for nausea and vomiting if needed. Prescription was sent to [facility] in [place] If you find that you are getting worse or develop any new symptoms, please feel free to return to the emergency department for further evaluation. Prescriptions: New haloperidol 2 mg tablet 2 mg PO TID Qty: 14 0RF No Action amoxicillin 500 mg capsule 500 mg PO Q12H Qty: 20 0RF benzonatate 200 mg capsule 200 mg PO TID PRN (Reason: cough) Qty: 30 0RF naproxen 500 mg tablet 500 mg PO BID Qty: 30 0RF hydrocortisone [Anusol-HC] 2.5 % cream with perineal applicator 1 applic [place] QD-BID PRN (Reason: hemorrhoids) Qty: 30 0RF ondansetron 4 mg tablet,disintegrating 4 mg PO Q6H PRN (Reason: nausea and vomiting) Qty: 20 0RF metoclopramide HCl 10 mg tablet 10 mg PO Q6H PRN (Reason: for nausea/vomiting) Qty: 14 0RF clotrimazole 1 % cream 1 applic topical BID Qty: 45 1RF drospirenone-ethinyl estradiol 3-0.02 mg tablet 1 tab PO DAILY Qty: 84 0RF promethazine 25 mg tablet 25 mg PO Q6H PRN (Reason: nausea and vomiting) Qty: 30 0RF promethazine 25 mg suppository 25 mg NJ Q4-6H PRN (Reason: nausea and vomiting) Qty: 12 0RF ondansetron 4 mg tablet,disintegrating 4 mg PO Q6H PRN (Reason: nausea and vomiting) Qty: 20 0RF Referrals: Iona Walton MD [Primary Care Provider, Family Practice] Stand Alone Forms: Patient Portal/API
[2025-07-26] MEDS: ONDANSETRON 4 MG/2 ML INJ IV (15:23)
[2025-07-26 15:29] LABS: Add Manual Diff / Slide Review NO; Hematocrit 42.7 % (36-46); Hemoglobin 14.8 g/dL (12.0-16.0); Lymphocytes Absolute Auto 3400 /uL (1100-4500); Mean Corpuscular HGB Conc 34.6 % (30-36); Mean Corpuscular Hemoglobin 28.5 PG (26-34); Mean Corpuscular Volume 82.3 fL (80-100); Platelet Count 511 X10^3/uL (150-400)
[2025-07-26 15:43] LABS: Alanine Aminotransferase 33 IU/L (<35); Albumin 4.9 g/dL (3.5-5.0); Albumin Globulin Ratio 1.3 (1.0-2.8); Alkaline Phosphatase 77 U/L (38-126); Blood Urea Nitrogen 14 mg/dL (7-17); Calcium 9.8 mg/dL (8.4-10.2); Carbon Dioxide 23 mmol/L (22-32); Chloride 96 mmol/L (98-107); Estimated Glomerular Filt Rate > 60 mL/min (>60); Globulin 3.7 g/dL (1.7-4.1); Glucose 170 mg/dL (70-99); HEMOLYSIS < 15 (0-50); Lipase 127 U/L (23-300); Potassium 3.3 mmol/L (3.4-5.1); Sodium 134 mmol/L (137-145); Total Protein 8.6 g/dL (6.3-8.2)
[2025-07-26] MEDS: SODIUM CHLORIDE 0.9% 1,000 ML 1000 ML IV ×2 (16:00→18:05)
[2025-07-26] MEDS: diphenhydrAMINE 50 MG/ML VIAL 25 MG IV (16:13)
[2025-07-26] MEDS: droPERidol 2.5 MG/ML VIAL 1.25 MG IV (16:15)
== END 2025-07-26 20:33 | disposition home or self-care (01) ==
PROVIDERS: Emergency Medicine; Emergency Provider Emergency Medicine; PCP Family Medicine
DX: R11.16 Cannabis hyperemesis syndrome (principal); F12.90 Cannabis use, unspecified, uncomplicated
CPT/HCPCS: 36415; 80053; 81003; 81025; 83690; 85025; 96361; 96374; 96375; 99284; J1171; J1200; J1790; J2405; J7030

== ENCOUNTER → 2025-09-04 08:03 | Outpatient (CLI) | payer OTHER, SELFPAY ==
[2025-08-05 13:24] VITALS: BMI 30.2
--- NOTE | 2025-09-04 08:05 | DI.NM.S_ITS ---
PROCEDURE: NM GASTRIC EMPTYING STUDY RADIOPHARMACEUTICAL: 1 mCi Tc-99m sulfur colloid in an egg sandwich. INDICATIONS: nausea, emesis TECHNIQUE: A Tc-99m labeled sulfur colloid labeled egg sandwich or oatmeal was served to the patient. Anterior and posterior planar images of the abdomen were obtained at 0 minutes and 30 minutes, then at hourly intervals up to 4 hours. The patient was upright and ambulating during the interval. COMPARISON: None. FINDINGS: The percentage of tracer retained at specific time points are as follows: Time point Percent gastric retention Normal range 30 minutes 76% 70% or more 1 hour 47% 30% to 90% 2 hours 16% 60% or less 3 hours 11% 30% or less 4 hours 3% 10% or less IMPRESSION: Normal gastric emptying Dictated by: Rod Dillard M.D. on 09/04/2025 at 12:37 Approved by: Rod Dillard M.D. on 09/04/2025 at 12:38
== END ==
LOC: NUCM 08:04
PROVIDERS: PCP Family Medicine; Referring Provider Family Medicine; Visit Provider Family Medicine
DX: K30 Functional dyspepsia (principal); R11.0 Nausea
CPT/HCPCS: 78264; A9541